=== PATIENT | female | born 1940 | race African-American/Black ===

== ENCOUNTER 2023-06-07 13:43 | Emergency (ER) | payer MEDICARE, OTHER, SELFPAY ==
[2023-06-07] VITALS (7 sets, daily range): BP systolic 136–174; BP diastolic 69–111
[2023-06-07 14:10] LABS: Glucose - Point of Care 109 mg/dl (70-99)
[2023-06-07 14:14] LABS: % Basophils 0.4 % (0-2); % Eosinophils 1.2 % (0-6); % Immature Granulocytes 0.4 % (0-0.5); % Lymphocytes 25.6 % (20.5-51.1); % Monocytes 6.3 % (1.7-9.3); % Neutrophils 66.1 % (42.2-75.2); Absolute Eosinophils 0.1 10^3/uL (0-0.7); Absolute Monocytes 0.5 10^3/uL (0.1-0.6); Absolute Neutrophils 5.2 10^3/uL (1.4-6.5); Hematocrit 45.2 % (37.0-47.0); Hemoglobin 13.9 g/dL (12.0-16.0); Mean Corp Hgb Conc. 30.8 g/dL (33.0-37.0); Mean Corpuscular Hgb 26.3 pg (27.0-31.0); Mean Corpuscular Volume 85.4 fL (81.0-99.0); Mean Platelet Volume 9.7 fL (7.4-10.4); Nucleated Red Blood Cells % 0 %; Platelet Count 192 10^3/uL (130-400); Red Blood Cell Count 5.29 10^6/uL (4.20-5.40); Red Cell Dist. Width 14.3 % (11.5-14.5); White Blood Cell Count 7.8 10^3/uL (4.8-10.8)
[2023-06-07 14:29] LABS: ALT (SGPT) 15 U/L (0-35); AST (SGOT) 25 U/L (14-36); Albumin 4.2 g/dl (3.5-5.0); Alkaline Phosphatase 81 U/L (38-126); Blood Urea Nitrogen 41 mg/dl (7-17); Calcium 9.8 mg/dl (8.4-10.2); Carbon Dioxide 33 mmol/L (22-30); Chloride 106 mmol/L (98-107); Glucose 121 mg/dl (70-99); Potassium 4.1 mmol/L (3.5-5.1); Sodium 145 mmol/L (135-145); Total Bilirubin 0.7 mg/dl (0.2-1.3); Total Protein 7.5 g/dl (6.3-8.2); eGFR 45.48
--- NOTE | 2023-06-07 16:05 | ED.GENMED ---
Addendum entered and electronically signed by Kushal Perdue PA-C 06/10/23 07:16:
Urine culture results were faxed to [facility] where patient is a long-term resident in her senior care facility. She was treated with 1 dose of Monuril here in the ER.
Original Note:
History of Present Illness
General
Chief Complaint: Failure to Thrive
Source: patient, skilled nursing and skilled nursing records
Exam Limitations: dementia
Time Seen by Provider: 06/07/23 15:13
Nursing documentation reviewed up to this point in time: agreed with
Travel History
Have you had any contact with someone who has COVID-19?: No
Do you have any symptoms of coronavirus? Fever > 100 degrees, chills, cough, shortness of breath, sore throat, loss of taste or smell, muscle aches, or headache?: No
History of Present Illness
History of Present Illness:
82-year-old female from [facility] here for reportedly losing 12 pounds in 4 days and eating very little. She has a history of dementia with behavioral disturbance, as her baseline, HTN, depressive disorder, dysphagia, type 2 diabetes,
caloric malnutrition, GERD, HLD, anxiety, bipolar, CKD, she is unable to provide a history, she does not know where she is. She denies pain specifically abdominal pain or chest pain.
I spoke with Nupur ZURITA, states she started not eating as much as usual over the past month. She could not be convinced to eat anymore or she would scratch and bite, is becoming more cantankerous, no complaint of pain, she states patient was on
hospice at 1 point but her son took her off.
Past History
Past History
ED Past Medical History: GERD, HTN, Hypercholesterolemia, NIDDM, Psychiatric (Hallucination, dementia with behavioral disturbance) and Other (Cerebral aneurysm, Dementia, generalized muscle weakness/impaired mobility, malnutrition)
ED Past Surgical History: None
Social History
Tobacco: Non-smoker
Alcohol: None
Drug: None
Personal: Single
Living: skilled nursing ([place])
Employment: Not employed
Family History
Family History: Unable to obtain
Review of Systems
Review of Systems
Allergies reviewed?: Yes
Unable to obtain full review of systems at this time due to: dementia
Other source history: skilled nursing
All Other Systems: ROS reviewed and negative except as documented in HPI and ROS
Constitutional: Denies fever
Respiratory: Denies trouble breathing
ABD/GI: Reports anorexia; Denies vomiting, diarrhea, bloody stools or black stools
Musculoskeletal: Denies edema
Phy Exam
Physical Exam
Physical Exam:
GENERAL: Cachectic, no acute distress. Alert, demented, cannot say where she is.
CONSTITUTIONAL: Afebrile.
EYES: PERRL, conjunctivae normal
ENMT: moist mucus membranes, Pharynx nl
RESPIRATORY: Regular respirations, nonlabored, lungs clear.
CARDIOVASCULAR: Regular rate and rhythm, no murmurs, no rubs.
GI: Soft, nontender, normal BS
Rectal: No stool in rectal vault
MUSCULOSKELETAL: Knees contracted flexed 60 degrees, well perfused. No edema
SKIN: Warm, dry, normal
PSYCH: Calm demented
NEUROLOGIC: Awake, alert. No focal neurological deficits
Course
Orders/Labs/Results
Orders:
Orders
06/07/23 14:01
Electrocardiogram (*1) Urgent
Reason for Study: Abdominal Pain
EKG- Treatment ONCE
06/07/23 14:02
Complete Blood Count/With Diff Urgent
Comprehensive Metabolic Panel Urgent
06/07/23 15:27
Straight cath- Treatment ONCE
06/07/23 15:28
0.9% Sodium Chloride 500 ml [Nss] 500 ml IV BOLUS
06/07/23 16:24
Urinalysis Reflex To Culture Urgent
Date Specimen was Collected: 03/04/24
Time Specimen was Collected: 16:23
Urine Microscopic Reflex Cult Urgent
Urine Culture Urgent
FIDELINA Source: U
Specimen Description:
Date Specimen was Collected: 06/07/23
Time Specimen was Collected: 16:23
06/07/23 17:46
Fosfomycin [Monurol] 3 gm PO ONCE ONE
Abnormal Lab Results
06/07/23 06/07/23 06/07/23
14:02 14:08 16:24
MCH 26.3 L pg
(27.0-31.0)
MCHC 30.8 L g/dL
(33.0-37.0)
Carbon Dioxide 33 H mmol/L
(22-30)
BUN 41 H mg/dl
(7-17)
Creatinine 1.2 H mg/dL
(0.6-1.0)
Glucose 121 H mg/dl
(70-99)
Urine Ketones 1+ A
(Negative)
Ur Occult Blood Reflex 2+ A
(Negative)
Urine Nitrite (Reflex) Positive A
(Negative)
Urine Bilirubin 1+ A
(Negative)
Leukocyte Esterase Rfl 1+ A
(Negative)
Urine RBC 3-6 A /HPF
(0-2)
Urine WBC (Reflex) 11-15 A /HPF
(0-5)
Urine Bacteria (Reflex) Moderate A
(Negative)
POC Glucose 109 H mg/dl
(70-99)
06/07/23 14:02
06/07/23 14:02
Vital Signs
Initial and Last Documented VS:
Initial Vital Signs
Pulse Resp BP Pulse Ox
62 20 136/69 97
06/07/23 13:49 06/07/23 13:49 06/07/23 13:49 06/07/23 13:49
Last Documented Vital Signs
Temp Pulse Resp BP Pulse Ox
98.2 F 70 20 147/111 100
06/07/23 13:59 06/07/23 18:00 06/07/23 13:49 06/07/23 18:00 06/07/23 16:00
MDM/Problems Addressed
Differential Diagnosis Includes:
UTI, dehydration, failure to thrive.
MDM/Problems Addressed:
Nupur ZURITA, states she started not eating as much as usual over the past month. She could not be convinced to eat anymore or she would scratch and bite, is becoming more cantankerous, no complaint of pain, she states patient was on hospice at 1 point
but her son took her off.
Patient is no distress, she is demented, she follows commands, she answer some questions seemingly appropriately
She is cachectic
EKG: Normal sinus rhythm
06/07/2023 1703 PM
CBC normal
CMP, BUN/creat 41/1.2 patient's baseline creatinine. IV fluids ordered for dehydration
06/07/2023 1750 PM
UA: +1 ketones, 2+ occult blood positive nitrites, positive leukocytes, WBC 50 11-15, culture pending. I will treat patient with 1 dose of Monurol pending urine cultures
Patient given IV fluids, treated for early UTI
I spoke with son Brett and explained that she is dehydrated and may have an early urinary tract infection, both of which were treated in the ER here. That there is no medical reason to admit her to the hospital, it is reported that she is not
eating and she cannot be forced to eat. He states he will discuss with her doctor the possibility of a feeding tube as she has had this in the past.
Patient is stable for discharge back to skilled nursing, she is alert and singing.
Chronic conditions affecting care: Psychiatric illness (dementia) and Other (malnutrition)
*Critical Care Note
Total Time (30-74mins, 75-104mins- exclusive of procedures): Not Applicable
ED Attending Note
-
Portions of this chart may have been created with voice recognition software.� Occasional wrong word or��sound alike� substitutions may have occurred due to the inherent limitations of voice recognition software.
Discharge Plan
Departure
Patient Disposition: Alf/SNF
Date of Disposition: 06/07/23
Time of Disposition: 17:52
Condition: Fair
Discharge Problem:
Adult failure to thrive, Acute UTI, Acute dehydration
Instructions: Urinary Tract Infection, Adult (DC), Failure to Thrive, Adult (DC), Dehydration, Adult ED
Prescriptions:
No Action
losartan 50 MG tablet
50 mg PO DAILY
famotidine 20 MG tablet
20 mg PO DAILY
trazodone 100 MG tablet
100 mg PO HS
acetaminophen 325 MG tablet
650 mg PO Q6H PRN (Reason: mild pain, temp>101)
amlodipine 5 MG tablet
5 mg PO DAILY
aspirin 81 MG tablet,delayed release (DR/EC)
81 mg PO DAILY
bisacodyl [OneLAX Bisacodyl] 10 MG suppository
[address] DAILY PRN (Reason: if mom ineffective)
simvastatin 20 MG tablet
20 mg PO HS
sorbitol 30 ML solution
30 ml PO DAILY PRN (Reason: if no bm x 3 days)
lamotrigine 100 MG tablet
100 mg PO BID
hyoscyamine sulfate 0.125 mg Tablet, Sublingual
0.125 mg SUBLINGUAL Q4H PRN (Reason: excess secretions)
Lorazepam Gel 1mg/Ml
0.5 mg topical Q4H PRN (Reason: anxiety)
magnesium oxide [MagOx] 400 MG tablet
400 mg PO BID
haloperidol 2 mg Tablet
2 mg PO BID Qty: 10 0RF
metoprolol succinate 100 mg Tablet Extended Release 24 Hr
50 mg PO BID
Fleet Enema 19-7 gram/118 mL Enema
[address] DAILY PRN (Reason: if suppository is ineffective)
sorbitol 70 % Solution
30 ml PO DAILY
Referrals:
James Mathews, [Family Provider] -
Activity Restrictions/Additional Instructions:
Ms. Roach was dehydrated and she received 500 mL of IV fluids. Her urine shows possibly an early urine infection, her culture is pending. We treated her for a UTI with 1 dose of Monurol
I spoke with her son Brett and updated him on her diagnosis and care here and informed him she would be coming back to the skilled nursing.
Interventions
Interventions:
*Risk Screen - Suicide Last Done: 06/07/23 13:49
*General Assessment Last Done: 06/07/23 13:49
*Neglect/Abuse Screening Last Done: 06/07/23 13:49
*Nursing Disposition Last Done: 06/07/23 19:05
Discharge Date and Time
Discharge Date/Time: 06/07/23 19:06
[2023-06-07] MEDS: NSS 500 IV (16:12)
[2023-06-07 16:52] LABS: Urine Albumin Trace (Neg - Trace); Urine Bilirubin 1+ (Negative); Urine Character Slightly Cloudy (Clear); Urine Color Yellow; Urine Glucose Negative (Negative); Urine Ketone 1+ (Negative); Urine Leukocyte 1+ (Negative); Urine Nitrite Positive (Negative); Urine Occult Blood 2+ (Negative); Urine Specific Gravity 1.025 (<1.030); Urine Urobilinogen Negative (Neg - 1+)
[2023-06-07 17:08] LABS: Urine Bacteria Moderate (Negative); Urine Squamous Cell >30 /LPF (Few)
[2023-06-07] MEDS: MONUROL 3 GM PO (18:03)
== END 2023-06-07 19:06 ==
LOC: EMR 13:43
PROVIDERS: Registered Nurse; EMERGENCY PHYSICIAN Emergency Medicine; FAMILY PHYSICIAN Internal Medicine
DX: R62.7 Adult failure to thrive (principal); E86.0 Dehydration; N39.0 Urinary tract infection, site not specified; F03.918 Unspecified dementia, unspecified severity, with other behavioral disturbance; E46 Unspecified protein-calorie malnutrition
CPT/HCPCS: 99284; 96360; 51701; 80053; 81003; 81015; 82962; 85025; 87077; 87086; 87186; 93005

== ENCOUNTER 2023-07-03 12:33 | Inpatient (IN) | payer MEDICARE, OTHER, SELFPAY ==
[2023-07-03] VITALS (9 sets, daily range): BP systolic 90–141; BP diastolic 50–74
[2023-07-03] MEDS: NSS 1000 IV ×2 (09:14→11:29)
--- NOTE | 2023-07-03 10:16 | ED.GENMED ---
History of Present Illness
General
Chief Complaint: Blood Pressure Problem
Source: records, long term and long term records
Exam Limitations: clinical condition
Time Seen by Provider: 07/03/23 08:41
Nursing documentation reviewed up to this point in time: agreed with
Travel History
Have you had any contact with someone who has COVID-19?: Unable to Answer
Do you have any symptoms of coronavirus? Fever > 100 degrees, chills, cough, shortness of breath, sore throat, loss of taste or smell, muscle aches, or headache?: Unable to Answer
History of Present Illness
History of Present Illness:
Patient is an 82-year-old female from a local long term for decreased mentation and hypotension. Patient has a history of similar episodes that seem to be related to dehydration and urinary tract infections. Patient's normally demented and
cachectic. Over the past few days the patient was noted to be not eating very much. Patient had clysis done in she still seemed to have decreased responsiveness. Patient is normally verbal. Patient's blood pressure was noted to be in the 60s
systolic today. Patient did not have a fever. Patient has not been coughing.
Past History
Past History
ED Past Medical History: GERD, HTN, Hypercholesterolemia, NIDDM, Psychiatric (Hallucination, dementia with behavioral disturbance) and Other (Cerebral aneurysm, Dementia, generalized muscle weakness/impaired mobility, malnutrition)
ED Past Surgical History: None
Social History
Tobacco: Non-smoker
Alcohol: None
Drug: None
Personal: Single
Living: long term ([place])
Employment: Not employed
Family History
Family History: Unable to obtain
Review of Systems
Review of Systems
All Other Systems: Not applicable
Phy Exam
Physical Exam
Physical Exam:
Physical Exam
General: No apparent distress, alert to noxious stimuli, cachectic, dry mucous membranes
HENT: Normocephalic, supple with no lymphadenopathy, no thyromegaly
Eyes: Clear sclera, conjuctiva without injection
Heart: Regular rhythm and rate. No S3, S4. No murmur. No NVD.
Lungs: No respiratory distress, no stridor, lung sounds clear and equal bilaterally
Abdomen: Soft, questionable right-sided tenderness without guarding or rebound, no organomegaly, BS good
Neuro: Alert minimally to noxious stimuli
Skin: no rash
Psychiatric: well kept
Extremities: No edema, cyanosis, tenderness. Contracted
Course
Orders/Labs/Results
Orders:
Orders
07/03/23 08:34
Electrocardiogram (*1) Urgent
Reason for Study: Fatigue / Weakness
EKG- Treatment ONCE
07/03/23 08:45
Felipe Placement- Treatment ONCE
Reason for insertion: Urology Determination
0.9% Sodium Chloride 1000 ml [Nss] 1,000 ml IV BOLUS
Pulse Ox/cont/shift [RESP] Urgent
Quantity: 1
07/03/23 09:28
Urinalysis Reflex To Culture Urgent
Date Specimen was Collected: 07/03/23
Time Specimen was Collected: 09:01
Urine Microscopic Reflex Cult Urgent
Urine Culture Urgent
FIDELINA Source: U
Specimen Description:
Date Specimen was Collected: 07/03/23
Time Specimen was Collected: 09:01
07/03/23 10:16
Complete Blood Count/With Diff Urgent
Comprehensive Metabolic Panel Urgent
Lactic Acid Q4H
Comment: CANCEL 2nd LACTIC ACID IF 1st LACTIC ACID IS LESS THAN 2
Blood Culture Q30M
FIDELINA Source: Blood/Venous
Specimen Description:
Blood Culture Q30M
FIDELINA Source: Blood/Venous
Specimen Description:
07/03/23 10:35
Cefepime HCl [Maxipime] 2,000 mg IV NOW STA
Abnormal Lab Results
07/03/23 07/03/23
09:28 10:16
MCH 26.6 L pg
(27.0-31.0)
MCHC 31.6 L g/dL
(33.0-37.0)
RDW 16.5 H %
(11.5-14.5)
MPV 11.9 H fL
(7.4-10.4)
BUN 165 H* mg/dl
(7-17)
Creatinine 7.2 H* mg/dL
(0.6-1.0)
Glucose 268 H mg/dl
(70-99)
AST 44 H U/L
(14-36)
Total Protein 5.9 L g/dl
(6.3-8.2)
Albumin 3.2 L g/dl
(3.5-5.0)
Urine Ketones 1+ A
(Negative)
Ur Occult Blood Reflex 4+ A
(Negative)
Urine Nitrite (Reflex) Positive A
(Negative)
Urine Bilirubin 2+ A
(Negative)
Leukocyte Esterase Rfl 2+ A
(Negative)
Urine Albumin (Reflex) 2+ A
(Neg - Trace)
07/03/23 10:16
07/03/23 10:16
Vital Signs
Initial and Last Documented VS:
Initial Vital Signs
Temp Pulse Resp BP
99.4 F 107 18 98/74
07/03/23 08:26 07/03/23 08:26 07/03/23 08:26 07/03/23 08:26
Last Documented Vital Signs
Temp Pulse Resp BP Pulse Ox
99.4 F 92 22 104/63 96
07/03/23 08:26 07/03/23 11:00 07/03/23 11:00 07/03/23 11:00 07/03/23 09:27
Procedures
Central Line
Right Femoral:
Indication for procedure:: Lack of access
Procedure completed by: germán
Consent form signed: No
Anesthesia: 1% Lidocaine
Central line lumen: triple
Number of attempts: 1
Central line complications: none
Sterile dressing applied?: Yes
*EKG
Interpreted by ED Provider?: Yes
EKG Intrepretation Date: 07/03/23
EKG Intrepretation Time: 11:28
Interpretation: abnormal
Comparison EKG: changes noted
Heart Rate: 103
Rate: tachycardiac
Rhythm: sinus
[place]: normal axis
Interval: normal interval
QRS Pattern: normal QRS
Ischemia: non-specific ST changes
*[place] Interpretation
Rate: tachycardiac
Interpretation: abnormal
Heart Rate: 106
Rhythm: sinus
*Critical Care Note
Total Time (30-74mins, 75-104mins- exclusive of procedures): 45 minutes
Update Note
Update Note:
Patient with acute renal failure probably secondary to dehydration. Patient also has a UTI. Patient will be admitted.
ED Attending Note
-
Portions of this chart may have been created with voice recognition software.� Occasional wrong word or��sound alike� substitutions may have occurred due to the inherent limitations of voice recognition software.
Discharge Plan
Departure
Patient Disposition: Admit
Date of Disposition: 07/03/23
Time of Disposition: 11:29
Admit to: Telemetry
Admit to doctor: Hospitalist
Presentation/result/management discussed w/ accepting MD/DO: Hospitalist
Patient with high blood pressure during this ER visit?: No
Condition: Serious
Covid-19: Not Applicable
Discharge Problem:
Acute renal failure, Dehydration, Acute UTI
Prescriptions:
No Action
losartan 50 MG tablet
50 mg PO DAILY
famotidine 20 MG tablet
20 mg PO DAILY
trazodone 100 MG tablet
100 mg PO HS
acetaminophen 325 MG tablet
650 mg PO Q6H PRN (Reason: mild pain, temp>101)
amlodipine 5 MG tablet
5 mg PO DAILY
aspirin 81 MG tablet,delayed release (DR/EC)
81 mg PO DAILY
bisacodyl [OneLAX Bisacodyl] 10 MG suppository
10 mg CA DAILY PRN (Reason: if mom ineffective)
simvastatin 20 MG tablet
20 mg PO HS
sorbitol 30 ML solution
30 ml PO DAILY PRN (Reason: if no bm x 3 days)
lamotrigine 100 MG tablet
100 mg PO BID
hyoscyamine sulfate 0.125 mg Tablet, Sublingual
0.125 mg SUBLINGUAL Q4H PRN (Reason: excess secretions)
Lorazepam Gel 1mg/Ml
0.5 mg topical Q4H PRN (Reason: anxiety)
magnesium oxide [MagOx] 400 MG tablet
400 mg PO BID
haloperidol 2 mg Tablet
2 mg PO BID Qty: 10 0RF
metoprolol succinate 100 mg Tablet Extended Release 24 Hr
50 mg PO BID
Fleet Enema 19-7 gram/118 mL Enema
118 ml CA DAILY PRN (Reason: if suppository is ineffective)
sorbitol 70 % Solution
30 ml PO DAILY
Referrals:
James Mathews, DO [Family Provider] -
Interventions
Interventions:
*Risk Screen - Suicide Last Done: 07/03/23 08:26
*General Assessment Last Done: 07/03/23 08:26
*Neglect/Abuse Screening Last Done: 07/03/23 08:26
*ED COVID-19 Vaccine History Last Done: 07/03/23 08:26
ED- Cardiac Assessment Last Done: 07/03/23 08:26
ED- Neurological Assessment Last Done: 07/03/23 08:26
ED- Pulmonary Assessment Last Done: 07/03/23 08:26
Discharge Date and Time
Print Language: LAO
[2023-07-03 10:31] LABS: Urine Albumin 2+ (Neg - Trace); Urine Bilirubin 2+ (Negative); Urine Character Very Cloudy (Clear); Urine Color Amber; Urine Glucose Negative (Negative); Urine Ketone 1+ (Negative); Urine Leukocyte 2+ (Negative); Urine Nitrite Positive (Negative); Urine Occult Blood 4+ (Negative); Urine Specific Gravity 1.015 (<1.030); Urine Urobilinogen 1+ (Neg - 1+)
[2023-07-03 10:36] LABS: % Basophils 0.6 % (0-2); % Immature Granulocytes 0.7 % (0-0.5); % Lymphocytes 7.5 % (20.5-51.1); % Monocytes 8.3 % (1.7-9.3); % Neutrophils 82.9 % (42.2-75.2); Absolute Basophils 0.1 10^3/uL (0-0.2); Absolute Immature Granulocytes 0.1 10^3/uL (0-0.05); Absolute Lymphocytes 0.7 10^3/uL (1.2-3.4); Absolute Monocytes 0.8 10^3/uL (0.1-0.6); Absolute Neutrophils 8.1 10^3/uL (1.4-6.5); Hematocrit 41.8 % (37.0-47.0); Hemoglobin 13.2 g/dL (12.0-16.0); Mean Corp Hgb Conc. 31.6 g/dL (33.0-37.0); Mean Corpuscular Hgb 26.6 pg (27.0-31.0); Mean Corpuscular Volume 84.3 fL (81.0-99.0); Mean Platelet Volume 11.9 fL (7.4-10.4); Nucleated Red Blood Cells % 0 %; Platelet Count 194 10^3/uL (130-400); Red Blood Cell Count 4.96 10^6/uL (4.20-5.40); Red Cell Dist. Width 16.5 % (11.5-14.5); White Blood Cell Count 9.8 10^3/uL (4.8-10.8)
[2023-07-03] MEDS: MAXIPIME 2000 MG IV (10:41)
[2023-07-03 10:48] LABS: Lactic Acid 1.8 mmol/L (0.7-2.0)
[2023-07-03 10:56] LABS: ALT (SGPT) 25 U/L (0-35); AST (SGOT) 44 U/L (14-36); Albumin 3.2 g/dl (3.5-5.0); Alkaline Phosphatase 91 U/L (38-126); Calcium 8.9 mg/dl (8.4-10.2); Carbon Dioxide 27 mmol/L (22-30); Chloride 106 mmol/L (98-107); Glucose 268 mg/dl (70-99); Potassium 5.1 mmol/L (3.5-5.1); Sodium 142 mmol/L (135-145); Total Bilirubin 0.7 mg/dl (0.2-1.3); Total Protein 5.9 g/dl (6.3-8.2)
[2023-07-03 11:00] LABS: Blood Urea Nitrogen 165 mg/dl (7-17)
[2023-07-03 11:32] LABS: Urine Bacteria Many (Negative); Urine Red Blood Cell 16-20 /HPF (0-2); Urine Triple Phosphate Crystal Present; Urine White Cell >100 /HPF (0-5)
--- NOTE | 2023-07-03 11:41 | HPS.HSE ---
Family Physician
-
Family Physician: James Mathews, DO
Chief Complaint
-
change in MS
History of Present Illness
82-year-old with past medical history for hypertension, depression, dysphagia, type 2 diabetes, malnutrition, GERD, hyperlipidemia anxiety bipolar, CKD presented to us with change in mental status. Patient is poor historian, not verbal. Unable to
provide any history. History obtained from son. Patient has not been feeling well for past few weeks. Patient not eating and drinking, patient lost more than 15 pounds in last few weeks. Patient received fluids at the care home. Today at
care home she was hypotensive and nonverbal.
Upon arrival patient was noted to be in ITZ. Hypotensive. Positive UA. Patient received a dose of cefepime in ER. Admitting for further management
Medical History
Past Medical History
Past Medical History: Reports Other
Additional Past Medical History:
Hypertension
Major depressive disorder
Alzheimer's
Left hip osteoarthritis
Hyperlipidemia
Type 2 diabetes
Bipolar
GERD
Chronic kidney disease
Past Surgical History: Reports Other
Additional Past Surgical History:
Surgery for brain aneurysm
Social History
Tobacco: Non-smoker
Alcohol: None
Drug: None
Personal: Single
Living: Long-Term
Family History
Family History: Not pertinent
Allergies / Home Medications
Allergies reflects when Allergies were last updated in [employer].
Home Medications with original date entered in [employer]
Allergy/Medication List:
Allergies
Allergy/AdvReac Type Severity Reaction Status Date / Time
No Known Allergies Allergy Verified 06/07/23 13:58
Home Medications
famotidine 20 mg tablet 20 mg PO DAILY Gastrointestinal issue 08/10/19
losartan 50 mg tablet 50 mg PO DAILY Blood pressure 08/10/19
trazodone 100 mg tablet 100 mg PO HS Depression 08/10/19
acetaminophen 325 mg tablet 650 mg PO Q6H PRN mild pain, temp>101 12/24/20
amlodipine 5 mg tablet 5 mg PO DAILY Blood pressure 12/24/20
aspirin 81 mg tablet,delayed release 81 mg PO DAILY Stroke 12/24/20
bisacodyl 10 mg rectal suppository (OneLAX Bisacodyl) 10 mg LA DAILY PRN if mom ineffective 12/24/20
lamotrigine 100 mg tablet 100 mg PO BID Mental Health/Anxiety 12/24/20
simvastatin 20 mg tablet 20 mg PO HS High cholesterol 12/24/20
sorbitol 70 % solution 30 ml PO DAILY PRN if no bm x 3 days 12/24/20
Lorazepam Gel 1mg/Ml 0.5 mg topical Q4H PRN anxiety 08/26/22
hyoscyamine sulfate 0.125 mg sublingual tablet 0.125 mg sublingual Q4H PRN excess secretions 08/26/22
magnesium oxide 400 mg (241.3 mg magnesium) tablet (MagOx) 400 mg PO BID Supplement 08/26/22
haloperidol 2 mg tablet 2 mg PO BID Mental Health/Anxiety #10 tabs 08/29/22
metoprolol succinate 100 mg tablet,extended release 24 hr 50 mg PO BID 06/07/23
sodium phosphates 19 gram-7 gram/118 mL enema (Fleet Enema) 118 ml LA DAILY PRN if suppository is ineffective 06/07/23
sorbitol 70 % solution 30 ml PO DAILY 06/07/23
Review of Systems
-
Unable to obtain full review of systems at this time due to: Acuity
Physical Exam
Vital Signs
Vital Signs
Temp Pulse Resp BP Pulse Ox
99.4 F 92 22 104/63 96
07/03/23 08:26 07/03/23 11:00 07/03/23 11:00 07/03/23 11:00 07/03/23 09:27
Physical Exam
General: Well Developed, Well Nourished and No Apparent Distress
HEENT: NormoCephalic, Moist mucous membranes and Atraumatic
Respiratory: Clear
Cardiac: S1/S2 and Regular Rhythm; No Murmur or Rub
GI: Soft, Non Tender, Non Distended and Normal Bowel Sounds; No Organomegaly
Rectal: Deferred by Provider
Musculoskeletal: No Clubbing, No Cyanosis and No Edema
Skin: No Rash
Laboratory Results
-
07/03/23 10:16
07/03/23 10:16
Laboratory Results
Lactic Acid 1.8 mmol/L (0.7-2.0) 07/03/23 10:16
Total Bilirubin 0.7 mg/dl (0.2-1.3) 07/03/23 10:16
AST 44 U/L (14-36) H 07/03/23 10:16
ALT 25 U/L (0-35) 07/03/23 10:16
Alkaline Phosphatase 91 U/L (38-126) 07/03/23 10:16
Data Reviewed
-
Lab Data: Labs Reviewed by me
Impression/Plan
-
# severe sepsis/Metabolic encephalopathy likely from urinary tract infection
-hxt of E coli UTI
-iv Zosyn
-culture sent from ER
-Tylenol as needed for fever
# Failure to thrive/history of dysphagia
-Speech consulted
# Hypotension likely from dehydration
# History of hypertension
-Lactated Ringer's 75cc/hr continued
-Continue to monitor vital signs
-Hold antihypertensive
# Acute kidney injury likely from dehydration
-Creatinine 7.2, BUN 165
-Fluids continued
-Monitor BMP
#Advanced dementia with behavioral disturbance
-Hold oral medications until evaluated by speech
#Type 2 diabetes--Insulin sliding scale
#History of CVA- hold all meds until evaluated by speech
#Cerebral aneurysm
#Hyperlipidemia
Full code
DVT prophylaxis�heparin
--- NOTE | 2023-07-03 12:49 | CM ---
CM following re: discharge planning.
Reviewed pt's chart, met with pt.
Pt is an 82 year old female, admitted with primary dx of severe sepsis/Metabolic encephalopathy likely from urinary tract infection.
Pt is not a great historian. CM left a message to pt's son Brett at [phone]. Per chart review, pt is a nursing home care resident at [facility], requires total care.
PCP: James Simms
Pharmacy: [facility]
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
CM will follow with discharge plan updates as hospitalization progresses
[2023-07-03] MEDS: LR 1000 IV (14:30)
[2023-07-03] MEDS: ZOFRAN 4 MG IV (14:30)
--- NOTE | 2023-07-03 14:47 | W.PN.UPDATE ---
Update Note
Progress Note Update
This note serves as an addendum to the H&P by Iman Torres on 07/02
82-year-old with past medical history for hypertension, depression, dysphagia, type 2 diabetes, malnutrition, GERD, hyperlipidemia anxiety bipolar, CKD presented to us with change in mental status. Was recently seen in the hospital for weight loss,
possible mental status changes and given fosfomycin and discharged. Patient's mental status became worse, not eating, drinking. Patient is poor historian therefore collateral is from the son. Patient has lost 15 pounds in the last few weeks.
Patient was brought into the hospital for hypotension, was given IV fluids in the detention. Also to be nonverbal which is new. Vitals with evidence of initial hypotension improved with fluids. Respiratory rate of 28 max, pulse of 103,
afebrile. Patient nonverbal. Labs remarkable for significant ITZ (7.2-1.23 weeks ago), UA positive. CT head negative for acute changes. Was started on antibiotics and given 2.5 L in the ED. Patient has history of E. coli, Klebsiella pneumoniae
UTI in the past. Plan�continue Zosyn, follow-up cultures. Speech eval, n.p.o. until speech evaluation. Continue LR at 75 cc/h, monitor for fluid overload. Hold antihypertensives. Monitor BMP with fluid resuscitation. Haldol as needed for acute
agitation is holding behavioral disturbance medications. Sliding scale for insulin/diabetes.
[2023-07-03] MEDS: ZOSYN 50 IV ×2 (15:10→22:00)
--- NOTE | 2023-07-03 15:53 | PTOTSP ---
SPEECH THERAPY SWALLOW EVALUATION:
Patient exhibits clinical signs of oropharyngeal dysphagia, likely chronic related to dementia and history of dysphagia, and acutely exacerbated by altered mental status and lethargy. Patient is at high risk for aspiration and related complications
given confusion and lethargy. Patient is clearly unsafe for oral diet at this time. Recommend strict NPO; Consider short-term alternate means for nutrition/medication/hydration. Speech therapy to follow, re-assess patient in 24 hours, assess
readiness for additional p.o. trials/textures, and provide continued diagnostic swallow therapy as appropriate.
RECOMMEND:
1) Strict NPO; Consider short-term alternate means for nutrition/medication/hydration
2) Speech therapy to follow, re-assess patient in 24 hours, assess readiness for additional p.o. trials/textures, and provide continued diagnostic swallow therapy as appropriate
[2023-07-03 17:12] LABS: Glucose - Point of Care 182 mg/dl (70-99)
--- NOTE | 2023-07-03 17:42 | PTCARENOTE ---
Rec'd pt from ED, pt non-verbal, unable to answer questions. Fluid initiated, call khan placed within reach, does not ring juan., bed alarm placed under patient, rounding in place, will cont to monitor.
[2023-07-03] MEDS: NOVOLOG FLEXPEN-LOW RESISTANCE 1 UNITS SC (17:57)
[2023-07-03] MEDS: HEPARIN 5000 UNITS SC (20:35)
[2023-07-03 23:46] LABS: Glucose - Point of Care 52 mg/dl (70-99)
[2023-07-03] MEDS: DEXTROSE 50% SYRINGE 12.5 GRAMS IV (23:51)
[2023-07-04] MEDS: NOVOLOG FLEXPEN-LOW RESISTANCE SC ×3 (00:01→18:09)
[2023-07-04 00:31] LABS: Glucose - Point of Care 46 mg/dl (70-99)
[2023-07-04 00:35] LABS: Glucose - Point of Care 183 mg/dl (70-99)
[2023-07-04 03:21] LABS: Glucose - Point of Care 215 mg/dl (70-99)
[2023-07-04 04:12] VITALS: BP 112/95
[2023-07-04] MEDS: LR 1000 IV ×2 (04:59→18:21)
[2023-07-04] MEDS: ZOSYN 50 IV ×3 (05:00→21:49)
[2023-07-04 05:49] LABS: Glucose - Point of Care 167 mg/dl (70-99)
[2023-07-04] MEDS: NOVOLOG FLEXPEN-LOW RESISTANCE 1 UNITS SC (05:50)
[2023-07-04 07:13] LABS: Hemoglobin 11.3 g/dL (12.0-16.0); Mean Corp Hgb Conc. 31.4 g/dL (33.0-37.0); Mean Corpuscular Hgb 26.3 pg (27.0-31.0); Mean Corpuscular Volume 83.9 fL (81.0-99.0); Mean Platelet Volume 11.4 fL (7.4-10.4); Platelet Count 152 10^3/uL (130-400); Red Blood Cell Count 4.29 10^6/uL (4.20-5.40); Red Cell Dist. Width 16.3 % (11.5-14.5); White Blood Cell Count 8.5 10^3/uL (4.8-10.8)
[2023-07-04 07:45] VITALS: BP 118/56
[2023-07-04 07:52] LABS: Calcium 8.3 mg/dl (8.4-10.2); Carbon Dioxide 27 mmol/L (22-30); Chloride 115 mmol/L (98-107); Estimated Creatinine Clearance 6 ml/min; Glucose 173 mg/dl (70-99); Potassium 4.1 mmol/L (3.5-5.1); Sodium 146 mmol/L (135-145); eGFR 9.83
[2023-07-04 07:59] LABS: Blood Urea Nitrogen 132 mg/dl (7-17)
--- NOTE | 2023-07-04 11:08 | PTOTSP ---
Chart reviewed, spoke with RN who reports patient is non-verbal and not following any commands. Entered room, patient in left sidelying with neck positioned in full flexion. Attempted to have patient open eyes and squeeze hand but did not respond to
verbal or tactile cues. Attempted PROM of right UE and right LE but patient with increased tone and difficulty extension elbow and knee. Skilled PT not warranted at this time, please reconsult if status improves.
[2023-07-04] MEDS: HEPARIN 5000 UNITS SC ×2 (11:09→20:00)
[2023-07-04 11:36] VITALS: BP 111/54
[2023-07-04 11:40] LABS: Glycohemoglobin (HgbA1c) 6.9 % (4.0-5.6)
[2023-07-04 11:57] LABS: Glucose - Point of Care 109 mg/dl (70-99)
--- NOTE | 2023-07-04 14:21 | W.PN.HOSP.TC ---
Today's Communication/Plan
-
abx
f/u cultures
fluids
monitor bmp
f/u mrsa swab
Assessment / Plan
Assessment / Plan
Physical Exam
General: Well Developed, Well Nourished and No Apparent Distress
HEENT: NormoCephalic, Moist mucous membranes and Atraumatic
Respiratory: Clear
Cardiac: S1/S2 and Regular Rhythm; No Murmur or Rub
GI: Soft, Non Tender, Non Distended and Normal Bowel Sounds; No Organomegaly
Rectal: Deferred by Provider
Musculoskeletal: No Clubbing, No Cyanosis and No Edema
Skin: No Rash
# severe sepsis
#Bacteremia
--f/u cultures
-Repeat blood cultures
-ECHO
-Zosyn
-Tylenol as needed for fever
# ITZ
-2/2 to pre-renal etiology v septic atn
-Creatinine 7.2, BUN 165
-Fluids continued
-Monitor BMP
-improving
#Acute on chronic metabolic encephalopathy
#Advanced dementia with behavioral disturbance
-Worsened with severe sepsis
-Continue moderate resuscitation
-Speech eval, will anticipate NG tube placement and feedings if no improvement in mental status
-holding oral meds due to mental status
#Hypernatremia
-monitor with resuscitation
# Failure to thrive/history of dysphagia
-Speech consulted
# Hypotension likely from dehydration
# History of hypertension
-Lactated Ringer's 75cc/hr continued
-Continue to monitor vital signs
-Hold antihypertensives
#Type 2 diabetes--Insulin sliding scale
#History of CVA- hold all meds until evaluated by speech
#Cerebral aneurysm
#Hyperlipidemia
Full code
DVT prophylaxis�heparin
Total time spent on today's encounter was 50 minutes which included time spent in counseling the patient/family regarding diagnosis and treatment plan as listed above, goals of care, and symptom management. Case was discussed with nursing staff,
specialists, and care coordinators/case management. All labs and imaging personally reviewed by me. Remainder the time spent in detailed review of previous records, lab data, imaging, and other medical provider documentation.
Anticipated Discharge: > 48 hours
Subjective/Interval History
-
Date of Service: July 04, 2023
still not speaking although protecting airway
Objective Data
-
Labs:
Laboratory Results
07/04/23
06:51
WBC 8.5
Hgb 11.3 L
Hct 36.0 L
Plt Count 152 D
Sodium 146 H
Potassium 4.1
Chloride 115 H
Carbon Dioxide 27
BUN 132 H*
Creatinine 4.3 H*
Glucose 173 H
Calcium 8.3 L
Vital Signs:
Vital Signs
Temp Pulse Resp BP Pulse Ox
97.9 F 86 18 111/54 97
07/04/23 11:36 07/04/23 11:36 07/04/23 11:36 07/04/23 11:36 07/04/23 11:36
I&O
07/03/23 07/04/23 07/05/23
06:59 06:59 06:59
Intake Total 925 / 925
Output Total 850 / 850
Balance 75 / 75
Review of Systems
-
Unable to obtain full review of systems at this time due to: Dementia
Physical Exam
-
General: Appears Chronically Ill and Cachectic
HEENT: Normocephalic and Atraumatic
Respiratory: Clear to Auscultation; Negative Wheezes or Rhonchi
Cardiac: Regular Rhythm and S1/S2; Negative Murmur
GI: Soft, Nontender, Nondistended and Normal Bowel Sounds
Musculoskeletal: No Clubbing, No Cyanosis, No Edema and Other (contracted)
Skin: Warm
Neuro: Other (non verbal)
Psych: Apparent Dementia
Data Reviewed
-
CT Scan: Image personally visualized and interpreted and Report Reviewed by me
Labs: Labs Reviewed by me
[2023-07-04 15:35] VITALS: BP 118/57
[2023-07-04 17:40] LABS: Glucose - Point of Care 88 mg/dl (70-99)
[2023-07-04 19:35] VITALS: BP 119/62
[2023-07-04 23:17] VITALS: BP 93/60
[2023-07-05 00:21] LABS: Glucose - Point of Care 77 mg/dl (70-99)
[2023-07-05 00:27] VITALS: BP 107/71
[2023-07-05] MEDS: NOVOLOG FLEXPEN-LOW RESISTANCE SC ×4 (00:28→17:53)
[2023-07-05 02:55] LABS: Glucose - Point of Care 80 mg/dl (70-99)
[2023-07-05 03:05] VITALS: BP 121/76
[2023-07-05] MEDS: ZOSYN 50 IV ×2 (05:08→14:12)
[2023-07-05 06:07] LABS: Glucose - Point of Care 80 mg/dl (70-99)
[2023-07-05] MEDS: LR 1000 IV (06:27)
[2023-07-05 06:51] LABS: Hemoglobin 9.8 g/dL (12.0-16.0); Mean Corp Hgb Conc. 30.6 g/dL (33.0-37.0); Mean Corpuscular Hgb 26.8 pg (27.0-31.0); Mean Corpuscular Volume 87.7 fL (81.0-99.0); Mean Platelet Volume 11.5 fL (7.4-10.4); Platelet Count 127 10^3/uL (130-400); Red Blood Cell Count 3.65 10^6/uL (4.20-5.40); Red Cell Dist. Width 16.4 % (11.5-14.5)
[2023-07-05 07:42] LABS: Blood Urea Nitrogen 97 mg/dl (7-17); Calcium 8.6 mg/dl (8.4-10.2); Carbon Dioxide 26 mmol/L (22-30); Chloride 119 mmol/L (98-107); Estimated Creatinine Clearance 11 ml/min; Glucose 78 mg/dl (70-99); Potassium 4.2 mmol/L (3.5-5.1); Sodium 148 mmol/L (135-145); eGFR 19.79
[2023-07-05 07:45] VITALS: BP 123/57
[2023-07-05] MEDS: D5/0.45%NACL 1000 IV (09:15)
[2023-07-05] MEDS: HEPARIN 5000 UNITS SC ×2 (09:16→20:32)
--- NOTE | 2023-07-05 12:09 | CM ---
operations section manager reviewed patient's chart and reached out to patient's son, Brett who mentioned that he would like to look at alternative nursing facilities for his mother, patient has been at [facility] for several years, and possible was a level 2 at
[facility], showcase maker will need to reach out to [facility] to initiate alternative skilled placement for patient.
Plan; Patient's son is looking for alternative skilled options for patient, showcase maker explained to patient's son Brett that this process is difficult as not only has patient been at [facility] for several years but patient also is a level 2
and level 2 paperwork will need to be located, patient may have to return to [facility], son is aware.
[2023-07-05 12:40] LABS: Glucose - Point of Care 70 mg/dl (70-99)
[2023-07-05 12:43] VITALS: BP 142/74
--- NOTE | 2023-07-05 14:16 | W.PN.HOSP.TC ---
Today's Communication/Plan
-
f/u cultures
cont abx
echo
switch to d51/2NS
Assessment / Plan
Assessment / Plan
Physical Exam
General: Well Developed, Well Nourished and No Apparent Distress
HEENT: NormoCephalic, Moist mucous membranes and Atraumatic
Respiratory: Clear
Cardiac: S1/S2 and Regular Rhythm; No Murmur or Rub
GI: Soft, Non Tender, Non Distended and Normal Bowel Sounds; No Organomegaly
Rectal: Deferred by Provider
Musculoskeletal: No Clubbing, No Cyanosis and No Edema
Skin: No Rash
# severe sepsis
#Bacteremia
--f/u cultures
-Repeat blood cultures
-ECHO
-Zosyn
-Tylenol as needed for fever
-ID consult
# ITZ
-2/2 to pre-renal etiology v septic atn
-Creatinine 7.2, BUN 165 upon admission
-Fluids continued
-Monitor BMP
-improving
#Acute on chronic metabolic encephalopathy
#Advanced dementia with behavioral disturbance
-Worsened with severe sepsis
-Continue moderate resuscitation
-Speech eval, will anticipate NG tube placement and feedings if no improvement in mental status
-holding oral meds due to mental status
#Anemia
-most likely dilution v sepsis
-monitor for bleeding, no evidence thus far
-ctm
#Hypernatremia
-monitor with resuscitation
-start d51/2 NS
# Failure to thrive/history of dysphagia
-Speech consulted
# Hypotension likely from dehydration
# History of hypertension
-stop lr, switch to d51/2NS
-Continue to monitor vital signs
-Hold antihypertensives
#Type 2 diabetes--Insulin sliding scale
#History of CVA- hold all meds until evaluated by speech
#Cerebral aneurysm
#Hyperlipidemia
Full code
DVT prophylaxis�heparin
Total time spent on today's encounter was 51 minutes which included time spent in counseling the patient/family regarding diagnosis and treatment plan as listed above, goals of care, and symptom management. Case was discussed with nursing staff,
specialists, and care coordinators/case management. All labs and imaging personally reviewed by me. Remainder the time spent in detailed review of previous records, lab data, imaging, and other medical provider documentation.
Anticipated Discharge: > 48 hours
Subjective/Interval History
-
Date of Service: July 05, 2023
a bit more verbal today although nonsensical
Objective Data
-
Labs:
Laboratory Results
07/05/23
06:36
WBC 8.0
Hgb 9.8 L
Hct 32.0 L
Plt Count 127 L
Sodium 148 H
Potassium 4.2
Chloride 119 H
Carbon Dioxide 26
BUN 97 H
Creatinine 2.4 H
Glucose 78
Calcium 8.6
Vital Signs:
Vital Signs
Temp Pulse Resp BP Pulse Ox
98.0 F 85 18 142/74 97
07/05/23 12:43 07/05/23 12:43 07/05/23 12:43 07/05/23 12:43 07/05/23 12:43
I&O
07/04/23 07/05/23 07/06/23
06:59 06:59 06:59
Intake Total 925 / 925 1775 / 1775
Output Total 850 / 850 1125 / 1125
Balance 75 / 75 650 / 650
Review of Systems
-
History Source: Patient
All other systems: Not reviewed unless documented
Physical Exam
-
General: Appears Chronically Ill and Cachectic
HEENT: Normocephalic and Atraumatic
Respiratory: Clear to Auscultation; Negative Wheezes or Rhonchi
Cardiac: Regular Rhythm and S1/S2; Negative Murmur
GI: Soft, Nontender, Nondistended and Normal Bowel Sounds
Musculoskeletal: No Clubbing, No Cyanosis, No Edema and Other (contracted)
Skin: Warm
Neuro: Other (non verbal)
Psych: Apparent Dementia
Data Reviewed
-
CT Scan: Image personally visualized and interpreted and Report Reviewed by me
Labs: Labs Reviewed by me
--- NOTE | 2023-07-05 15:20 | CON.ID ---
Consultation
-
Date/Time Consultation Requested: July 05, 2023 1439
Date/Time Consultation Performed: July 05, 2023 1520
Requesting Provider: Dr. Den Ocampo
Performing Provider: Dr. Roxanna Simeon
Reason for Consultation: bacteremia
Chief Complaint / Past History
Chief Complaint
Failure to thrive
History of Present Illness
History obtained from review of medical records since patient has advanced dementia and unable to provide any history. She is a 82-year-old female with diabetes mellitus, CVA, bedbound, severe protein calorie malnutrition, chronic iglesias who came
from [facility] on July 02 due to poor oral intake, 15 pound weight loss, decreased mental status and low blood pressure. Patient was found to be in acute kidney failure due to dehydration. She was also started on Zosyn for
presumed UTI. Of note she was in the ED on June and received a dose of fosfomycin for ESBL E. coli in the urine. On July 02 her urinalysis positive nitrite 2+ leukocyte esterase more than 100 white blood cells and urine culture more than
100,000 colonies forming units of diphtheroids. Blood cultures x 2 on admission are positive.
Past History
Additional Past Medical History:
Advanced dementia with behavioral disturbance
HTN
DM2
HLD
CVA
protein-calorie malnutrition
depression/anxiety
bipolar
CKD
osteoarthritis
hx cerebral aneurysm clipping, intracranial shunt
Allergy History:
No Known Allergies Allergy (Verified 06/07/23 13:58)
Medications Reviewed: Yes
Current Antibiotics:
zosyn d3
Social History
Tobacco: Non-Smoker
Alcohol: None
Drug: None
Living: Prison
Family History
Family History: Not Pertinent
Review of Systems
Review of Systems
Unable to obtain due to dementia.
Vital Signs
Temp Pulse Resp BP Pulse Ox
98.0 F 85 18 142/74 97
07/05/23 12:43 07/05/23 12:43 07/05/23 12:43 07/05/23 12:43 07/05/23 12:43
Physical Exam
Physical Exam
Constitutional: Chronically Ill and Cachetic (severe)
Eyes: No Conjunctival Hemorrhage and Sclera Anicteric
Oral: Other (saliva drooling from mouth)
Cardiovascular: Regular Rate and S1/S2
Pulmonary: Other (poor respiratory effort, othewise clear)
Gastrointestinal: Soft, Non Tender, Non Distended and Normal Bowel Sounds
Genito-Urinary: Iglesias and Clear Urine; Negative CVA Tenderness
Extremities: Negative Edema
Musculoskeletal: Other (UE, LE contractures)
Neurological: Awake
Psychological: Other (Dementia)
Lab / Diagnostic Study Results
07/05/23 06:36
07/05/23 06:36
Abs Immat Gran (auto) 0.1 10^3/uL (0-0.05) H 07/03/23 10:16
Absolute Neuts (auto) 8.1 10^3/uL (1.4-6.5) H 07/03/23 10:16
Absolute Lymphs (auto) 0.7 10^3/uL (1.2-3.4) L 07/03/23 10:16
Absolute Monos (auto) 0.8 10^3/uL (0.1-0.6) H 07/03/23 10:16
Absolute Basos (auto) 0.1 10^3/uL (0-0.2) 07/03/23 10:16
Immature Gran % 0.7 % (0-0.5) H 07/03/23 10:16
Neutrophils % 82.9 % (42.2-75.2) H 07/03/23 10:16
Lymphocytes % 7.5 % (20.5-51.1) L 07/03/23 10:16
Monocytes % 8.3 % (1.7-9.3) 07/03/23 10:16
Eosinophils % 0.0 % (0-6) 07/03/23 10:16
Basophils % 0.6 % (0-2) 07/03/23 10:16
Lactic Acid 1.8 mmol/L (0.7-2.0) 07/03/23 10:16
Ur Squamous Epith Cells 3-5 /LPF (Few) 07/03/23 09:28
Microbiology Results
Micro:
07/03/23 09:28 Urine Culture - Final
Urine Diptheroids
07/05/23 10:08 Blood Culture - Pending
Blood/Venous
07/04/23 10:38 Blood Culture - Preliminary
Blood/Venous No Growth in 24 hours- Final report to follow
07/03/23 10:16 Blood Culture - Preliminary
Blood/Venous Positive culture in progress
Gram Stain - Final
07/03/23 10:16 Blood Culture - Preliminary
Blood/Venous Positive culture in progress
Gram Stain - Final
07/03/23 20:08 MRSA Screen - Final
Nose No Methicillin Resistant Staphylococcus aureus isolated.
Assessment / Plan
# Diphtheroid bacteruria from iglesias catheter
# Bacteremia
1 set of bcx GPC cluster, not Staph species/Enterococcus/Strep
2nd set of blood cx gram positive bacilli
Possible contaminant
?diphtheroid from urine (usually considered contaminant)
Repeat blood cx's neg to date.
-DC Zosyn
- Start empiric IV Vancomycin pending identification of organism
# ITZ on CKD improving
Adjust abx dosing as needed
# Severe cachexia/protein-calorie malnutrition
# Dysphagia
[2023-07-05 15:55] VITALS: BP 149/61
--- NOTE | 2023-07-05 16:14 | PHA.VAN.IN ---
Assessment
- Assessment
Renal Function: Appears elevated from baseline (08/28/22 BASELINE SCR: 1.0)
Concomitant Antimicrobials: NONE
- Previous Dosing Experience
Previous Regimen: 750MG IV Q24H
Date of Regimen: 10/03/19
Provided Trough of: UNKNOWN
Provided AUC of: 494 PREDICTED
Patient's SCR is: Elevated compared to previous dosing experience (10/03/19 SCR = 0.8)
Patient's weight is: Decreased compared to previous dosing experience (10/03/19 WT = 51 KG)
Plan
- Plan
Initial / Loading Dose: 1GM
Maintenance Regimen: DOSING BY RANDOM LEVELS
Monitoring: RANDOM VANCOMYCIN LEVEL 07/06/23
Pharmacokinetics Vancomycin I
- -
Patient Age: 82
Patient Sex: Female
Vancomycin Day #: 1
Indication: Bacteremia
Requesting Provider: EL
Height / Weight:
Height 5 ft 6 in
Actual Weight 38.9 kg
Pertinent Past Medical History: PRIOR TX FOR UTI [06/26]
- Vital Signs / Lab Results
Temp Pulse Resp BP Pulse Ox
98.0 F 85 18 142/74 97
07/05/23 12:43 07/05/23 12:43 07/05/23 12:43 07/05/23 12:43 07/05/23 12:43
Lab Results - Hematology
07/03/23 07/04/23 07/05/23
10:16 06:51 06:36
WBC 9.8 8.5 8.0
Lab Results - Chemistry
07/03/23 07/04/23 07/05/23
10:16 06:51 06:36
BUN 165 H* 132 H* 97 H
Creatinine 7.2 H* 4.3 H* 2.4 H
Estimated Creat Clear 6 11
Albumin 3.2 L
07/03/23 07/03/23
09:00 10:16
Lactic Acid Cancelled 1.8
Lab Results - Urine
07/03/23
09:28
Urine Nitrite (Reflex) Positive A
Leukocyte Esterase Rfl 2+ A
Urine WBC (Reflex) >100 A
Ur Squamous Epith Cells 3-5
Urine Bacteria (Reflex) Many A
Microbiology Results
07/03/23 10:16 Blood Culture - Preliminary
Blood/Venous Positive culture in progress
Gram Stain - Final
07/03/23 09:28 Urine Culture - Final
Urine Diptheroids
07/04/23 10:38 Blood Culture - Preliminary
Blood/Venous No Growth in 24 hours- Final report to follow
07/03/23 10:16 Blood Culture - Preliminary
Blood/Venous Positive culture in progress
Gram Stain - Final
07/03/23 20:08 MRSA Screen - Final
Nose No Methicillin Resistant Staphylococcus aureus isolated.
[2023-07-05 16:53] LABS: Glucose - Point of Care 131 mg/dl (70-99)
[2023-07-05] MEDS: VANCOCIN 200 IV (16:54)
[2023-07-05 17:06] VITALS: BMI 13.8
[2023-07-05 22:45] VITALS: BP 146/76
[2023-07-05 23:56] LABS: Glucose - Point of Care 137 mg/dl (70-99)
[2023-07-06] MEDS: NOVOLOG FLEXPEN-LOW RESISTANCE SC ×3 (00:03→11:50)
[2023-07-06 05:27] LABS: Hemoglobin 10.1 g/dL (12.0-16.0); Mean Corp Hgb Conc. 30.6 g/dL (33.0-37.0); Mean Corpuscular Hgb 26.4 pg (27.0-31.0); Mean Corpuscular Volume 86.4 fL (81.0-99.0); Mean Platelet Volume 11.2 fL (7.4-10.4); Platelet Count 135 10^3/uL (130-400); Red Blood Cell Count 3.82 10^6/uL (4.20-5.40); Red Cell Dist. Width 16.2 % (11.5-14.5); White Blood Cell Count 8.3 10^3/uL (4.8-10.8)
[2023-07-06] MEDS: D5/0.45%NACL 1000 IV (05:48)
[2023-07-06 05:51] LABS: Blood Urea Nitrogen 62 mg/dl (7-17); Calcium 8.5 mg/dl (8.4-10.2); Carbon Dioxide 28 mmol/L (22-30); Chloride 116 mmol/L (98-107); Estimated Creatinine Clearance 16 ml/min; Glucose 132 mg/dl (70-99); Potassium 3.6 mmol/L (3.5-5.1); Sodium 148 mmol/L (135-145); eGFR 29.94
[2023-07-06 05:55] LABS: Vancomycin Random 12.5 ug/ml
[2023-07-06 06:04] LABS: Glucose - Point of Care 131 mg/dl (70-99)
[2023-07-06 07:45] VITALS: BP 141/85
[2023-07-06] MEDS: HEPARIN 5000 UNITS SC ×2 (07:51→20:12)
--- NOTE | 2023-07-06 10:33 | PHA.VAN.FU ---
Vancomycin Assessment / Plan
- Assessment
Renal Function: SCR Decreasing
WBC's are: WNL
In the past 24 hrs, patient has been: Afebrile
- Assessment - Therapeutic Drug Monitoring
Random Level: 12.5 - drawn ~12H after initial dose of 1000mg
Specimen was not protected from light and may have had some degradation from true value
- Dosing Plan
Dosing by Level: Re-dose today (Vanc 500mg)
- Monitoring Plan
Random Level: 07/06 0600
- Follow Up
Pharmacy will continue to follow.
Vancomycin Follow UP
- -
Patient Age: 82
Patient Sex: Female
Vancomycin Day #: 2
Indication: Bacteremia
Requesting Provider: Dr. Simeon
Pertinent Antimicrobial Allergies:
NKDA
Height / Weight:
Height 5 ft 6 in
Actual Weight 38.9 kg
IBW in k.3
Pertinent Past Medical History: BMI ~13.8, DM2, CKD
- Vital Signs / Lab Results
Temp Pulse Resp BP Pulse Ox
98.6 F 86 18 146/76 94
07/06/23 07:45 07/06/23 07:45 07/06/23 07:45 07/05/23 22:45 07/06/23 07:45
Lab Results - Hematology
07/03/23 07/04/23 07/05/23
10:16 06:51 06:36
WBC 9.8 8.5 8.0
07/06/23
05:09
WBC 8.3
Lab Results - Chemistry
07/03/23 07/04/23 07/05/23
10:16 06:51 06:36
BUN 165 H* 132 H* 97 H
Creatinine 7.2 H* 4.3 H* 2.4 H
Estimated Creat Clear 6 11
Albumin 3.2 L
07/06/23
05:09
BUN 62 H
Creatinine 1.7 H
Estimated Creat Clear 16
Albumin
07/03/23 07/03/23
09:00 10:16
Lactic Acid Cancelled 1.8
Microbiology Results
07/05/23 10:08 Blood Culture - Preliminary
Blood/Venous No Growth in 24 hours- Final report to follow
07/03/23 10:16 Blood Culture - Preliminary
Blood/Venous Positive culture in progress
Gram Stain - Final
07/03/23 09:28 Urine Culture - Final
Urine Diptheroids
07/04/23 10:38 Blood Culture - Preliminary
Blood/Venous No Growth in 24 hours- Final report to follow
07/03/23 10:16 Blood Culture - Preliminary
Blood/Venous Positive culture in progress
Gram Stain - Final
07/03/23 20:08 MRSA Screen - Final
Nose No Methicillin Resistant Staphylococcus aureus isolated.
Therapeutic Drug Monitoring
Random Vancomycin 12.5 ug/ml 07/06/23 05:09
[2023-07-06] MEDS: VANCOCIN HCL 500 MG 100 IV (11:22)
[2023-07-06 11:49] LABS: Glucose - Point of Care 143 mg/dl (70-99)
--- NOTE | 2023-07-06 12:00 | PTOTSP ---
ST Follow-Up
Pt presents with mild to moderate oral dysphagia 2/2 acute encephalopathy and edentulous oral cavity.
Recommendations:
- Initiate PO diet of pureed solids, thin liquids, meds crushed in puree.
- COMMERCIAL SUBCONTRACTOR will continue to follow to assess pt candidacy for diet upgrades and monitor for safe PO intake.
--- NOTE | 2023-07-06 13:01 | W.PN.HOSP.TC ---
Addendum entered and electronically signed by Madelyn Zuñiga MD 07/06/23 16:02:
# Severe protein calorie malnutrition
# stage 2 left ischium pressure injury, POA
Original Note:
Today's Communication/Plan
-
see A/P
Assessment / Plan
Assessment / Plan
A/P:
# severe sepsis POA with Bacteremia
# Diphtheroid UTI
remove Felipe for TOV
f/u blood cultures
Repeat blood cultures so far negative
ECHO unrevealing: EF 55-60%. No obvious vegetation noted, however, the study is technically very difficult.
Off Zosyn, cont Vanc
ID on board
# ITZ, 2/2 to pre-renal etiology vs septic ATN, improving
SCr was at 7.4 on admission, today at 1.7
remove Felipe for TOV
Check Kidney US
Cont IVF (D5W)
Monitor BMP
# Acute on chronic metabolic encephalopathy from sepsis
# Advanced dementia with behavioral disturbance
MS worsened with severe sepsis, now awake and appear to be at/near baseline
Pt is non-verbal at baseline
Pueed diet per SPL eval
# Anemia, most likely dilution vs sepsis
monitor for bleeding, no evidence thus far
Monitor Hgb
# Hypernatremia
Change d5 half NS to D5W alone at 60 cc/hr
# Failure to thrive/history of dysphagia
# Hypotension from dehydration, resolved
# History of hypertension
D5W as above
Hold antihypertensives
# Type 2 diabetes
Insulin sliding scale
# History of CVA
# Cerebral aneurysm
# Hyperlipidemia
Full code
DVT prophylaxis�heparin SQ
DW RN
Anticipated Discharge: 24 - 48 hours
Subjective/Interval History
-
Date of Service: July 06, 2023
Objective Data
-
Labs:
Laboratory Results
07/06/23
05:09
WBC 8.3
Hgb 10.1 L
Hct 33.0 L
Plt Count 135
Sodium 148 H
Potassium 3.6
Chloride 116 H
Carbon Dioxide 28
BUN 62 H
Creatinine 1.7 H
Glucose 132 H
Calcium 8.5
Vital Signs:
Vital Signs
Temp Pulse Resp BP Pulse Ox
37.0 C 86 18 141/85 94
07/06/23 07:45 07/06/23 07:45 07/06/23 07:45 07/06/23 07:45 07/06/23 07:45
I&O
07/05/23 07/06/23 07/07/23
06:59 06:59 06:59
Intake Total 1775 / 1775 600 / 600
Output Total 1125 / 1125 1250 / 1250
Balance 650 / 650 -650 / -650
Review of Systems
-
Unable to obtain full review of systems at this time due to: Dementia
Physical Exam
-
General: Well Developed, Well Nourished, Comfortable, Appears Chronically Ill and Cachectic
HEENT: Normocephalic and Atraumatic
Respiratory: Clear to Auscultation and Non Labored Respirations; Negative Accessory Resp Muscle Use
Cardiac: Regular Rhythm and S1/S2
GI: Soft, Nontender, Nondistended and Normal Bowel Sounds
Genito-urinary: Felipe
Musculoskeletal: No Clubbing, No Cyanosis, No Edema and Other (contracted)
Skin: Warm
Neuro: Awake and Other (non-verbal)
Psych: Calm and Apparent Dementia
Data Reviewed
-
Labs: Labs Reviewed by me
--- NOTE | 2023-07-06 13:12 | W.PN.ID1 ---
Date of Service
Date of Service: July 06, 2023
Today's Communication
Continue Vancomycin for now.
Assessment / Plan
# Diphtheroid bacteruria from iglesias catheter
# Bacteremia - suspect contaminants
1 set of bcx GPC cluster, not Staph species/Enterococcus/Strep
2nd set of blood cx gram positive bacilli
?diphtheroid from urine (usually considered contaminant)
Repeat blood cx's neg to date (on Zosyn, before Vanco.)
Continue empiric IV Vancomycin pending identification of organism
# ITZ on CKD improving
Adjust abx dosing as needed
# Severe cachexia/protein-calorie malnutrition
# Dysphagia
#Additional Past Medical History:
Advanced dementia with behavioral disturbance
HTN
DM2
HLD
CVA
protein-calorie malnutrition
depression/anxiety
bipolar
CKD
osteoarthritis
hx cerebral aneurysm clipping, intracranial shunt
Chief Complaint
-: Bacteremia
Vital Signs / Physical Exam
Vital Signs
Vital Signs
Temp Pulse Resp BP Pulse Ox
98.6 F 86 18 141/85 94
07/06/23 07:45 07/06/23 07:45 07/06/23 07:45 07/06/23 07:45 07/06/23 07:45
Physical Exam
Constitutional: Chronically Ill and Cachetic
Pulmonary: Other (poor respiratory effort)
Gastrointestinal: Soft, Non Tender and Non Distended
Objective Data
Lab Data
Lab Results
07/06/23 05:09
07/06/23 05:09
Estimated Creat Clear 16 ml/min 07/06/23 05:09
Lactic Acid 1.8 mmol/L (0.7-2.0) 07/03/23 10:16
Total Bilirubin 0.7 mg/dl (0.2-1.3) 07/03/23 10:16
AST 44 U/L (14-36) H 07/03/23 10:16
ALT 25 U/L (0-35) 07/03/23 10:16
Alkaline Phosphatase 91 U/L (38-126) 07/03/23 10:16
Most recent labs reviewed.
Micro Results:
07/04/23 10:38 Blood Culture - Preliminary
Blood/Venous No Growth in 48 hours- Final report to follow
07/05/23 10:08 Blood Culture - Preliminary
Blood/Venous No Growth in 24 hours- Final report to follow
07/03/23 10:16 Blood Culture - Preliminary
Blood/Venous Positive culture in progress
Gram Stain - Final
07/03/23 09:28 Urine Culture - Final
Urine Diptheroids
07/03/23 10:16 Blood Culture - Preliminary
Blood/Venous Positive culture in progress
Gram Stain - Final
07/03/23 20:08 MRSA Screen - Final
Nose No Methicillin Resistant Staphylococcus aureus isolated.
[2023-07-06] MEDS: D5W 1000 IV (13:20)
--- NOTE | 2023-07-06 14:04 | PN.CDI ---
CDI
- -
CDI:
Physician Documentation Request
Admit Date: 07/03/23 12:33
Dear Doctor Yogesh,
Please review the following and provide your response in the progress notes.
Clinical Indicators:
- 4/2 PN 'Failure to thrive/history of dysphagia'
- 4/ Fire Safety Director note indicates severe protein calorie malnutrition
- Loss of fat over rib cage
- Loss of muscle over temporal, clavicle, quads, calf
- Less than or equal to 75% estimated energy intake for greater than or equal to 1 month
Based on the information above and ASPEN criterial, which of the following most accurately represents the patient's nutritional status?
Severe protein calorie malnutrition
Other
[place] Criteria ([facility] Hospitalist 2017)
2 or more criteria must be present for either
non severe or severe malnutrition
Note that the criteria differs related to the
presence of an acute or chronic illness
Acute Illness Chronic Illness
Energy Intake Non Severe: <75% for >7 days Non Severe: <75% for >1 month
Severe: <50% for >5 days Severe: <75% for >1 month
Weight Loss Non Severe: 1-2% over 1 week Non Severe: 5% over 1 month
5% over 1 month 7.5% over 3 months
7.5% over 3 months 10% over 6 months
1 year N/A 20% over 1 year
Severe: >2% over 1 week Severe: >5% over 1 month
>5% over 1 month >7.5% over 3 months
>7.5% over 3 months >10% over 6 months
1 year N/A >20% over 1 year
Body Fat Non Severe: Mild Decrease Non Severe: Mild Loss
Severe: Moderate Decrease Severe: Severe Loss
Muscle Mass Non Severe: Mild Decrease Non Severe: Mild Loss
Severe: Moderate Decrease Severe: Severe Loss
Fluid Accumulation Non Severe: Mild Accumulation Non Severe: Mild Accumulation
Severe: Moderate to severe Severe: Moderate to severe
accumulation accumulation
Reduced Water Safety Instructor Strength Non Severe: N/A Non Severe: N/A
Severe: Measurably reduced Severe: Measurably reduced
Additional criteria that can be used to Determine if Mild or Moderate Malnutrition ([employer]ck Manual 2018)
Mild Moderate Severe
Albumin gm/dl <3.0 gm/dl <2.5 gm/dl <2.0 gm/dl
Pre Albumin mg/dl <15 gm/dl <10 mg/dl <5.0 mg/dl
BMI <18.5 <17 <16
Use of terms such as suspected, likely, concern for, or probable (associated with a specific diagnosis that is being evaluated, monitored, or treated as if it exists) are acceptable and can be coded in the inpatient setting, when documented at the
time of discharge.
Thank you,
Berenice Gatica RN
CDI Specialist
Please use your independent medical judgment in providing your response.
--- NOTE | 2023-07-06 14:10 | PN.CDI ---
CDI
- -
CDI:
Physician Documentation Request
Admit Date: 07/03/23 12:33
Dear Doctor Yogesh,
Please review the following and provide your response in the progress notes.
Clinical Indicators:
- 07/02 RN skin assessment indicates stage 2 left ischium pressure injury, POA
Physician documentation of the type and location of wounds is required for compliant documentation. Based on the above clinical findings and your assessment, please provide the following in your progress note:
1. Location of the ulcer/wound, including laterality.
2. Type (etiology) of ulcer/wound:
- Diabetic ulcer
- Arterial (ischemic) ulcer
- Traumatic wound
- Venous stasis ulcer
- Pressure (decubitus) ulcer
- Non-healing surgical wound
- Other
- Unable to determine
3. For a non-pressure ulcer, please indicate the depth/severity:
- Limited to the breakdown of skin
- With fat layer exposed
- With necrosis of muscle
- With necrosis of bone
- Other
- Unable to determine
4. If a pressure ulcer, please also include the stage* of the ulcer:
- Stage 1 - Skin intact, non-blanchable redness
- Stage 2 - Partial thickness loss of dermis, includes intact or open blister
- Stage 3 - Full thickness tissue not including bone, tendon or muscle
- Stage 4 - Full thickness tissue loss, including exposed bone, tendon or muscle
- Unstageable - Full thickness loss in which the base of the ulcer is covered by slough (yellow, quiros, inman, green or brown) and/or eschar (quiros, brown or black) in the wound bed.
- Unable to determine
Use of terms such as suspected, likely, concern for, or probable (associated with a specific diagnosis that is being evaluated, monitored, or treated as if it exists) are acceptable and can be coded in the inpatient setting, when documented at the
time of discharge.
Thank you,
Berenice Gatica RN
CDI Specialist
Please use your independent medical judgment in providing your response.
*Source: National Pressure Ulcer Advisory Panel (NPUAP)
[2023-07-06 15:43] VITALS: BP 110/66
[2023-07-06 17:05] LABS: Glucose - Point of Care 152 mg/dl (70-99)
[2023-07-06] MEDS: NOVOLOG FLEXPEN-LOW RESISTANCE 1 UNITS SC (17:18)
[2023-07-06 21:26] LABS: Glucose - Point of Care 86 mg/dl (70-99)
[2023-07-06 23:09] VITALS: BP 138/57
[2023-07-07] MEDS: NOVOLOG FLEXPEN-LOW RESISTANCE SC (00:04)
--- NOTE | 2023-07-07 01:57 | PTCARENOTE ---
Patient DTV at 2330; no urinary incontinence observed from patient at this time. Pt. bladder scanned for 59 mls of urine. VSS. Pt. resting comfortably. Will continue to monitor.
[2023-07-07 04:37] LABS: Hemoglobin 9.9 g/dL (12.0-16.0); Mean Corp Hgb Conc. 30.9 g/dL (33.0-37.0); Mean Corpuscular Hgb 26.5 pg (27.0-31.0); Mean Corpuscular Volume 85.8 fL (81.0-99.0); Mean Platelet Volume 10.6 fL (7.4-10.4); Platelet Count 120 10^3/uL (130-400); Red Blood Cell Count 3.73 10^6/uL (4.20-5.40); Red Cell Dist. Width 15.7 % (11.5-14.5); White Blood Cell Count 7.9 10^3/uL (4.8-10.8)
[2023-07-07 05:21] LABS: Vancomycin Random 12.7 ug/ml
[2023-07-07 05:31] LABS: Blood Urea Nitrogen 40 mg/dl (7-17); Calcium 8.6 mg/dl (8.4-10.2); Carbon Dioxide 29 mmol/L (22-30); Chloride 110 mmol/L (98-107); Estimated Creatinine Clearance 23 ml/min; Glucose 101 mg/dl (70-99); Potassium 3.4 mmol/L (3.5-5.1); Sodium 144 mmol/L (135-145); eGFR 45.48
[2023-07-07] MEDS: D5W 1000 IV (05:43)
--- NOTE | 2023-07-07 07:48 | PN.CDI ---
CDI
- -
CDI:
Physician Documentation Request
Admit Date: 07/03/23 12:33
Dear Doctor Yogesh,
Please review the following and provide your response in the progress notes.
Clinical Indicators:
Documentation in the record on 07/05 Progress note includes the diagnosis of severe sepsis.
- Progress notes 'severe sepsis POA with Bacteremia...Diphtheroid UTI'
- On 07/02 admission: HR 90-100's - WBC, Temp, RR within normal limits
- Lactic acid level 1.8
- IVF given
- IV abx Cefepime, Vancomycin, Zosyn given
Please clarify based on the above information and the recognized standard SIRS criteria, if sepsis is still an accurate diagnosis, and reflective of the patient�s condition, to ensure quality of the medical record.
Sepsis is/was POA and is a clinical diagnosis based on (please include this additional support in the medical record)
After careful study sepsis has been ruled out
Other
Recognized standard criteria for this condition and other associated definitions:
�Bacteremia
-Abnormal laboratory test does not indicate a clinically ill patient
�Sepsis
-Systemic manifestations of infection, with 2 or more SIRS criteria which include:
-Fever > 100.4��F or hypothermia < 96.8��F
-Leukocytosis WBC > 12,000 or leukopenia, WBC < 4,000, or > 10% bands
-Tachycardia- > 90 beats/minute
-Tachypnea- RR > 20 breaths/minute or PaCO2 < 32mmHg
Source: Merck Manual 2013
-Documentation should include the known or suspected organism, and the underlying infection, such as UTI or pneumonia
�Severe Sepsis
-Sepsis with associated acute organ dysfunction, such as renal or respiratory failure
-Documentation should indicate the association between the sepsis and the organ dysfunction
�Septic Shock
-Severe sepsis with associated with circulatory failure, evidenced by hypotension and hypoperfusion
Use of terms such as suspected, likely, concern for, or probable (associated with a specific diagnosis that is being evaluated, monitored, or treated as if it exists) are acceptable and can be coded in the inpatient setting, when documented at the
time of discharge.
Thank you,
Berenice Gatica RN
CDI Specialist
Please use your independent medical judgment in providing your response.
--- NOTE | 2023-07-07 08:00 | PN.CDI ---
CDI
- -
CDI:
Physician Documentation Request
Admit Date: 07/03/23 12:33
Dear Doctor Yogesh,
Please review the following and provide your response in the progress notes.
Clinical Indicators:
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
- 'IV access is increasingly difficult due to upper ext contractures'
-Patient requiring complete care for all hygiene, feeding, activities
- BMI 13.8
Please provide further specificity as noted below:
Functional Quadriplegia (complete immobility due to severe physical disability or frailty)
Contractures only
Other
Use of terms such as suspected, likely, concern for, or probable (associated with a specific diagnosis that is being evaluated, monitored, or treated as if it exists) are acceptable and can be coded in the inpatient setting, when documented at the
time of discharge.
Thank you,
Berenice Gatica RN
CDI Specialist
Please use your independent medical judgment in providing your response.
--- NOTE | 2023-07-07 08:23 | PHA.VAN.FU ---
Vancomycin Assessment / Plan
- Assessment
Renal Function: SCR Decreasing
WBC's are: WNL
In the past 24 hrs, patient has been: Afebrile
- Assessment - Therapeutic Drug Monitoring
Random Level: 12.7 - drawn ~17H after previous dose of 500mg
- Dosing Plan
Dosing by Level: Re-dose today (Vanc 750mg)
- Monitoring Plan
Random Level: 07/07 06
- Follow Up
Pharmacy will continue to follow.
Vancomycin Follow UP
- -
Patient Age: 82
Patient Sex: Female
Vancomycin Day #: 3
Indication: Bacteremia
Requesting Provider: Dr. Simeon
Pertinent Antimicrobial Allergies:
NKDA
Height / Weight:
Height 5 ft 6 in
Actual Weight 38.9 kg
IBW in k.3
Pertinent Past Medical History: BMI ~13.8, DM2, CKD
- Vital Signs / Lab Results
Temp Pulse Resp BP Pulse Ox
98.6 F 101 16 138/57 94
07/06/23 23:09 07/06/23 23:09 07/06/23 23:09 07/06/23 23:09 07/06/23 23:09
Lab Results - Hematology
07/04/23 07/05/23 07/06/23
06:51 06:36 05:09
WBC 8.5 8.0 8.3
07/07/23
04:32
WBC 7.9
Lab Results - Chemistry
07/05/23 07/06/23 07/07/23
06:36 05:09 04:32
BUN 97 H 62 H 40 H
Creatinine 2.4 H 1.7 H 1.2 H
Estimated Creat Clear 11 16 23
Microbiology Results
07/03/23 10:16 Blood Culture - Preliminary
Blood/Venous Positive culture in progress
Gram Stain - Final
07/03/23 10:16 Blood Culture - Preliminary
Blood/Venous Positive culture in progress
Gram Stain - Final
07/04/23 10:38 Blood Culture - Preliminary
Blood/Venous No Growth in 48 hours- Final report to follow
07/05/23 10:08 Blood Culture - Preliminary
Blood/Venous No Growth in 24 hours- Final report to follow
07/03/23 09:28 Urine Culture - Final
Urine Diptheroids
07/03/23 20:08 MRSA Screen - Final
Nose No Methicillin Resistant Staphylococcus aureus isolated.
Therapeutic Drug Monitoring
Random Vancomycin 12.7 ug/ml 07/07/23 04:32
[2023-07-07 08:30] VITALS: BP 129/78
[2023-07-07 09:16] LABS: Glucose - Point of Care 122 mg/dl (70-99)
[2023-07-07] MEDS: HEPARIN 5000 UNITS SC (09:16)
--- NOTE | 2023-07-07 10:11 | CM ---
people manager reviewed patient's chart and spoke with patient's son Brett, patient's son is requesting that case loader operator look into alternative options for skilled placement, case loader operator explained that this maybe difficult as patient would need a
level 2 if not completed in the past (case loader operator will need to locate old level 2 form). people manager would need to locate paperwork, patient does not have skilled needs. people manager reviewed with Agatha, Director at [facility]. Message left for
patient's son, Brett.
Plan; Patient to return to [facility] in [place].
[2023-07-07 11:29] LABS: Glucose - Point of Care 120 mg/dl (70-99)
[2023-07-07] MEDS: VANCOCIN 150 IV (11:32)
--- NOTE | 2023-07-07 13:09 | W.PN.HOSP.TC ---
Today's Communication/Plan
-
see A/P
Assessment / Plan
Assessment / Plan
A/P:
# severe sepsis POA with Aerococcus Bacteremia
# Diphtheroid UTI
removed Iglesias for TOV, pt is incontinent, no need to cont iglesias
repeat blood cultures are negative
ECHO unrevealing: EF 55-60%. No obvious vegetation noted, however, the study is technically very difficult.
Off Zosyn, cont Vanc
ID on board
# ITZ, 2/2 to pre-renal etiology vs septic ATN, improving
SCr was at 7.4 on admission, today at 1.2
remove Iglesias for TOV
Kidney US Limited visualization of the left kidney. No evidence for pelvicalyceal dilation bilaterally.
Observe off IVF
Monitor BMP
# Acute on chronic metabolic encephalopathy from sepsis
# Advanced dementia with behavioral disturbance
MS worsened with severe sepsis, now awake and appear to be at/near baseline
Pt is non-verbal at baseline
Pueed diet per SPL eval
# Anemia, most likely dilution vs sepsis
monitor for bleeding, no evidence thus far
Monitor Hgb
# Hypernatremia, resolved following D5W
observe off IVF
# Failure to thrive/history of dysphagia
# Hypotension from dehydration, resolved
# History of hypertension
Hold antihypertensives
# Type 2 diabetes
Insulin sliding scale
# History of CVA
# Cerebral aneurysm
# Hyperlipidemia
# hypokalemia
replete
Full code
DVT prophylaxis�heparin SQ
DW RN
DW CM
Anticipated Discharge: Within 24 hours
Subjective/Interval History
-
Date of Service: July 07, 2023
Objective Data
-
Labs:
Laboratory Results
07/07/23
04:32
WBC 7.9
Hgb 9.9 L
Hct 32.0 L
Plt Count 120 L
Sodium 144
Potassium 3.4 L
Chloride 110 H
Carbon Dioxide 29
BUN 40 H
Creatinine 1.2 H
Glucose 101 H
Calcium 8.6
Vital Signs:
Vital Signs
Temp Pulse Resp BP Pulse Ox
36.9 C 80 16 129/78 97
07/07/23 08:30 07/07/23 08:30 07/07/23 08:30 07/07/23 08:30 07/07/23 08:30
I&O
07/06/23 07/07/23 07/08/23
06:59 06:59 06:59
Intake Total 600 / 600 720 / 720
Output Total 1250 / 1250
Balance -650 / -650 720 / 720
Review of Systems
-
Unable to obtain full review of systems at this time due to: Dementia and Patient Non-verbal
Physical Exam
-
General: Well Developed, Comfortable, Appears Chronically Ill and Cachectic
HEENT: Normocephalic and Atraumatic
Respiratory: Clear to Auscultation and Non Labored Respirations; Negative Accessory Resp Muscle Use
Cardiac: Regular Rhythm and S1/S2
GI: Soft, Nontender, Nondistended and Normal Bowel Sounds
Musculoskeletal: No Clubbing, No Cyanosis, No Edema and Other (contracted)
Skin: Warm
Neuro: Awake and Other (non-verbal)
Psych: Calm and Apparent Dementia
Data Reviewed
-
Labs: Labs Reviewed by me
[2023-07-07] MEDS: KCL 270 MEQ IV (13:32)
--- NOTE | 2023-07-07 15:01 | W.PN.ID1 ---
Date of Service
Date of Service: July 07, 2023
Today's Communication
Blood cx's were contaminants.
DC Vancomycin and observe.
ID will sign off. Call prn.
Assessment / Plan
# Bacteremia - contaminants
1 set of bcx Aerococcus urinae
2nd set of blood cx gram positive bacilli, unable to identify
Repeat blood cx's neg to date (on Zosyn, before Vanco.)
DC Vancomycin.
# Diphtheroid bacteruria from iglesias catheter
Contaminant
# ITZ on CKD resolving
# Severe cachexia/protein-calorie malnutrition
# Dysphagia
ID signing off.
#Additional Past Medical History:
Advanced dementia with behavioral disturbance
HTN
DM2
HLD
CVA
protein-calorie malnutrition
depression/anxiety
bipolar
CKD
osteoarthritis
hx cerebral aneurysm clipping, intracranial shunt
Chief Complaint
-: Bacteremia
Vital Signs / Physical Exam
Vital Signs
Vital Signs
Temp Pulse Resp BP Pulse Ox
98.4 F 80 16 129/78 97
07/07/23 08:30 07/07/23 08:30 07/07/23 08:30 07/07/23 08:30 07/07/23 08:30
Physical Exam
Constitutional: Chronically Ill and Cachetic
Cardiovascular: Regular Rate and S1/S2
Gastrointestinal: Soft, Non Tender and Non Distended
Genito-Urinary: Negative CVA Tenderness
Objective Data
Lab Data
Lab Results
07/07/23 04:32
07/07/23 04:32
Estimated Creat Clear 23 ml/min 07/07/23 04:32
Lactic Acid 1.8 mmol/L (0.7-2.0) 07/03/23 10:16
Total Bilirubin 0.7 mg/dl (0.2-1.3) 07/03/23 10:16
AST 44 U/L (14-36) H 07/03/23 10:16
ALT 25 U/L (0-35) 07/03/23 10:16
Alkaline Phosphatase 91 U/L (38-126) 07/03/23 10:16
Most recent labs reviewed.
Micro Results:
07/04/23 10:38 Blood Culture - Preliminary
Blood/Venous No Growth in 72 hours- Final report to follow
07/05/23 10:08 Blood Culture - Preliminary
Blood/Venous No Growth in 48 hours- Final report to follow
07/03/23 10:16 Blood Culture - Final
Blood/Venous Aerococcus Urinae
Gram Stain - Final
07/03/23 10:16 Blood Culture - Final
Blood/Venous Gram Stain - Final
07/03/23 09:28 Urine Culture - Final
Urine Diptheroids
07/03/23 20:08 MRSA Screen - Final
Nose No Methicillin Resistant Staphylococcus aureus isolated.
[2023-07-07 15:32] VITALS: BP 156/77
[2023-07-07 16:38] LABS: Glucose - Point of Care 99 mg/dl (70-99)
[2023-07-07] MEDS: HEPARIN SC (20:31)
[2023-07-07 23:13] LABS: Glucose - Point of Care 112 mg/dl (70-99)
[2023-07-07 23:56] VITALS: BP 123/66
[2023-07-08 00:02] VITALS: BP 120/86
--- NOTE | 2023-07-08 05:29 | VATNOTE ---
PT REFUSED TO ALLOW ME TO DRAW ORDERED AM LABS VIA HER PICC. PT SCREAMING AND PHYSICALLY PUSHING ME AWAY. UNABLE TO EXPLAIN TO PT OR REDIRECT PT TOWARD MORE COOPERATIVE BEHAVIOR. PCN AWARE.
--- NOTE | 2023-07-08 07:05 | PTCARENOTE ---
Pt combative with care. Refused Heparin injection and 0600 blood work. Initially refused vital signs and AccuCheck, but reconsidered after many explanations of the benefits. Description of Pt's temperament passed off in report -- will continue to
monitor.
[2023-07-08 07:30] VITALS: BP 131/85
[2023-07-08] MEDS: HEPARIN 5000 UNITS SC (07:48)
[2023-07-08 08:51] LABS: Glucose - Point of Care 84 mg/dl (70-99)
--- NOTE | 2023-07-08 09:16 | PTOTSP ---
ST Follow-Up
Pt presents with moderate oral dysphagia and slight pharyngeal dysphagia 2/2 edentulous oral cavity and acute but resolving encephalopathy.
Recommendations:
- Upgrade diet to MINCED AND MOIST solids with regular thin liquids; meds in puree.
- Continue general aspiration precautions.
- PRODUCT ENGINEER to continue to follow.
[2023-07-08 11:02] LABS: Hematocrit 33.2 % (37.0-47.0); Hemoglobin 10.3 g/dL (12.0-16.0); Mean Corpuscular Hgb 26.1 pg (27.0-31.0); Mean Corpuscular Volume 84.3 fL (81.0-99.0); Mean Platelet Volume 10.4 fL (7.4-10.4); Platelet Count 142 10^3/uL (130-400); Red Blood Cell Count 3.94 10^6/uL (4.20-5.40); Red Cell Dist. Width 15.5 % (11.5-14.5); White Blood Cell Count 8.5 10^3/uL (4.8-10.8)
[2023-07-08 11:58] LABS: Blood Urea Nitrogen 20 mg/dl (7-17); Calcium 8.5 mg/dl (8.4-10.2); Carbon Dioxide 29 mmol/L (22-30); Chloride 107 mmol/L (98-107); Estimated Creatinine Clearance 27 ml/min; Glucose 105 mg/dl (70-99); Magnesium 1.4 mg/dl (1.6-2.3); Potassium 3.6 mmol/L (3.5-5.1); Sodium 140 mmol/L (135-145)
[2023-07-08 12:06] LABS: Glucose - Point of Care 100 mg/dl (70-99)
--- NOTE | 2023-07-08 12:35 | W.PN.HOSP.TC ---
Addendum entered and electronically signed by Madelyn Zuñiga MD 07/08/23 16:22:
# Sepsis was ruled out.
# Functional Quadriplegia
Addendum entered and electronically signed by Madelyn Zuñiga MD 07/08/23 16:19:
total DC time 35 min
Original Note:
Today's Communication/Plan
-
see A/P
Assessment / Plan
Assessment / Plan
A/P:
# Aerococcus Bacteremia, felt to be contaminant per ID
# Diphtheroid bacteruria from iglesias catheter, also felt to be contaminant
Iglesias removed, pt is incontinent, no need to cont iglesias
repeat blood cultures are negative
ECHO unrevealing: EF 55-60%. No obvious vegetation noted, however, the study is technically very difficult.
Was on Zosyn- now off, then on Vanc and now off too
ID signed off
# ITZ, 2/2 to pre-renal etiology vs septic ATN, resolved
SCr was at 7.4 on admission, today at 1.0
removed Iglesias for TOV
Kidney US Limited visualization of the left kidney. No evidence for pelvicalyceal dilation bilaterally.
Off IVF
Monitor BMP
# Hypokalemia and hypomagnesemia
replete lytes IV
# Acute on chronic metabolic encephalopathy from sepsis
# Advanced dementia with behavioral disturbance
MS worsened with severe sepsis, now awake and appear to be at/near baseline
Pt is non-verbal at baseline
Diet has been advanced to mince/moist per SPL, cont going forward
# Anemia, most likely dilutional
monitor for bleeding, no evidence thus far
Monitor Hgb
# Hypernatremia, resolved following D5W
observe off IVF
# Failure to thrive/history of dysphagia
# Hypotension from dehydration, resolved
# History of hypertension
Hold antihypertensives
# Type 2 diabetes
Insulin sliding scale
# History of CVA
# Cerebral aneurysm
# Hyperlipidemia
# hypokalemia
replete
Full code
DVT prophylaxis�heparin SQ
DW RN
Called son several times, the number does not work.
left voicemail to Silvia
Anticipated Discharge: Today
Subjective/Interval History
-
Date of Service: July 08, 2023
Objective Data
-
Labs:
Laboratory Results
07/08/23
10:49
WBC 8.5
Hgb 10.3 L
Hct 33.2 L
Plt Count 142
Sodium 140
Potassium 3.6
Chloride 107
Carbon Dioxide 29
BUN 20 H
Creatinine 1.0
Glucose 105 H
Calcium 8.5
Vital Signs:
Vital Signs
Temp Pulse Resp BP Pulse Ox
36.6 C 100 20 131/85 99
07/08/23 07:30 07/08/23 07:30 07/08/23 07:30 07/08/23 07:30 07/08/23 07:30
I&O
07/07/23 07/08/23 07/09/23
06:59 06:59 06:59
Intake Total 720 / 720 1180 / 1180
Balance 720 / 720 1180 / 1180
Review of Systems
-
Unable to obtain full review of systems at this time due to: Dementia and Patient Non-verbal
Physical Exam
-
General: Well Developed, Comfortable, Appears Chronically Ill and Cachectic
HEENT: Normocephalic and Atraumatic
Respiratory: Clear to Auscultation and Non Labored Respirations; Negative Accessory Resp Muscle Use
Cardiac: Regular Rhythm and S1/S2
GI: Soft, Nontender, Nondistended and Normal Bowel Sounds
Musculoskeletal: No Clubbing, No Cyanosis, No Edema and Other (contracted)
Skin: Warm
Neuro: Awake and Other (non-verbal)
Psych: Calm and Apparent Dementia
Data Reviewed
-
Labs: Labs Reviewed by me
[2023-07-08] MEDS: KCL 270 MEQ IV (14:02)
[2023-07-08] MEDS: MAGNESIUM SULFATE 50 IV (14:02)
--- NOTE | 2023-07-08 14:44 | CM ---
deputy program manager reviewed patient's chart and per admissions at [facility] patient owes $21,000 to [facility] for care and they will not consider any other options in their facility or sister facilities until bill has been paid, patient to return to
[facility] in [place], son Brett made aware.
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
[facility]
Report [phone]
--- NOTE | 2023-07-08 15:50 | W.DCSUMMARY ---
Discharge Summary
Discharge Data
Date of Admission: 07/03/23
Date of Discharge: 07/08/23
-
Pending Results: No
Hospital Course
Principal Diagnosis:
Change in mental status/increased confusion likely due to dehydration
Aerococcus Bacteremia, felt to be contaminant
Diphtheroid bacteruria from iglesias catheter (removed), also felt to be contaminant
Acute kidney injury due to dehydration, resolved
Hypernatremia due to dehydration, resolved following D5W
Hypotension from dehydration, resolved
Anemia, most likely dilutional from IV fluid
Hypokalemia and hypomagnesemia
Chronic Diagnoses:�
Failure to thrive/history of dysphagia
History of hypertension, discontinued all antihypertensives this admission
Type 2 diabetes
History of stroke with advanced dementia with behavioral disturbance
Cerebral aneurysm
Hyperlipidemia
Nonverbal and bedbound at baseline
Consultations:�
Infectious disease
Procedures:�
None
Clinical course:�
This is an 82-year-old female, with medical problems as stated above, of note she is nonverbal and bedbound state at baseline, who was brought in from the care home due to increased confusion.
Problem 1:
Change in mental status/increased confusion due to severe dehydration.
This was associated with severe ITZ and hypernatremia.
She received IV fluid to treat her dehydration.
Her acute kidney injury resolved (serum creatinine down trended from 7.4 on admission to 1.0).
A Iglesias catheter was placed on admission which was subsequently removed. She is incontinent, and this does not warrant Iglesias catheter placement.
Her kidney ultrasound although limited did not show any evidence of pelvicalyceal dilation bilaterally.
She was also noted to have hypokalemia and hypomagnesemia, and electrolytes were repleted IV while she was in the hospital.
She can continue with mince/moist diet and thin liquid per speech evaluation.
Problem 2:
Aerococcus bacteremia, felt to be contaminant per ID.
Diphtheroid bacteruria from iglesias catheter, also felt to be contaminant per ID.
Her repeat blood cultures were negative.
Her echo was unrevealing: EF 55-60%. No obvious vegetation noted, however, the study is technically very difficult.
She was treated with Zosyn and then Vancomycin. Antibiotic was then discontinued per ID.
As for the rest of her medical problems, they were stable during her hospital stay.
Discharge Plan
-
Patient Disposition: Skilled Nursing/SNF
Discharge Diagnosis/Procedures: Aerococcus Bacteremia (felt to be contaminant) and Diphtheroid bacteruria from iglesias catheter (also felt to be contaminant); resolved acute kidney injury likely from dehydration
Condition: Fair
Diet: Other diet
Additional Diets: mince and moist diet, will need supervised feeding for all meals
Driving Restrictions: No driving
Blood Work: BMP and Mag levels, results to PCP
Activity Restrictions/Additional Instructions:
Your blood pressure has been stable without any medications
Referrals:
James Mathews, DO [Family Provider] - in less than 1 week
Additional Discharge Medication Instructions: stop all blood pressure medications (Norvasc, HCTZ, lisinopril, losartan, Toprol).
You mood has been stable, discontinue mirtazapine.
Also stop trazodone.
Prescriptions:
Continued
famotidine 20 MG tablet
20 mg PO DAILY
acetaminophen 325 MG tablet
650 mg PO Q6HPRN PRN (Reason: mild pain, temp>101)
aspirin 81 MG tablet,delayed release (DR/EC)
81 mg PO DAILY
bisacodyl [OneLAX Bisacodyl] 10 MG suppository
10 mg TN DAILY PRN (Reason: if mom ineffective)
simvastatin 20 MG tablet
20 mg PO HS
sorbitol 30 ML solution
30 ml PO [id number] PRN (Reason: if no bm x 3 days)
lamotrigine 100 MG tablet
100 mg PO BID
Lorazepam Gel 1mg/Ml
0.5 mg topical Q4HPRN PRN (Reason: anxiety)
magnesium oxide [MagOx] 400 MG tablet
400 mg PO BID
haloperidol 2 mg Tablet
2 mg PO BID Qty: 10 0RF
Fleet Enema 19-7 gram/118 mL Enema
118 ml TN DAILY PRN (Reason: if suppository is ineffective)
Discontinued
losartan 50 MG tablet
50 mg PO DAILY
trazodone 100 MG tablet
100 mg PO HS
amlodipine 5 MG tablet
5 mg PO DAILY
hyoscyamine sulfate 0.125 mg Tablet, Sublingual
0.125 mg SUBLINGUAL Q4H PRN (Reason: excess secretions)
metoprolol succinate 100 mg Tablet Extended Release 24 Hr
50 mg PO BID
sorbitol 70 % Solution
30 ml PO DAILY
lisinopril 5 mg Tablet
5 mg PO DAILY
hydrochlorothiazide 25 mg Tablet
25 mg PO DAILY
mirtazapine 15 mg Tablet
15 mg PO HS
Discharge Orders:
Discharge Patient (As Directed); Ordered 07/08/23
Ordered By: Madelyn Zuñiga
Discharge Date and Time
Print Language: HEBREW
[2023-07-08 16:22] VITALS: BP 130/75
[2023-07-08 16:49] LABS: Glucose - Point of Care 141 mg/dl (70-99)
[2023-07-08 19:20] VITALS: BP 154/78
== END 2023-07-08 20:25 | DRG 682 ==
LOC: 4 WEST ACU 12:33
PROVIDERS: Registered Nurse; ADMITTING PHYSICIAN Internal Medicine; ATTENDING PHYSICIAN Internal Medicine; CONSULT PHYSICIAN Internal Medicine Infectious Disease; EMERGENCY PHYSICIAN Emergency Medicine; FAMILY PHYSICIAN Internal Medicine
DX: N17.9 Acute kidney failure, unspecified (principal); E43 Unspecified severe protein-calorie malnutrition; G93.41 Metabolic encephalopathy; R53.2 Functional quadriplegia; N39.0 Urinary tract infection, site not specified; F02.818 Dementia in other diseases classified elsewhere, unspecified severity, with other behavioral disturbance; F02.84 Dementia in other diseases classified elsewhere, unspecified severity, with anxiety; F02.83 Dementia in other diseases classified elsewhere, unspecified severity, with mood disturbance; F02.82 Dementia in other diseases classified elsewhere, unspecified severity, with psychotic disturbance; E87.0 Hyperosmolality and hypernatremia; R64 Cachexia; Z68.1 Body mass index [BMI] 19.9 or less, adult; R62.7 Adult failure to thrive; R13.10 Dysphagia, unspecified; E86.0 Dehydration; I95.9 Hypotension, unspecified; N18.9 Chronic kidney disease, unspecified; E11.22 Type 2 diabetes mellitus with diabetic chronic kidney disease; I67.1 Cerebral aneurysm, nonruptured; D64.9 Anemia, unspecified; E78.00 Pure hypercholesterolemia, unspecified; E87.6 Hypokalemia; E83.42 Hypomagnesemia; I12.9 Hypertensive chronic kidney disease with stage 1 through stage 4 chronic kidney disease, or unspecified chronic kidney disease; Z74.01 Bed confinement status; L89.322 Pressure ulcer of left buttock, stage 2
CPT/HCPCS: 36556; 51701; 51702; 76775; 80048; 80053; 80202; 81003; 81015; 82962; 83036; 83605; 83735; 85025; 85027; 87040; 87070; 87086; 87149; 87205; 92526; 92610; 93005; 93306; 96361; 96374; 99291

== ENCOUNTER 2023-08-03 08:30 | Inpatient (IN) | payer MEDICARE, OTHER, SELFPAY ==
[2023-07-31] VITALS (7 sets, daily range): BP systolic 105–152; BP diastolic 61–88; BMI 14.3; BMI 13.3
[2023-07-31 17:47] LABS: Glucose - Point of Care 63 mg/dl (70-99)
--- NOTE | 2023-07-31 18:15 | EDRN ---
the pts capillary blood glucose - 63. ER Dr Valdez was notified of above. this INFORMATICS SPECIALIST was given a verbal order to administered 12.5gm Dextrose IVP NOW for low blood glucose. see EMAR
[2023-07-31] MEDS: DEXTROSE 50% SYRINGE 12.5 GRAMS IV (18:16)
[2023-07-31 18:19] LABS: % Basophils 0.6 % (0-2); % Eosinophils 1.5 % (0-6); % Immature Granulocytes 0.3 % (0-0.5); % Lymphocytes 19.4 % (20.5-51.1); % Monocytes 7.7 % (1.7-9.3); % Neutrophils 70.5 % (42.2-75.2); Absolute Basophils 0.1 10^3/uL (0-0.2); Absolute Eosinophils 0.1 10^3/uL (0-0.7); Absolute Lymphocytes 1.5 10^3/uL (1.2-3.4); Absolute Monocytes 0.6 10^3/uL (0.1-0.6); Absolute Neutrophils 5.6 10^3/uL (1.4-6.5); Hematocrit 35.5 % (37.0-47.0); Hemoglobin 11.4 g/dL (12.0-16.0); Mean Corp Hgb Conc. 32.1 g/dL (33.0-37.0); Mean Corpuscular Volume 84.1 fL (81.0-99.0); Mean Platelet Volume 9.6 fL (7.4-10.4); Nucleated Red Blood Cells % 0 %; Platelet Count 323 10^3/uL (130-400); Red Blood Cell Count 4.22 10^6/uL (4.20-5.40); Red Cell Dist. Width 15.1 % (11.5-14.5); White Blood Cell Count 7.9 10^3/uL (4.8-10.8)
[2023-07-31 18:41] LABS: ALT (SGPT) < 10 U/L (0-35); AST (SGOT) 21 U/L (14-36); Albumin 3.2 g/dl (3.5-5.0); Alkaline Phosphatase 78 U/L (38-126); Blood Urea Nitrogen 24 mg/dl (7-17); Calcium 9.8 mg/dl (8.4-10.2); Carbon Dioxide 27 mmol/L (22-30); Chloride 92 mmol/L (98-107); Estimated Creatinine Clearance 33 ml/min; Glucose 64 mg/dl (70-99); Potassium 3.9 mmol/L (3.5-5.1); Sodium 131 mmol/L (135-145); Total Bilirubin 1.3 mg/dl (0.2-1.3); Total Protein 6.5 g/dl (6.3-8.2); eGFR > 60.00
[2023-07-31 19:09] LABS: Glucose - Point of Care 130 mg/dl (70-99)
--- NOTE | 2023-07-31 20:18 | ED.GENMED ---
History of Present Illness
General
Chief Complaint: Weakness
Time Seen by Provider: 07/31/23 18:18
Travel History
Have you had any contact with someone who has COVID-19?: Unable to Answer
Do you have any symptoms of coronavirus? Fever > 100 degrees, chills, cough, shortness of breath, sore throat, loss of taste or smell, muscle aches, or headache?: Unable to Answer
History of Present Illness
History of Present Illness:
82-year-old female with past medical history of dementia, hypertension, hyperlipidemia, GERD, chronic dysphagia, diabetes who presents to the emergency department from [facility] for evaluation of failure to thrive. Patient is not able
to provide any meaningful history due to her dementia. Discussed directly with care home staff for collateral history�patient apparently has had chronic issues with poor p.o. intake over the past few weeks she has stopped eating and drinking
almost entirely�initially they were able to get her to drink Ensure shakes but recently she has not even been taking these by mouth. As a result they have been giving her IV fluids�initially last week was on D5 half-normal saline this was stopped
due to low sodium and she was transition to D5 W infusion to help provide hydration and glucose. Son had expressed interest in PEG tube and apparently patient has evaluation with gastroenterology scheduled for August. [facility] sent her in because
they are having difficulty with IV access to even provide fluids given her poor hydration status and she is having worsening cachexia and essentially zero p.o. intake, not taking her medications.
Past History
Past History
ED Past Medical History: GERD, HTN, Hypercholesterolemia, NIDDM, Psychiatric (Hallucination, dementia with behavioral disturbance) and Other (Cerebral aneurysm, Dementia, generalized muscle weakness/impaired mobility, malnutrition)
ED Past Surgical History: None
Social History
Tobacco: Non-smoker
Alcohol: None
Drug: None
Personal: Single
Living: care home ([place])
Employment: Not employed
Family History
Family History: Unable to obtain
Review of Systems
Review of Systems
Unable to obtain full review of systems at this time due to: dementia
Other source history: care home
All Other Systems: Not applicable
Phy Exam
Physical Exam
Physical Exam:
General: Laying in bed awake but minimally verbal; she appears chronically ill and quite cachectic
Head: Normocephalic, atraumatic
Eyes: Conjunctiva normal
Throat: Airway intact, dry mucous membranes
Neck: Trachea midline
Lungs: Clear to auscultation bilaterally, no wheezing, rales, rhonchi
Heart: Regular rate and rhythm, no murmurs, gallops, or rubs
Abd: Soft, non distended
Neuro: Contracted and minimally verbal, not consistently following commands�apparently this is her recent baseline
Skin: Patient has shallow-based pressure sore right heel with no signs of acute infection
Extremities: Contracted; distal extremities are warm and well-perfused
Scores
Heart Failure Risk
Heart Failure Risk Score: Not Applicable
Heart Score for Chest Pain Patients
STEMI patient?: Not applicable
Withdrawal Assessment of Alcohol
Withdrawal Assessment Completed?: Not applicable
Course
Orders/Labs/Results
Orders:
Orders
07/31/23 18:06
CMP [Comprehensive Metabolic Panel] Urgent
Complete Blood Count/With Diff Urgent
07/31/23 18:13
Dextrose 50%-Water [Dextrose 50% Syringe] 25 grams .ROUTE .[facility]
07/31/23 18:15
Dextrose 50%-Water [Dextrose 50% Syringe] 12.5 grams IV NOW STA
07/31/23 18:20
CT Head W/o Iv Contrast Urgent
Comment:
Reason For Exam: change in mentation
Urinalysis Reflex To Culture Urgent
CR Chest Portable - 1 View Urgent
Comment:
Reason For Exam: confusion
Reason Study Needs to be Portable: Unable to Transport
07/31/23 20:14
Magnesium Urgent
Phos [Phosphorus] Urgent
Abnormal Lab Results
07/31/23 07/31/23 07/31/23
17:41 18:06 19:07
Hgb 11.4 L g/dL
(12.0-16.0)
Hct 35.5 L %
(37.0-47.0)
MCHC 32.1 L g/dL
(33.0-37.0)
RDW 15.1 H %
(11.5-14.5)
Lymphocytes % 19.4 L %
(20.5-51.1)
Sodium 131 L mmol/L
(135-145)
Chloride 92 L mmol/L
(98-107)
BUN 24 H mg/dl
(7-17)
Glucose 64 L mg/dl
(70-99)
Albumin 3.2 L g/dl
(3.5-5.0)
POC Glucose 63 L mg/dl 130 H mg/dl
(70-99) (70-99)
07/31/23 18:06
07/31/23 18:06
Vital Signs
Initial and Last Documented VS:
Initial Vital Signs
Pulse Resp BP Pulse Ox
93 18 136/70 97
07/31/23 17:48 07/31/23 17:48 07/31/23 17:48 07/31/23 17:48
Last Documented Vital Signs
Temp Pulse Resp BP Pulse Ox
37.2 C 92 17 137/73 100
07/31/23 17:56 07/31/23 18:42 07/31/23 18:42 07/31/23 18:42 07/31/23 18:42
MDM/Problems Addressed
Differential Diagnosis Includes:
Progression of dementia, infection, nutritional deficiency/electrolyte drink
MDM/Problems Addressed:
82-year-old female presents with failure to thrive, worsening p.o. intake as described above. Vital signs are normal here. Exam as above. Her Accu-Chek was significant for hypoglycemia on arrival at 63. We placed an IV gave her one half amp of
D50. This sounds like an unfortunate progression of patient's chronic dementia with very poor p.o. intake and malnutrition. Son is apparently interested in proceeding with discussion about possible PEG placement. Will plan to send basic labs,
send basic infectious workup. Check CT head. Will provide infusion of dextrose containing fluids. Reassess after the above.
Labs reviewed: CBC and CMP essentially unremarkable. Her CT head is negative. Infectious workup thus far negative. Will plan to admit for continued IV hydration and GI consultation with consideration for feeding tube. Discussed with hospitalist
for admission.
Chronic conditions affecting care:
Dementia
*Radiology
Radiology exam reviewed: radiology read reviewed
*Pulse Oximetry
Patient hypoxic: no
*Critical Care Note
Total Time (30-74mins, 75-104mins- exclusive of procedures): Not Applicable
Data Reviewed
Review of Other/Old Records Reveals: Labs, Records and Discharge Summary
Source: records and care home
Patient Management
Discussion with other providers: Hospitalist (Discussed with hospitalist)
Escalation/DeEscalation of care consider admission/obs:
Admission indicated
ED Attending Note
-
Portions of this chart may have been created with voice recognition software.� Occasional wrong word or��sound alike� substitutions may have occurred due to the inherent limitations of voice recognition software.
Discharge Plan
Departure
Patient Disposition: Admit
Date of Disposition: 07/31/23
Time of Disposition: 20:28
Admit to doctor: Gilberto
Presentation/result/management discussed w/ accepting MD/DO: Hospitalist
Discharge Problem:
Adult failure to thrive, Severe protein-calorie malnutrition
Prescriptions:
No Action
famotidine 20 MG tablet
20 mg PO DAILY
acetaminophen 325 MG tablet
650 mg PO Q6HPRN PRN (Reason: mild pain, temp>101)
aspirin 81 MG tablet,delayed release (DR/EC)
81 mg PO DAILY
bisacodyl [OneLAX Bisacodyl] 10 MG suppository
10 mg NV DAILY PRN (Reason: if mom ineffective)
simvastatin 20 MG tablet
20 mg PO HS
sorbitol 30 ML solution
30 ml PO [id number] PRN (Reason: if no bm x 3 days)
lamotrigine 100 MG tablet
100 mg PO BID
Lorazepam Gel 1mg/Ml
0.5 mg topical Q4HPRN PRN (Reason: anxiety)
magnesium oxide [MagOx] 400 MG tablet
400 mg PO BID
haloperidol 2 mg Tablet
2 mg PO BID Qty: 10 0RF
Fleet Enema 19-7 gram/118 mL Enema
118 ml NV DAILY PRN (Reason: if suppository is ineffective)
Referrals:
James Mathews, DO [Family Provider] -
Interventions
Interventions:
*Risk Screen - Suicide Last Done: 07/31/23 18:11
*General Assessment Last Done: 07/31/23 18:11
*Neglect/Abuse Screening Last Done: 07/31/23 18:11
ED- Cardiac Assessment Last Done: 07/31/23 18:00
ED- Neurological Assessment Last Done: 07/31/23 18:00
ED- Pulmonary Assessment Last Done: 07/31/23 18:00
Discharge Date and Time
Print Language: SERBIAN
--- NOTE | 2023-07-31 20:56 | EDRN ---
Right Heal
Right heal
[2023-07-31 21:06] LABS: Magnesium 1.7 mg/dl (1.6-2.3); Phosphorus 3.9 mg/dl (2.5-4.5)
--- NOTE | 2023-07-31 21:10 | HPS.HSE ---
Family Physician
-
Family Physician: James Mathews, DO
Chief Complaint
-
not taking orals/dehydration
History of Present Illness
The patient is an 82 year old woman with PMH significant for dementia, hypertension, hyperlipidemia, GERD, chronic dysphagia, diabetes who presents to the ED from [facility] as she is not taking orals and they cannot obtain IV access for IVF at
OR. She has chronic poor oral intake and FTT, with decreased/poor oral intake for the past several weeks and has mostly stopped eating and drinking. Son had planned for PEG tube placement with GI in August per notes.
No other known positive ROS, patient unable to answer questions. Unable to reach son at this time from the ED.
Medical History
Past Medical History
Past Medical History: Reports Other
Additional Past Medical History:
Hypertension
Major depressive disorder
Alzheimer's
Left hip osteoarthritis
Hyperlipidemia
Type 2 diabetes
Bipolar
GERD
Chronic kidney disease
Past Surgical History: Reports Other
Additional Past Surgical History:
Surgery for brain aneurysm
Social History
Tobacco: Non-smoker
Alcohol: None
Drug: None
Personal: Single
Living: Retirement
Family History
Family History: Not pertinent
Allergies / Home Medications
Allergies reflects when Allergies were last updated in [employer].
Home Medications with original date entered in [employer]
Allergy/Medication List:
Allergies
Allergy/AdvReac Type Severity Reaction Status Date / Time
ADULT DIAPER Allergy Unknown Uncoded 07/31/23 17:47
Home Medications
famotidine 20 mg tablet 20 mg PO DAILY Gastrointestinal issue 08/10/19
acetaminophen 325 mg tablet 650 mg PO Q6HPRN PRN mild pain, temp>101 12/24/20
aspirin 81 mg tablet,delayed release 81 mg PO DAILY Stroke 12/24/20
bisacodyl 10 mg rectal suppository (OneLAX Bisacodyl) 10 mg MI DAILY PRN if mom ineffective 12/24/20
lamotrigine 100 mg tablet 100 mg PO BID Mental Health/Anxiety 12/24/20
simvastatin 20 mg tablet 20 mg PO HS High cholesterol 12/24/20
sorbitol 70 % solution 30 ml PO [id number] PRN if no bm x 3 days 12/24/20
Lorazepam Gel 1mg/Ml 0.5 mg topical Q4HPRN PRN anxiety 08/26/22
magnesium oxide 400 mg (241.3 mg magnesium) tablet (MagOx) 400 mg PO BID Supplement 08/26/22
haloperidol 2 mg tablet 2 mg PO BID Mental Health/Anxiety #10 tabs 08/29/22
sodium phosphates 19 gram-7 gram/118 mL enema (Fleet Enema) 118 ml MI DAILY PRN if suppository is ineffective 06/07/23
clonidine HCl 0.1 mg tablet 0.1 mg PO PRN PRN BP >160 07/31/23
dextrose 40 % oral gel (Glucose Gel) 15 g PO Q15M PRN glucose <60 07/31/23
dextrose 5 % in water (D5W) 480 ml IV .EVERYSHIFT 07/31/23
glucagon HCl 1 mg solution for injection (Glucagon (HCl) Emergency Kit) 1 mg SC Q20M PRN if blood sugar <60 07/31/23
mirtazapine 7.5 mg tablet 7.5 mg PO HS 07/31/23
Review of Systems
-
Unable to obtain full review of systems at this time due to: Dementia
Physical Exam
Vital Signs
Vital Signs
Temp Pulse Resp BP Pulse Ox
99.0 F 101 19 105/80 98
07/31/23 17:56 07/31/23 20:45 07/31/23 20:45 07/31/23 20:00 07/31/23 19:30
Physical Exam
General: Cachectic
HEENT: Other (dry mucous membranes)
Respiratory: Clear
Cardiac: S1/S2 and Regular Rhythm
GI: Soft, Non Tender, Non Distended and Normal Bowel Sounds
Musculoskeletal: No Clubbing, No Cyanosis, No Edema and Other (contracted extremities)
Skin: Warm and Dry
Neuro: Awake and Nonfocal/grossly intact
Psych: Calm
Laboratory Results
-
07/31/23 18:06
07/31/23 18:06
Laboratory Results
Total Bilirubin 1.3 mg/dl (0.2-1.3) 07/31/23 18:06
AST 21 U/L (14-36) 07/31/23 18:06
ALT < 10 U/L (0-35) 07/31/23 18:06
Alkaline Phosphatase 78 U/L (38-126) 07/31/23 18:06
Impression/Plan
-
IMPRESSION:
#Patient is not taking orals at OR
#Volume depletion, dehydration
#Failure to thrive/history of dysphagia
#History of hypertension, discontinued all antihypertensives prior admission
#Type 2 diabetes
#History of stroke with advanced dementia with behavioral disturbance
#Cerebral aneurysm
#Hyperlipidemia
#Nonverbal and bedbound at baseline
PLAN:
Admit for IV hydration
Unable to reach patient's son from ED
Discuss with GI re: possible PEG tube placement depending on discussion and wishes of the patient's son / power of trademark attorney versus hospice care, to discuss in am
DVT proph- PCDs
Full Code
--- NOTE | 2023-07-31 21:50 | EDRN ---
Checked patients brief, it is dry, pillow placed under patients left side to position her onto her right side, warm blanket applied, call khan in reach.
--- NOTE | 2023-07-31 22:30 | PTCARENOTE ---
Received Patient from ED. Patient not oriented, FTT, dehydrated. Patient was transferred directly to the bed from the stretcher. Patient non-verbal, withdrawn, lungs decreased, heart rate regular, no edema, positive pulses. Admitted with healed
wounds on sacrum and left hip. Preventative silicone boarder foams placed. Open wound on right heel redressed. VSS. Bed alarm placed for patient safety.
[2023-07-31] MEDS: D5/0.9% SODIUM CHLORIDE 1000 IV (22:54)
[2023-07-31] MEDS: REMERON 7.5 MG PO (22:55)
[2023-08-01 07:40] VITALS: BP 187/108
[2023-08-01 09:13] VITALS: BP 177/72
[2023-08-01 09:53] LABS: Blood Urea Nitrogen 18 mg/dl (7-17); Carbon Dioxide 33 mmol/L (22-30); Chloride 100 mmol/L (98-107); Estimated Creatinine Clearance 41 ml/min; Glucose 143 mg/dl (70-99); Magnesium 1.5 mg/dl (1.6-2.3); Potassium 3.2 mmol/L (3.5-5.1); Sodium 134 mmol/L (135-145); eGFR > 60.00
--- NOTE | 2023-08-01 11:12 | W.PN.HOSP.TC ---
Addendum entered and electronically signed by Mor Herzog MD 08/01/23 14:13:
Spoke with daughter in law. Told them that patient is currently unable to swallow on her own. Per daughter patient used to have a feeding tube which was taken out since she started eating about a year or 2 ago. Family is coming later to the
hospital and would like to speak with gastroenterology. If there is no plans for further feeding tube then hospice might be appropriate. I did discuss this with patient's [id number] who was understanding and will speak to patient's son.
Addendum entered and electronically signed by Mor Herzog MD 08/01/23 13:47:
Tried contacting family, left voicemail
Addendum entered and electronically signed by Mor Herzog MD 08/01/23 13:32:
check UA; pending. straight cath if needed
Original Note:
Today's Communication/Plan
-
Monitor vital signs see plan
GI to evaluate
Continue with fluids
Speech evaluation
Replete electrolytes, IVF
Assessment / Plan
Assessment / Plan
General: Cachectic
HEENT: Other (dry mucous membranes)
Respiratory: Clear
Cardiac: S1/S2 and Regular Rhythm
GI: Soft, Non Tender, Non Distended and Normal Bowel Sounds
Musculoskeletal: No Clubbing, No Cyanosis, No Edema and Other (contracted extremities)
Skin: Warm and Dry
Neuro: Awake and Nonfocal/grossly intact
Psych: Calm
Failure to thrive
Currently n.p.o. other than meds
Speech evaluation
History of dysphagia
GI consulted, evaluation for PEG
cw IVF currently
Hypomagnesemia
Repleted
Hypokalemia
Replete
History of hypertension
Hydralazine as needed
Type 2 diabetes mellitus
History of stroke with advanced dementia with behavioral disturbances
Cerebral aneurysm exam
Hyperlipidemia
Functional quadriplegia
DVTppx
lovenox
Full code
Anticipated Discharge: 24 - 48 hours
Subjective/Interval History
-
Date of Service: August 01, 2023
opens her eyes at times
Objective Data
-
Labs:
Laboratory Results
08/01/23
09:31
Sodium 134 L
Potassium 3.2 L
Chloride 100
Carbon Dioxide 33 H
BUN 18 H
Creatinine 0.6
Glucose 143 H
Calcium 9.0
Vital Signs:
Vital Signs
Temp Pulse Resp BP Pulse Ox
98.3 F 82 14 177/72 100
08/01/23 07:40 08/01/23 09:13 08/01/23 07:40 08/01/23 09:13 08/01/23 07:40
I&O
07/31/23 08/01/23 08/02/23
06:59 06:59 06:59
Intake Total 600 / 600
Balance 600 / 600
[2023-08-01] MEDS: KCL 1022 GRAMS IV (12:10)
[2023-08-01] MEDS: KCL 1022 MEQ IV (12:10)
--- NOTE | 2023-08-01 13:58 | CM ---
Message left for son. Awaiting return call. Patient is LTC resident at [facility]. She requires total care. Has recently not been eating or drinking and SNF was unable to gain IV access. Records report that son made arrangements for Peg placement
in August. History of bipolar disorder. Discharge Plan of Care: Return to [facility]. OBS status needs to be explained to son when returns call.
--- NOTE | 2023-08-01 15:25 | CON.GI ---
Consultation
-
Date/Time Consultation Requested: 07/31/2023
Date/Time Consultation Performed: 08/01/2023
Requesting Provider: Dr. Herzog
Performing Provider: Dr. Gardner
Reason for Consultation: PEG tube placement
Medical History
Chief Complaint / HPI
Chief Complaint: Failure to thrive
History of Present Illness:
82-year-old female with past medical history of dementia, hypertension, hyperlipidemia, GERD, chronic dysphagia, diabetes who presents to the emergency department from [facility] for evaluation of failure to thrive. Patient is not able
to provide any meaningful history due to her dementia. As per son, poor oral intake in the last 1 month with significant weight loss. Cannot quantify. As per history�patient apparently has had chronic issues with poor p.o. intake over the past
few weeks she has stopped eating and drinking almost entirely�initially they were able to get her to drink Ensure shakes but recently she has not even been taking these by mouth.
Abdominal pain, nausea, vomiting, regurgitation. Son noted overnight if she had any constipation, diarrhea or bleeding.
In the ER, mild hyponatremia noted.
She was admitted to the hospital in 2019 for failure to thrive, weakness and decreased appetite, at that time she had sepsis requiring pressors, she did have eventual PEG tube placement in 2019 which as per son was removed after a couple of months
and she started eating regular diet but since her dentures with taken off for unclear reason, she has been on softer food
Past Medical History
Past Medical History: HTN, NIDDM and Other (History of dementia, cerebral aneurysm)
Social History
Tobacco: Non-Smoker
Alcohol: None
Family History
Family History: Unable to Obtain
Allergies / Home Medications
Allergy/AdvReac Type Severity Reaction Status Date / Time
ADULT DIAPER Allergy Unknown Uncoded 07/31/23 17:47
�Medication �Instructions �Recorded
famotidine 20 mg tablet 20 mg PO DAILY Gastrointestinal 08/10/19
issue
acetaminophen 325 mg tablet 650 mg PO Q6HPRN PRN mild pain, 12/24/20
temp>101
aspirin 81 mg tablet,delayed 81 mg PO DAILY Stroke 12/24/20
release
bisacodyl 10 mg rectal suppository 10 mg OK DAILY PRN if mom 12/24/20
(OneLAX Bisacodyl) ineffective
lamotrigine 100 mg tablet 100 mg PO BID Mental Health/Anxiety 12/24/20
simvastatin 20 mg tablet 20 mg PO HS High cholesterol 12/24/20
sorbitol 70 % solution 30 ml PO [id number] PRN if no bm x 3 12/24/20
days
Lorazepam Gel 1mg/Ml 0.5 mg topical Q4HPRN PRN anxiety 08/26/22
magnesium oxide 400 mg (241.3 mg 400 mg PO BID Supplement 08/26/22
magnesium) tablet (MagOx)
haloperidol 2 mg tablet 2 mg PO BID Mental Health/Anxiety 08/29/22
#10 tabs
sodium phosphates 19 gram-7 118 ml OK DAILY PRN if suppository 06/07/23
gram/118 mL enema (Fleet Enema) is ineffective
clonidine HCl 0.1 mg tablet 0.1 mg PO PRN PRN BP >160 07/31/23
dextrose 40 % oral gel (Glucose 15 g PO Q15M PRN glucose <60 07/31/23
Gel)
dextrose 5 % in water (D5W) 480 ml IV .EVERYSHIFT 07/31/23
glucagon HCl 1 mg solution for 1 mg SC Q20M PRN if blood sugar <60 07/31/23
injection (Glucagon (HCl)
Emergency Kit)
mirtazapine 7.5 mg tablet 7.5 mg PO HS Depression 07/31/23
Review of Systems
-
All other systems: Unreviewed
Vital Signs
Temp Pulse Resp BP Pulse Ox
98.3 F 82 14 177/72 100
08/01/23 07:40 08/01/23 09:13 04/28/24 07:40 08/01/23 09:13 08/01/23 08:00
Physical Exam
Exam
GI: Soft, Non Tender, Non Distended, Normal Bowel Sounds and Other (Scar in the left upper quadrant from previous PEG- clean)
Results
WBC 7.9 10^3/uL (4.8-10.8) 07/31/23 18:06
Hgb 11.4 g/dL (12.0-16.0) L 07/31/23 18:06
Hct 35.5 % (37.0-47.0) L 07/31/23 18:06
MCV 84.1 fL (81.0-99.0) 07/31/23 18:06
Plt Count 323 10^3/uL (130-400) 07/31/23 18:06
Absolute Neuts (auto) 5.6 10^3/uL (1.4-6.5) 07/31/23 18:06
Sodium 134 mmol/L (135-145) L 08/01/23 09:31
Potassium 3.2 mmol/L (3.5-5.1) L 08/01/23 09:31
Chloride 100 mmol/L (98-107) 08/01/23 09:31
Carbon Dioxide 33 mmol/L (22-30) H 08/01/23 09:31
BUN 18 mg/dl (7-17) H 08/01/23 09:31
Creatinine 0.6 mg/dL (0.6-1.0) 08/01/23 09:31
Calcium 9.0 mg/dl (8.4-10.2) 08/01/23 09:31
Total Bilirubin 1.3 mg/dl (0.2-1.3) 07/31/23 18:06
AST 21 U/L (14-36) 07/31/23 18:06
ALT < 10 U/L (0-35) 07/31/23 18:06
Alkaline Phosphatase 78 U/L (38-126) 07/31/23 18:06
Diagnostic Image Results:
Prior GI Procedures:
EGD:
Colonoscopy:
Assessment / Plan
-
Pt is a 82yo with dementia, hypertension, hyperlipidemia, GERD, chronic dysphagia, diabetes who presents to the emergency department from [facility] for evaluation of failure to thrive.
-PEG tube placement in 2019 status post removal subsequently
-failure to thrive with decrease PO intakes
-dementia
-hyponatremia
-anemia
-h/o covid infection 2019
other
-NIDDM
-HTN
PLAN:
Pt with poor oral intake
Reviewed with patient's son who is the power of defense attorney, he is agreeable for PEG tube placement and consent obtained.
Will monitor electrolytes and replete as per hospitalist team.
Plan for PEG tube either tomorrow or Wednesday. Will need dietary for TF recommendations after peg placement
will follow
-
-
-
Thank you for consultation and allowing me to participate in the patient's care. Please call the electronics detail draftsperson GI physician during the after hours with any questions or concerns.
[2023-08-01 16:20] VITALS: BP 165/89
[2023-08-01] MEDS: LOVENOX 40 MG SC (17:46)
[2023-08-01 19:55] VITALS: BP 143/78
[2023-08-01] MEDS: REMERON PO (20:03)
[2023-08-01 23:33] VITALS: BP 152/74
[2023-08-02 00:40] LABS: Urine Albumin Negative (Neg - Trace); Urine Bilirubin Negative (Negative); Urine Character Clear (Clear); Urine Color Yellow; Urine Glucose Negative (Negative); Urine Ketone Negative (Negative); Urine Leukocyte 1+ (Negative); Urine Nitrite Negative (Negative); Urine Occult Blood Negative (Negative); Urine Specific Gravity 1.015 (<1.030); Urine Urobilinogen 1+ (Neg - 1+)
[2023-08-02 01:02] LABS: Urine Bacteria Many (Negative); Urine Red Blood Cell None Seen /HPF (0-2)
[2023-08-02] MEDS: KCL 1022 GRAMS IV ×2 (01:19→14:07)
[2023-08-02] MEDS: KCL 1022 MEQ IV ×2 (01:19→14:07)
[2023-08-02 06:00] VITALS: BMI 13.4
[2023-08-02 08:11] VITALS: BP 142/82
--- NOTE | 2023-08-02 08:20 | W.PN.GI.CBS2 ---
Today's Communication / Plan
-
PLAN:
Pt with poor oral intake. No change from 07/31
Await labs- Na/Magnesium
Reviewed with patient's son who is the power of assistant attorney general, he is agreeable for PEG tube placement and consent obtained.
Will monitor electrolytes and replete as per hospitalist team.
Plan for PEG tube Wednesday. Will need dietary for TF recommendations after peg placement
will follow
Assessment / Plan
-
Pt is a 82yo with dementia, hypertension, hyperlipidemia, GERD, chronic dysphagia, diabetes who presents to the emergency department from [facility] for evaluation of failure to thrive.
-PEG tube placement in 2019 status post removal subsequently
-failure to thrive with decrease PO intakes
-dementia
-hyponatremia
-anemia
-h/o covid infection 2019
other
-NIDDM
-HTN
PLAN:
Pt with poor oral intake. No change from 07/31
Await labs- Na/Magnesium
Reviewed with patient's son who is the power of assistant attorney general, he is agreeable for PEG tube placement and consent obtained.
Will monitor electrolytes and replete as per hospitalist team.
Plan for PEG tube Wednesday. Will need dietary for TF recommendations after peg placement
will follow
-
Subjective
Subjective
Date of Service: August 02, 2023
No events overnight. No fevers or chills
Objective
Data Reviewed
Laboratory Data:
Laboratory Results
Phosphorus Cancelled 07/31/23 20:14
Magnesium 1.5 mg/dl (1.6-2.3) L 08/01/23 09:31
Total Bilirubin 1.3 mg/dl (0.2-1.3) 07/31/23 18:06
AST 21 U/L (14-36) 07/31/23 18:06
ALT < 10 U/L (0-35) 07/31/23 18:06
Alkaline Phosphatase 78 U/L (38-126) 07/31/23 18:06
Vital Signs and I&O:
Vital Signs
Temp Pulse Resp BP Pulse Ox
97.6 F 88 16 142/82 98
08/02/23 08:11 08/02/23 08:11 08/02/23 08:11 08/02/23 08:11 08/02/23 08:11
I&O
08/01/23 08/02/23 08/03/23
06:59 06:59 06:59
Intake Total 600 / 600
Balance 600 / 600
Physical Exam
Physical Exam
GI: Soft, Non Distended, Non Tender and Normal Bowel Sounds
--- NOTE | 2023-08-02 11:11 | CM ---
Reviewed the chart notes and left voice message for patient's son regarding need to review observational status. CM continues to be available to patient/family and is monitoring medical plan for needs at discharge.
Plan: Discharge back to [facility] where the patient has been a resident since 10/2017. CM continues to be available to patient/family and is monitoring medical plan for needs at discharge.
--- NOTE | 2023-08-02 11:46 | WOUNDNOTE ---
L HIP AND BUTTOCK OVERVIEW
--- NOTE | 2023-08-02 11:46 | WOUNDNOTE ---
R BUTTOCK AND ISCHIUM SCARS
--- NOTE | 2023-08-02 11:47 | WOUNDNOTE ---
R LATERAL HEEL/FOOT
--- NOTE | 2023-08-02 11:48 | WOUNDNOTE ---
JAILYN RN note: Patient admitted with failure to thrive, severe protein-calorie malnutrition.
See H&P for complete history. From [place].
PMH: NIDDM, stroke, cerebral aneurysm, encephalopathy, HTN, bipolar, anxiety and depression, pressure injuries.
Wound Location and type/assessment: Patient known to service, admitted with old healing PI's. With assistance from nurse Macie turned patient onto sides, skin care given for saturated brief with urine. R buttock and Ischium with scars from old
healed PI's. L hip with healing stage 2 PI, small open area drainage scant. Old healed PI on ischium with scarring. R lateral heel with healing PI suspect was a stage 2 vs 3 PI, small drainage. L Heel is dry and scabs on legs.
Appetite: Poor, NPO for peg tube tomorrow reports nurse.
Pressure redistribution devices in place: On [facility] air bed, turned to L semi side lying position, pillow under calves. Called [facility] for Prevalon heel boots, asked nurse to apply when received.
Plan: Silicone foams re applied to R buttock/sacrum and L hip/L ischium. Adhesive foam to L heel. Adaptic and dry dressing applied to R lateral heel. Offloading heel boots to be applied.
Will confirm orders with hospitalist and updated nurse. Updated care plan and will sign off unless needed.
--- NOTE | 2023-08-02 12:15 | CM ---
Addendum entered by Tereza Witt RN 08/02/23 15:11:
CM left voice message on patient's son's phone regarding patient being admitted under observational status. CARLOS letter explained and a copy left with the patient.
Original Note:
Reviewed the chart notes and spoke with admissions liaison Juliana ([phone]) with [facility]. Patient is a snf resident and plan will be to return after peg tub placement which is scheduled for Wednesday. CM continues to be available to
patient/family and is monitoring medical plan for needs at discharge.
Plan: Discharge back to [facility] when medically stable with new peg tube placement.
--- NOTE | 2023-08-02 12:20 | PTOTSP ---
ST Acute Care Evaluation
Pt presents with severe oropharyngeal dysphagia characterized by significantly reduced acceptance of PO intake, reduced oral awareness/manipulation, prolonged posterior transport, delayed swallow initiations, and inconsistent swallow initiations.
Given pt's advanced dementia and inconsistent participation with PO intake, pt is at a HIGH risk for aspiration and subsequent PNA.
Recommendations:
- STRICT NPO; no ARHP given inconsistent swallow initiations with ice chip trials.
- No meds by mouth - IV or consider entec.
- Aspiration precautions: HOB fully upright as often as possible and oral care q2 hours; suction as needed.
- Consider goals of care - PEG tubes are NOT recommended in this population.
- [employer] will continue to follow closely.
[2023-08-02 12:29] LABS: % Basophils 0.8 % (0-2); % Eosinophils 2.5 % (0-6); % Immature Granulocytes 0.5 % (0-0.5); % Lymphocytes 27.3 % (20.5-51.1); % Monocytes 12.1 % (1.7-9.3); % Neutrophils 56.8 % (42.2-75.2); Absolute Basophils 0.1 10^3/uL (0-0.2); Absolute Eosinophils 0.2 10^3/uL (0-0.7); Absolute Lymphocytes 1.6 10^3/uL (1.2-3.4); Absolute Monocytes 0.7 10^3/uL (0.1-0.6); Absolute Neutrophils 3.4 10^3/uL (1.4-6.5); Hematocrit 31.4 % (37.0-47.0); Mean Corp Hgb Conc. 31.8 g/dL (33.0-37.0); Mean Corpuscular Hgb 26.5 pg (27.0-31.0); Mean Corpuscular Volume 83.1 fL (81.0-99.0); Mean Platelet Volume 9.1 fL (7.4-10.4); Nucleated Red Blood Cells % 0 %; Platelet Count 238 10^3/uL (130-400); Red Blood Cell Count 3.78 10^6/uL (4.20-5.40); Red Cell Dist. Width 14.9 % (11.5-14.5); White Blood Cell Count 5.9 10^3/uL (4.8-10.8)
[2023-08-02 12:55] LABS: Blood Urea Nitrogen 8 mg/dl (7-17); Calcium 8.6 mg/dl (8.4-10.2); Carbon Dioxide 24 mmol/L (22-30); Chloride 111 mmol/L (98-107); Estimated Creatinine Clearance 41 ml/min; Glucose 149 mg/dl (70-99); Potassium 4.8 mmol/L (3.5-5.1); Sodium 139 mmol/L (135-145); eGFR > 60.00
--- NOTE | 2023-08-02 13:29 | W.PN.HOSP.TC ---
Today's Communication/Plan
-
Await PEG tube
Assessment / Plan
Assessment / Plan
Gen-awake, alert, nonverbal, NAD
HEENT-NC, AT, anicteric, clear oral mm
Neck-supple
CV-reg, no M, +S1/S2
Lungs-clear B/L
Abd-soft, NT, ND
Ext-no edema
Musculoskeletal-no cyanosis, clubbing
Skin-warm and dry
Failure to thrive -due to advanced dementia, severe dysphagia.
Severe dysphagia -due to advanced dementia. Family has decided on PEG placement, to be done tomorrow as per GI. Otherwise she is appropriate for hospice. High risk for pulling out her feeding tube. High risk for aspiration.
Hyponatremia -resolved.
Hypomagnesemia -recheck levels in the morning.
Hypokalemia -resolved.
Essential hypertension
Hydralazine as needed
DM2 with hypoglycemia -glucose 149 this morning. Not on diabetes medications.
History of stroke with advanced dementia with behavioral disturbances
Cerebral aneurysm
Hyperlipidemia
Functional quadriplegia
DVTppx
lovenox
Full code
[facility]
Had a long discussion with patient's son Brett on the phone regarding risks involved with feeding tube placement including risk of aspiration, risk of her pulling it out, pain associated with it, etc. He still wants to move ahead with feeding tube
placement tomorrow. I also mentioned that she is a good candidate for hospice but currently he does not want to pursue hospice for his mother.
Anticipated Discharge: 24 - 48 hours
Subjective/Interval History
-
Date of Service: August 02, 2023
Patient seen and examined. Nonverbal. Looks comfortable.
Objective Data
-
Labs:
Laboratory Results
08/02/23 08/02/23
12:19 12:22
WBC 5.9
Hgb 10.0 L
Hct 31.4 L
Plt Count 238 D
Sodium 139
Potassium 4.8 D
Chloride 111 H
Carbon Dioxide 24
BUN 8
Creatinine 0.5 L
Glucose 149 H
Calcium 8.6
Vital Signs:
Vital Signs
Temp Pulse Resp BP Pulse Ox
97.6 F 88 16 142/82 98
08/02/23 08:11 08/02/23 08:11 08/02/23 08:11 08/02/23 08:11 08/02/23 08:11
I&O
08/01/23 08/02/23 08/03/23
06:59 06:59 06:59
Intake Total 600 / 600
Balance 600 / 600
Review of Systems
-
Unable to obtain full review of systems at this time due to: Dementia and Patient Non-verbal
[2023-08-02 15:02] VITALS: BMI 13.4
[2023-08-02 16:09] VITALS: BP 136/76
[2023-08-02] MEDS: LOVENOX 40 MG SC (18:30)
[2023-08-02] MEDS: REMERON PO (21:29)
[2023-08-02 23:33] VITALS: BP 156/81
[2023-08-03] VITALS (10 sets, daily range): BP systolic 144–179; BP diastolic 91–108; BMI 13.9
[2023-08-03] MEDS: D5/0.9% SODIUM CHLORIDE 1000 IV ×2 (05:09→10:02)
[2023-08-03 07:01] LABS: Blood Urea Nitrogen 4 mg/dl (7-17); Calcium 8.6 mg/dl (8.4-10.2); Carbon Dioxide 28 mmol/L (22-30); Chloride 108 mmol/L (98-107); Estimated Creatinine Clearance 43 ml/min; Glucose 94 mg/dl (70-99); Magnesium 2.1 mg/dl (1.6-2.3); Phosphorus 2.1 mg/dl (2.5-4.5); Potassium 4.9 mmol/L (3.5-5.1); Sodium 136 mmol/L (135-145); eGFR > 60.00
[2023-08-03] MEDS: ANCEF 10 IV (10:01)
--- NOTE | 2023-08-03 10:06 | CM ---
Reviewed the chart notes. Message left for the patient's son Brett regarding change to inpatient status and IMM. IMM placed on chart, copy left at bedside. CM continues to be available to patient/family and is monitoring medical plan for needs
at discharge.
Plan: Discharge back to [facility] when medically stable. Awaiting Peg tube placement.
--- NOTE | 2023-08-03 12:31 | W.PN.HOSP.TC ---
Today's Communication/Plan
-
Replete phosphate
PEG tube
Assessment / Plan
Assessment / Plan
Gen-awake, alert, nonverbal, NAD
HEENT-NC, AT, anicteric, clear oral mm
Neck-supple
CV-reg, no M, +S1/S2
Lungs-clear B/L
Abd-soft, NT, ND
Ext-no edema
Musculoskeletal-no cyanosis, clubbing
Skin-warm and dry
Failure to thrive -due to advanced dementia, severe dysphagia.
Severe dysphagia -due to advanced dementia. Family has decided on PEG placement, to be done today as per GI. Otherwise she is appropriate for hospice. High risk for pulling out her feeding tube. High risk for aspiration. High risk for refeeding
syndrome.
Hyponatremia -resolved.
Hypomagnesemia -resolved.
Hypokalemia -resolved.
Hypophosphatemia -will replete.
Essential hypertension
Hydralazine as needed
DM2 with hypoglycemia -glucose 94 this morning. Not on diabetes medications.
History of stroke with advanced dementia with behavioral disturbances
Cerebral aneurysm
Hyperlipidemia
Functional quadriplegia
DVTppx
lovenox
Full code
[facility]po -[facility] to [facility] when medically stable.
Had a long discussion with patient's son Brett on the phone regarding risks involved with feeding tube placement including risk of aspiration, risk of her pulling it out, pain associated with it, etc. He still wants to move ahead with feeding tube
placement tomorrow. I also mentioned that she is a good candidate for hospice but currently he does not want to pursue hospice for his mother.
Anticipated Discharge: Within 24 hours
Subjective/Interval History
-
Date of Service: August 03, 2023
Patient seen and examined. Nonverbal. Looks comfortable.
Objective Data
-
Labs:
Laboratory Results
08/03/23
05:48
Sodium 136
Potassium 4.9
Chloride 108 H
Carbon Dioxide 28
BUN 4 L
Creatinine 0.5 L
Glucose 94
Calcium 8.6
Vital Signs:
Vital Signs
Temp Pulse Resp BP Pulse Ox
97.9 F 84 18 179/95 100
08/03/23 08:29 08/03/23 08:29 08/03/23 08:29 08/03/23 08:29 08/03/23 08:29
I&O
08/02/23 08/03/23 08/04/23
06:59 06:59 06:59
Intake Total 1200 / 1200
Balance 1200 / 1200
Review of Systems
-
Unable to obtain full review of systems at this time due to: Dementia and Patient Non-verbal
--- NOTE | 2023-08-03 14:03 | W.IMMPOSTOP ---
Addendum entered and electronically signed by James Chester MD 08/03/23 14:09:
[facility]#[id number]
Original Note:
Surgical Immed Post Op Note
-
Primary Surgeon: Nemo
Assisting Surgeon: Brittany
Pre-op Diagnosis: Dysphagia, malnutrition
Post-op Diagnosis: Dysphagia, malnutrition
Procedure Performed: Percutaneous endoscopic gastrostomy tube (PEG)
Anesthesia Type: MAC local
Specimen / Cultures: None
Estimated Blood Loss: < 1 cc
Complications: None
Operative Findings:
1. EGD notable for small hiatal hernia and scarring from prior PEG tube, no significant gastritis or duodenitis
2. 20 Portuguese PEG tube inserted using standard pull technique, secured at 2.5 cm at the skin
3. Transillumination, one-to-one palpation, positive bubble study
--- NOTE | 2023-08-03 14:31 | PN.CDI ---
CDI
- -
CDI:
Physician Documentation Request
Admit Date: 08/03/23 08:30
Dear Doctor Gonzales,
Clinical Indicators:
Patient admitted with FTT and severe dysphagia; s/p PEG placement 08/02.
BMI 13.9
07/31 PN, 'cachectic'
08/01 note/assessment:'NFPE: moderate fat loss and severe muscle loss.'
'Per ASPEN/AND guidelines, pt meets for severe malnutrition in the context of chronic
illness as evidenced by <50% intake est needs x > 1 month, 8.2% weight loss x 1
month, severe muscle and moderate fat loss.'
Based on the information, which of the following most accurately represents the patient's nutritional status?
Severe Protein Calorie Malnutrition
Cachexia without malnutrition
Other (please specify)
[place] Criteria ([facility] Hospitalist 2017)
2 or more criteria must be present for either
non severe or severe malnutrition
Note that the criteria differs related to the
presence of an acute or chronic illness
Acute Illness Chronic Illness
Energy Intake Non Severe: <75% for >7 days Non Severe: <75% for >1 month
Severe: <50% for >5 days Severe: <75% for >1 month
Weight Loss Non Severe: 1-2% over 1 week Non Severe: 5% over 1 month
5% over 1 month 7.5% over 3 months
7.5% over 3 months 10% over 6 months
1 year N/A 20% over 1 year
Severe: >2% over 1 week Severe: >5% over 1 month
>5% over 1 month >7.5% over 3 months
>7.5% over 3 months >10% over 6 months
1 year N/A >20% over 1 year
Body Fat Non Severe: Mild Decrease Non Severe: Mild Loss
Severe: Moderate Decrease Severe: Severe Loss
Muscle Mass Non Severe: Mild Decrease Non Severe: Mild Loss
Severe: Moderate Decrease Severe: Severe Loss
Fluid Accumulation Non Severe: Mild Accumulation Non Severe: Mild Accumulation
Severe: Moderate to severe Severe: Moderate to severe
accumulation accumulation
Reduced Post Manager Strength Non Severe: N/A Non Severe: N/A
Severe: Measurably reduced Severe: Measurably reduced
Additional criteria that can be used to Determine if Mild or Moderate Malnutrition (Merck Manual 2018)
Mild Moderate Severe
Albumin gm/dl <3.0 gm/dl <2.5 gm/dl <2.0 gm/dl
Pre Albumin mg/dl <15 gm/dl <10 mg/dl <5.0 mg/dl
BMI <18.5 <17 <16
Use of terms such as suspected, likely, concern for, or probable (associated with a specific diagnosis that is being evaluated, monitored, or treated as if it exists) are acceptable and can be coded in the inpatient setting, when documented at the
time of discharge.
Thank you,
Samantha Villalobos RN BSN
CDI Specialist
available via tiger text
Please use your independent medical judgment in providing your response.
--- NOTE | 2023-08-03 14:40 | PN.CDI ---
CDI
- -
CDI:
Physician Documentation Request
Admit Date: 08/03/23 08:30
Dear Doctor Gonzales,
Clinical Indicators:
Patient admitted with FTT and severe dysphagia; PMH includes functional quadriplegia.
08/01 [facility] RN skin/wound assessment: Left Hip Stage 2 Pressure Injury, POA
Right Lateral Ankle Stage 2 Pressure Injury, POA
Physician documentation of the type and location of wounds is required for compliant documentation. Based on the above clinical findings and your assessment, please provide the following in your progress note:
1. Location of the ulcer/wound, including laterality.
2. Type (etiology) of ulcer/wound:
- Pressure (decubitus) ulcer
- Other, please specify
3. If a pressure ulcer, please also include the stage* of the ulcer:
- Stage 1 - Skin intact, non-blanchable redness
- Stage 2 - Partial thickness loss of dermis, includes intact or open blister
- Stage 3 - Full thickness tissue not including bone, tendon or muscle
- Stage 4 - Full thickness tissue loss, including exposed bone, tendon or muscle
- Unstageable - Full thickness loss in which the base of the ulcer is covered by slough (yellow, quiros, inman, green or brown) and/or eschar (quiros, brown or black) in the wound bed.
- Unable to determine
Use of terms such as suspected, likely, concern for, or probable (associated with a specific diagnosis that is being evaluated, monitored, or treated as if it exists) are acceptable and can be coded in the inpatient setting, when documented at the
time of discharge.
Thank you,
SUNDEEP Lara RN
CDI Specialist
available via tiger text
Please use your independent medical judgment in providing your response.
*Source: National Pressure Ulcer Advisory Panel (NPUAP)
[2023-08-03] MEDS: SODIUM PHOSPHATE 255 MEQ IV (14:54)
[2023-08-03] MEDS: LOVENOX 40 MG SC (17:39)
[2023-08-03] MEDS: HALDOL 2 MG TUBE (21:43)
[2023-08-03] MEDS: MAGNESIUM OXIDE 500 MG TUBE (21:43)
[2023-08-03] MEDS: REMERON 7.5 MG TUBE (21:43)
[2023-08-03] MEDS: LAMICTAL 100 MG TUBE (21:43)
[2023-08-03] MEDS: LIPITOR 10 MG TUBE (21:43)
[2023-08-03] MEDS: TYLENOL 650 MG TUBE (21:44)
[2023-08-03] MEDS: CATAPRES 0.100000000000000006 MG TUBE (23:22)
[2023-08-04 00:41] VITALS: BP 133/73
[2023-08-04 03:20] VITALS: BP 142/73
[2023-08-04] MEDS: D5/0.9% SODIUM CHLORIDE 1000 IV (05:36)
[2023-08-04 06:00] VITALS: BMI 13.6
--- NOTE | 2023-08-04 06:02 | W.PN.GI.CBS2 ---
Today's Communication / Plan
-
See assessment plan for details.
Assessment / Plan
-
1. Dysphagia: With failure to thrive, status post PEG tube without incident, PEG site appropriate this morning, bumper slightly loosened to 3 cm. Is okay to start tube feedings per nutrition recommendations. Continue local care as ordered. We
will sign off for now, please go back with any further questions.
Subjective
Subjective
Date of Service: August 04, 2023
No events overnight, afebrile.
Objective
Data Reviewed
Laboratory Data:
Laboratory Results
08/02/23 12:22
Laboratory Results
Phosphorus 2.1 mg/dl (2.5-4.5) L 08/03/23 05:48
Magnesium 2.1 mg/dl (1.6-2.3) 08/03/23 05:48
Total Bilirubin 1.3 mg/dl (0.2-1.3) 07/31/23 18:06
AST 21 U/L (14-36) 07/31/23 18:06
ALT < 10 U/L (0-35) 07/31/23 18:06
Alkaline Phosphatase 78 U/L (38-126) 07/31/23 18:06
Vital Signs and I&O:
Vital Signs
Temp Pulse Resp BP Pulse Ox
97.5 F 78 20 142/73 100
08/04/23 03:20 08/04/23 03:20 08/04/23 03:20 08/04/23 03:20 08/04/23 03:20
I&O
08/02/23 08/03/23 08/04/23
06:59 06:59 06:59
Intake Total 1200 / 1200 460 / 460
Balance 1200 / 1200 460 / 460
Physical Exam
Physical Exam
General: NAD
Abdomen: normal bowel sounds, soft, no tenderness, no masses or bruits, no ascites, binder in place, PEG site clean dry and intact, bumper slightly loosened to 3 cm.
[2023-08-04 07:35] VITALS: BP 153/74
[2023-08-04] MEDS: LOW STRENGTH ASPIRIN 81 MG TUBE (08:38)
[2023-08-04] MEDS: LAMICTAL 100 MG TUBE ×2 (08:38→21:51)
[2023-08-04] MEDS: MAGNESIUM OXIDE 500 MG TUBE ×2 (08:38→21:50)
[2023-08-04] MEDS: PEPCID 20 MG TUBE (08:38)
[2023-08-04] MEDS: POLYSPORIN/DOUBLE ANTIBIOTIC 1 APPLIC TOPICAL (08:39)
[2023-08-04] MEDS: HALDOL 2 MG TUBE ×2 (08:39→21:52)
--- NOTE | 2023-08-04 11:05 | W.PN.HOSP.TC ---
Addendum entered and electronically signed by Derek Rolon DO 08/04/23 11:18:
Left Hip Stage 2 Pressure Injury, POA
Right Lateral Ankle Stage 2 Pressure Injury, POA
Severe protein/calorie malnutrition of chronic illness
Original Note:
Today's Communication/Plan
-
Start tube feeds
Clonidine
Assessment / Plan
Assessment / Plan
Gen-awake, alert, nonverbal, NAD
HEENT-NC, AT, anicteric, clear oral mm
Neck-supple
CV-reg, no M, +S1/S2
Lungs-clear B/L
Abd-soft, NT, ND
Ext-no edema
Musculoskeletal-no cyanosis, clubbing
Skin-warm and dry
Failure to thrive -due to advanced dementia, severe dysphagia.
Severe dysphagia -due to advanced dementia. PEG tube placed on August 02. Start tube feeds today per nutrition recommendations. Watch for refeeding syndrome. Abdominal binder in place to prevent her from pulling the tube out.
Hyponatremia -resolved.
Hypomagnesemia -resolved.
Hypokalemia -resolved.
Hypophosphatemia -will replete.
Essential hypertension -appears patient was on as needed clonidine prior to admission. Labile blood pressures noted. Will change clonidine to standing doses.
DM2 with hypoglycemia - Not on diabetes medications.
History of stroke with advanced dementia with behavioral disturbances
Cerebral aneurysm
Hyperlipidemia
Functional quadriplegia
DVTppx
lovenox
Full code
Dispo -back to snf when medically stable, likely tomorrow. Left voicemail for patient's son Brett to call me back with any questions.
Case management updated about discharge plans.
Anticipated Discharge: Within 24 hours
Subjective/Interval History
-
Date of Service: August 04, 2023
Patient seen and examined. Looks comfortable, nonverbal.
Objective Data
-
Labs:
Laboratory Results
08/04/23
06:00
Sodium Pending
Potassium Pending
Chloride Pending
Carbon Dioxide Pending
BUN Pending
Creatinine Pending
Glucose Pending
Calcium Pending
Vital Signs:
Vital Signs
Temp Pulse Resp BP Pulse Ox
96.6 F L 68 14 153/74 100
08/04/23 07:35 08/04/23 07:35 08/04/23 07:35 08/04/23 07:35 08/04/23 03:20
I&O
08/03/23 08/04/23 08/05/23
06:59 06:59 06:59
Intake Total 1200 / 1200 960 / 960
Balance 1200 / 1200 960 / 960
Review of Systems
-
Unable to obtain full review of systems at this time due to: Dementia and Patient Non-verbal
[2023-08-04 12:40] VITALS: BP 102/44
--- NOTE | 2023-08-04 12:45 | PTCARENOTE ---
Patient started on tube feed at 11am today (10ml/hr).
[2023-08-04 13:33] LABS: Blood Urea Nitrogen 8 mg/dl (7-17); Calcium 8.8 mg/dl (8.4-10.2); Carbon Dioxide 26 mmol/L (22-30); Chloride 104 mmol/L (98-107); Estimated Creatinine Clearance 42 ml/min; Glucose 82 mg/dl (70-99); Phosphorus 3.3 mg/dl (2.5-4.5); Potassium 4.2 mmol/L (3.5-5.1); Sodium 136 mmol/L (135-145); eGFR > 60.00
[2023-08-04 15:20] VITALS: BP 115/91
--- NOTE | 2023-08-04 15:46 | CM ---
Reviewed the chart notes. Peg tube in place, tube feeding initiated. CM spoke with the patient's son Brett via telephone. Informed of IMM. Copy left at bedside. CM continues to be available to patient/family and is monitoring medical plan for
needs at discharge.
Plan: Discharge back to [facility] once medically stable.
Call report to: [phone] - [phone]
Fax report to: [phone]
[2023-08-04] MEDS: LOVENOX 40 MG SC (17:25)
[2023-08-04] MEDS: CATAPRES 0.100000000000000006 MG PO (21:50)
[2023-08-04] MEDS: REMERON 7.5 MG TUBE (21:50)
[2023-08-04] MEDS: LIPITOR 10 MG TUBE (21:51)
[2023-08-04 23:30] VITALS: BP 143/64
[2023-08-05 05:43] VITALS: BMI 13.6
[2023-08-05 07:30] VITALS: BP 146/70
[2023-08-05 08:56] LABS: Blood Urea Nitrogen 12 mg/dl (7-17); Calcium 8.3 mg/dl (8.4-10.2); Carbon Dioxide 30 mmol/L (22-30); Chloride 103 mmol/L (98-107); Estimated Creatinine Clearance 31 ml/min; Glucose 134 mg/dl (70-99); Magnesium 2.3 mg/dl (1.6-2.3); Phosphorus 2.6 mg/dl (2.5-4.5); Potassium 4.3 mmol/L (3.5-5.1); Sodium 135 mmol/L (135-145); eGFR > 60.00
[2023-08-05] MEDS: LAMICTAL 100 MG TUBE (10:41)
[2023-08-05] MEDS: MAGNESIUM OXIDE 500 MG TUBE (10:41)
[2023-08-05] MEDS: POLYSPORIN/DOUBLE ANTIBIOTIC 1 APPLIC TOPICAL (10:41)
[2023-08-05] MEDS: HALDOL 2 MG TUBE (10:41)
[2023-08-05] MEDS: LOW STRENGTH ASPIRIN 81 MG TUBE (10:42)
[2023-08-05] MEDS: CATAPRES 0.100000000000000006 MG PO (10:42)
[2023-08-05] MEDS: PEPCID 20 MG TUBE (10:42)
--- NOTE | 2023-08-05 10:59 | CM ---
Reviewed the chart notes. Patient ready for d/c today.
Plan: Discharge back to [facility] once medically stable.
Call report to: [phone] - [phone]
Fax report to: [phone]
Medical necessity and transport forms on chart.
--- NOTE | 2023-08-05 10:59 | W.PN.HOSP.TC ---
Today's Communication/Plan
-
Discharge
Assessment / Plan
Assessment / Plan
Gen-awake, alert, nonverbal, NAD
HEENT-NC, AT, anicteric, clear oral mm
Neck-supple
CV-reg, no M, +S1/S2
Lungs-clear B/L
Abd-soft, NT, ND
Ext-no edema
Musculoskeletal-no cyanosis, clubbing
Skin-warm and dry
Failure to thrive -due to advanced dementia, severe dysphagia.
Severe dysphagia -due to advanced dementia. PEG tube placed on August 02. Abdominal binder in place to prevent her from pulling the tube out. Tube feeding started and nursing to increase to goal rate today. Tolerating without significant
residuals. Electrolytes today are normal.
Hyponatremia -resolved.
Hypomagnesemia -resolved.
Hypokalemia -resolved.
Hypophosphatemia -improved.
Essential hypertension -appears patient was on as needed clonidine prior to admission. Clonidine changed to standing doses of 0.1 mg twice daily, will continue on discharge.
DM2 with hypoglycemia - Not on diabetes medications.
History of stroke with advanced dementia with behavioral disturbances
Cerebral aneurysm
Hyperlipidemia
Functional quadriplegia
DVTppx
lovenox
Full code
Dispo -back to senior care today. Medically stable. Discussed with nursing and case management. Reported that family is aware.
32-minute spent in discharge process.
Anticipated Discharge: Today
Subjective/Interval History
-
Date of Service: August 05, 2023
Seen and examined. Looks comfortable. Nonverbal.
Objective Data
-
Labs:
Laboratory Results
08/05/23 08/05/23
05:58 07:52
Sodium Cancelled 135
Potassium Cancelled 4.3
Chloride Cancelled 103
Carbon Dioxide Cancelled 30
BUN Cancelled 12
Creatinine Cancelled 0.8
Glucose Cancelled 134 H
Calcium Cancelled 8.3 L
Vital Signs:
Vital Signs
Temp Pulse Resp BP Pulse Ox
97 F 85 18 146/70 95
08/05/23 07:30 08/05/23 07:30 08/05/23 07:30 08/05/23 07:30 08/05/23 07:30
I&O
08/04/23 08/05/23 08/06/23
06:59 06:59 06:59
Intake Total 960 / 960 790 / 790
Balance 960 / 960 790 / 790
Review of Systems
-
Unable to obtain full review of systems at this time due to: Dementia and Patient Non-verbal
--- NOTE | 2023-08-05 11:06 | W.DS.TRANS ---
DC Summary - [employer] Lead [employer]
-
Discharge Instructions:
Discharge Diagnosis/Procedures Severe malnutrition, severe dysphagia, advanced
dementia
Diet Tube feeding
Activity As tolerated
Driving Restrictions No driving
Bathing Restrictions None
Blood Work CMP, magnesium, phosphate on Saturday 08/05
Instructions:
Stand-Alone Forms:
Changes to Home Medications: No
Discharge Medications:
DC Medications w/original date entered in [facility]
acetaminophen 325 mg tablet 650 mg (2 x 325 mg) feeding tube Q6HPRN PRN mild pain, temp>101 #0 tabs 08/05/23
aspirin 81 mg chewable tablet (Children's Aspirin) 81 mg feeding tube DAILY #0 tabs 08/05/23
atorvastatin 10 mg tablet 10 mg feeding tube HS #0 tabs 08/05/23
bacitracin zinc 500 unit-polymyxin B 10,000 unit/gram topical ointment (Double Antibiotic (bacitrcn zn)) 1 applic topical DAILY #14.2 grams 08/05/23
bisacodyl 10 mg rectal suppository 10 mg LA DAILY PRN if mom ineffective #0 ea 08/05/23
clonidine HCl 0.1 mg tablet 0.1 mg feeding tube BID #0 tabs 08/05/23
famotidine 20 mg tablet 20 mg feeding tube DAILY #0 tabs 08/05/23
haloperidol 2 mg tablet 2 mg feeding tube BID #0 tabs 08/05/23
lamotrigine 100 mg tablet 100 mg feeding tube BID #60 tabs 08/05/23
magnesium oxide 500 mg feeding tube BID #0 tabs 08/05/23
mirtazapine 7.5 mg tablet 7.5 mg feeding tube HS #0 tabs 08/05/23
polyethylene glycol 3350 17 gram oral powder packet (HealthyLax) 17 g feeding tube DAILYPRN PRN constipation #0 ea 08/05/23
sennosides 8.6 mg-docusate sodium 50 mg tablet (Stool Softener-Stimulant Laxative) 1 tab feeding tube BIDPRN PRN constipation #0 tabs 08/05/23
sodium phosphates 19 gram-7 gram/118 mL enema (Enema) 135 ml LA DAILY PRN if suppository is ineffective #0 mL 08/05/23
sorbitol 70 % solution 30 ml feeding tube [id number] PRN if no bm x 3 days #0 mL 08/05/23
Home Medication Changes
Pending Results: No
--- NOTE | 2023-08-05 11:22 | PTCARENOTE ---
Assumed care at 0700. per CPOT, patient exhibits acceptable level of pain. 35ml TF residual noted. Dr. Gonzales amezcuaed increasing TF rate to 45ml/hr (goal rate). Repositioned for comfort.
[2023-08-05 13:56] VITALS: BP 103/49
== END 2023-08-05 15:05 | DRG 884 ==
LOC: 2 NORTH 08:30
PROVIDERS: Internal Medicine; Internal Medicine Gastroenterology; Surgery; ADMITTING PHYSICIAN Internal Medicine; ATTENDING PHYSICIAN Hospitalist; CONSULT PHYSICIAN Internal Medicine Gastroenterology; EMERGENCY PHYSICIAN Emergency Medicine; FAMILY PHYSICIAN Internal Medicine
PROC: 0DJ08ZZ Inspection of Upper Intestinal Tract, Via Natural or Artificial Opening Endoscopic (ICD-10-PCS; 2023-08-03)
PROC: 0DH63UZ Insertion of Feeding Device into Stomach, Percutaneous Approach (ICD-10-PCS; 2023-08-03)
DX: F03.90 Unspecified dementia, unspecified severity, without behavioral disturbance, psychotic disturbance, mood disturbance, and anxiety (principal); E43 Unspecified severe protein-calorie malnutrition; R53.2 Functional quadriplegia; E87.1 Hypo-osmolality and hyponatremia; Z68.1 Body mass index [BMI] 19.9 or less, adult; L89.222 Pressure ulcer of left hip, stage 2; R62.7 Adult failure to thrive; Z79.82 Long term (current) use of aspirin; R13.10 Dysphagia, unspecified; K44.9 Diaphragmatic hernia without obstruction or gangrene; K31.89 Other diseases of stomach and duodenum; E83.42 Hypomagnesemia; E87.6 Hypokalemia; E11.22 Type 2 diabetes mellitus with diabetic chronic kidney disease; N18.9 Chronic kidney disease, unspecified; E78.00 Pure hypercholesterolemia, unspecified; E11.649 Type 2 diabetes mellitus with hypoglycemia without coma; E83.39 Other disorders of phosphorus metabolism; L89.522 Pressure ulcer of left ankle, stage 2
CPT/HCPCS: 70450; 71045; 80048; 80053; 81003; 81015; 82962; 83735; 84100; 85025; 87070; 87077; 87086; 87186; 92526; 92610; 93971; 96374; 99285; 99406

== ENCOUNTER 2023-10-24 12:59 | Emergency (ER) | payer MEDICARE, OTHER, SELFPAY ==
[2023-10-24 13:02] VITALS: BP 136/109; BP 137/84
[2023-10-24 13:05] VITALS: BP 137/84
--- NOTE | 2023-10-24 13:19 | ED.GENMED ---
History of Present Illness
General
Chief Complaint: Catheter/Tube Problem
Source: records and [facility] records
Exam Limitations: dementia
Time Seen by Provider: 10/24/23 13:16
Nursing documentation reviewed up to this point in time: agreed with
History of Present Illness
History of Present Illness:
Patient is an 82-year-old female with PEG tube that was placed in the past couple of months and is now clogged. Patient constantly is singing and is really not responsive to questions
Past History
Past History
ED Past Medical History: GERD, HTN, Hypercholesterolemia, NIDDM, Psychiatric (Hallucination, dementia with behavioral disturbance) and Other (Cerebral aneurysm, Dementia, generalized muscle weakness/impaired mobility, malnutrition)
ED Past Surgical History: None
Social History
Tobacco: Non-smoker
Alcohol: None
Drug: None
Personal: Single
Living: [facility] ([facility])
Employment: Not employed
Family History
Family History: Unable to obtain
Review of Systems
Review of Systems
Unable to obtain full review of systems at this time due to: dementia
All Other Systems: Not applicable
Phy Exam
Physical Exam
Physical Exam:
Physical Exam
General: No apparent distress, alert and reportedly usual mental status, elderly and frail
HENT: Normocephalic, supple
Eyes: Clear sclera, conjuctiva without injection
Heart: Regular rhythm and rate. No S3, S4. No murmur.
Lungs: No respiratory distress, no stridor, lung sounds clear and equal bilaterally
Abdomen: Soft, nontender, PEG tube in the left upper quadrant/midepigastric region BS good
Neuro: Alert without focality
Skin: no rash
Extremities: No edema, cyanosis, tenderness
Scores
Heart Failure Risk
Heart Failure Risk Score: Not Applicable
Heart Score for Chest Pain Patients
STEMI patient?: Not applicable
Withdrawal Assessment of Alcohol
Withdrawal Assessment Completed?: Not applicable
Course
Vital Signs
Initial and Last Documented VS:
Initial Vital Signs
Pulse Resp BP Pulse Ox
99 16 136/109 95
10/24/23 13:02 10/24/23 13:02 10/24/23 13:02 10/24/23 13:02
Last Documented Vital Signs
Temp Pulse Resp BP Pulse Ox
98.2 F 98 16 137/84 95
10/24/23 13:05 10/24/23 13:05 10/24/23 13:05 10/24/23 13:05 10/24/23 13:02
*Critical Care Note
Total Time (30-74mins, 75-104mins- exclusive of procedures): Not Applicable
Update Note
Update Note:
Tube was unclogged with valeria minor. Patient has good flow through tube.
ED Attending Note
-
Portions of this chart may have been created with voice recognition software.� Occasional wrong word or��sound alike� substitutions may have occurred due to the inherent limitations of voice recognition software.
Discharge Plan
Departure
Patient Disposition: Alf/SNF
Date of Disposition: 10/24/23
Time of Disposition: 13:22
Patient with high blood pressure during this ER visit?: No
Condition: Good
Covid-19: Not Applicable
Discharge Problem:
PEG tube malfunction
Instructions: How to Care for Your Gastrostomy Tube
Prescriptions:
No Action
clonidine HCl 0.1 mg Tablet
0.1 mg feeding tube BID Qty: 0 0RF
acetaminophen 325 mg Tablet
650 mg feeding tube Q6HPRN PRN (Reason: mild pain, temp>101) Qty: 0 0RF
famotidine 20 mg Tablet
20 mg feeding tube DAILY Qty: 0 0RF
Enema 19-7 gram/118 mL Enema
135 ml GA DAILY PRN (Reason: if suppository is ineffective) Qty: 0 0RF
magnesium oxide 500 mg magnesium Tablet
500 mg feeding tube BID Qty: 0 0RF
aspirin [Children's Aspirin] 81 mg Tablet,Chewable
81 mg feeding tube DAILY Qty: 0 0RF
haloperidol 2 mg Tablet
2 mg feeding tube BID Qty: 0 0RF
lamotrigine 100 mg Tablet
100 mg feeding tube BID Qty: 60 0RF
polyethylene glycol 3350 [HealthyLax] 17 gram Powder In Packet
17 g feeding tube DAILYPRN PRN (Reason: constipation) Qty: 0 0RF
bisacodyl 10 mg Suppository
10 mg GA DAILY PRN (Reason: if mom ineffective) Qty: 0 0RF
Double Antibiotic (b.tracn Zn) 500-10,000 unit/gram Ointment
1 applic topical DAILY Qty: 14.2 0RF
mirtazapine 7.5 mg Tablet
7.5 mg feeding tube HS Qty: 0 0RF
atorvastatin 10 mg Tablet
10 mg feeding tube HS Qty: 0 0RF
sennosides-docusate sodium [Stool Softener-Stimulant Laxat] 8.6-50 mg Tablet
1 tab feeding tube BIDPRN PRN (Reason: constipation) Qty: 0 0RF
sorbitol 70 % Solution
30 ml feeding tube [id number] PRN (Reason: if no bm x 3 days) Qty: 0 0RF
Referrals:
Tate Bai I., DO [Family Provider] -
Activity Restrictions/Additional Instructions:
Continue present medications and therapy
Interventions
Interventions:
*Risk Screen - Suicide Last Done: 10/24/23 13:02
*General Assessment Last Done: 10/24/23 13:02
*Neglect/Abuse Screening Last Done: 10/24/23 13:02
Discharge Date and Time
Print Language: UKRAINIAN
== END 2023-10-24 16:26 ==
LOC: EMR 12:59
PROVIDERS: EMERGENCY PHYSICIAN Emergency Medicine; FAMILY PHYSICIAN Internal Medicine
DX: K94.23 Gastrostomy malfunction (principal); F03.918 Unspecified dementia, unspecified severity, with other behavioral disturbance
CPT/HCPCS: 99282

== ENCOUNTER 2024-04-10 22:36 | Emergency (ER) | payer MEDICARE, OTHER, SELFPAY ==
[2024-04-10 22:40] VITALS: BP 135/72
--- NOTE | 2024-04-10 22:52 | ED.GENMED ---
History of Present Illness
General
Chief Complaint: Catheter/Tube Problem
Time Seen by Provider: 04/10/24 22:52
History of Present Illness
History of Present Illness:
TIME OF INITIAL ENCOUNTER: 10:50 PM
HPI: The reason for visit is very unclear upon arrival. We were later able to get a hold of the staff at her facility. We were told that a physician over there was concerned about how much of the tube is 'inside'. There is no report of any
dislodgment out of her stomach but they wanted further evaluation. There were no other specific complaints. They wanted us to verify that the tubes in appropriate position or change the tube.
EXAM:
GENERAL: Appears in no distress
HEENT: Moist oral mucosa
ABDOMEN: Soft and nontender with no peritoneal signs, there is a feeding tube in the left upper quadrant which does appear to be nearly entirely internalized other than the ports
NEUROLOGIC: The patient has evidence of dementia, does not persist with examination, alert
EXTREMITIES: Contractures noted to the extremities
PYSCHIATRIC: Nonverbal
NUMBER AND COMPLEXITY OF PROBLEMS ADDRESSED AT THE ENCOUNTER
� Chronic conditions affecting care: Dementia with behavioral disturbance, high blood pressure, anxiety/depression, bipolar
� Acute Exacerbation and/or Progression of Chronic Illness: This is an acute problem
� Differential Diagnosis includes: Clogged G-tube, G-tube, displaced G-tube
AMOUNT AND/OR COMPLEXITY OF DATA TO BE REVIEWED AND ANALYZED
� I performed an independent evaluation of and my interpretation is:
EKG:
CT:
X-rays: I personally viewed x-rays with contrast of the abdomen that confirms appropriate position of the feeding tube
Laboratory Studies:
Other:
� Review of other/old records: I reviewed records, the patient had a PEG tube placed by Dr. Chester July 2023
� Clinical information was obtained by an independent historian: I spoke to staff at [facility]
� Prescriptions/Medications Considered but not given:
� Further testing considered but not performed:
RISK OF COMPLICATIONS AND/OR MORBIDITY OR MORTALITY OF PATIENT MANAGEMENT
� Social determinants of health affecting care: Resides from [facility]
� Discussion with other providers: Discussed case with Dr. Andrade check in place
� Escalation of care including admission/observation vs risk of discharge considered: The feeding tube is in place. We were able to instill avleria iván and it was flowing freely.
ANY OTHER UPDATES:
Nurse called over to [facility]. We are told that somebody there replaced the tube that was dislodged. She was sent here because they wanted to have a confirmatory study to ensure appropriate tube placement.
1:30 AM: I replaced a new 20 Nauruan feeding tube in 1 attempt without any difficulty that went in very easily.
Past History
Past History
ED Past Medical History: GERD, HTN, Hypercholesterolemia, NIDDM, Psychiatric (Hallucination, dementia with behavioral disturbance) and Other (Cerebral aneurysm, Dementia, generalized muscle weakness/impaired mobility, malnutrition)
ED Past Surgical History: None
Social History
Tobacco: Non-smoker
Alcohol: None
Drug: None
Personal: Single
Living: half-way ([place])
Employment: Not employed
Family History
Family History: Unable to obtain
Phy Exam
Physical Exam
Physical Exam:
See HPI
Course
Orders/Labs/Results
Orders:
Orders
04/11/24 01:09
CR Cont Inj Eval Tube(by Rad) Urgent
Comment:
Reason For Exam: eval tube placement
Vital Signs
Initial and Last Documented VS:
Initial Vital Signs
Temp Pulse Resp BP Pulse Ox
36.9 C 80 18 135/72 97
04/10/24 22:40 04/10/24 22:40 04/10/24 22:40 04/10/24 22:40 04/10/24 22:40
Last Documented Vital Signs
Temp Pulse Resp BP Pulse Ox
36.9 C 73 18 128/63 99
04/10/24 22:40 04/10/24 23:34 04/10/24 22:40 04/10/24 23:34 04/10/24 23:34
Procedures
Other
Indication for procedure:: Possible feeding tube malfunction
Procedure completed by: Mo, Dr. Carbajal
Consent form signed: No
If no, reason: Emergency procedure
Additional Procedure:
Procedure note: I placed a new 20 Nauruan feeding tube in 1 attempt without any difficulty. Gastric contents were noted in the tube immediately after I placed the new tube. I used 20 mL of saline to inflate the 20 mL balloon. I did remove the old
tube in its entirety after deflating mL of fluid from the balloon.
*Critical Care Note
Total Time (30-74mins, 75-104mins- exclusive of procedures): Not Applicable
ED Attending Note
-
Portions of this chart may have been created with voice recognition software.� Occasional wrong word or��sound alike� substitutions may have occurred due to the inherent limitations of voice recognition software.
Discharge Plan
Departure
Patient Disposition: Home (Routine Discharge)
Date of Disposition: 04/11/24
Time of Disposition: 00:12
Patient with high blood pressure during this ER visit?: Yes
Discharge Problem:
Complication of feeding tube
Prescriptions:
No Action
clonidine HCl 0.1 mg Tablet
0.1 mg feeding tube BID Qty: 0 0RF
acetaminophen 325 mg Tablet
650 mg feeding tube Q6HPRN PRN (Reason: mild pain, temp>101) Qty: 0 0RF
famotidine 20 mg Tablet
20 mg feeding tube DAILY Qty: 0 0RF
Enema 19-7 gram/118 mL Enema
135 ml NH DAILY PRN (Reason: if suppository is ineffective) Qty: 0 0RF
magnesium oxide 500 mg magnesium Tablet
500 mg feeding tube BID Qty: 0 0RF
aspirin [Children's Aspirin] 81 mg Tablet,Chewable
81 mg feeding tube DAILY Qty: 0 0RF
haloperidol 2 mg Tablet
2 mg feeding tube BID Qty: 0 0RF
lamotrigine 100 mg Tablet
100 mg feeding tube BID Qty: 60 0RF
polyethylene glycol 3350 [HealthyLax] 17 gram Powder In Packet
17 g feeding tube DAILYPRN PRN (Reason: constipation) Qty: 0 0RF
bisacodyl 10 mg Suppository
10 mg NH DAILY PRN (Reason: if mom ineffective) Qty: 0 0RF
Double Antibiotic (b.tracn Zn) 500-10,000 unit/gram Ointment
1 applic topical DAILY Qty: 14.2 0RF
mirtazapine 7.5 mg Tablet
7.5 mg feeding tube HS Qty: 0 0RF
atorvastatin 10 mg Tablet
10 mg feeding tube HS Qty: 0 0RF
sennosides-docusate sodium [Stool Softener-Stimulant Laxat] 8.6-50 mg Tablet
1 tab feeding tube BIDPRN PRN (Reason: constipation) Qty: 0 0RF
sorbitol 70 % Solution
30 ml feeding tube [id number] PRN (Reason: if no bm x 3 days) Qty: 0 0RF
Referrals:
James Mathews, [Family Provider] -
Activity Restrictions/Additional Instructions:
I placed a new 20 Nauruan feeding tube and instilled 20 mL of saline in the balloon port. She then had a confirmatory study and by x-rays with contrast confirmed that the tube is in appropriate position. Return here if worse or other concerns.
Interventions
Interventions:
*Risk Screen - Suicide Last Done: 04/10/24 22:43
*General Assessment Last Done: 04/10/24 22:43
*Neglect/Abuse Screening Last Done: 04/10/24 22:43
*ED COVID-19 Vaccine History Last Done: 04/10/24 22:43
TT-Emzvcd-Rsfqxqzhsb Assessment Last Done: 04/10/24 22:43
ED-Female Genitourinary Assessment Last Done: 04/10/24 22:44
Discharge Date and Time
Print Language: SAMI
[2024-04-10 23:34] VITALS: BP 128/63
== END 2024-04-11 04:10 | disposition home or self-care (01) ==
LOC: EMR 22:36
PROVIDERS: EMERGENCY PHYSICIAN Emergency Medicine; FAMILY PHYSICIAN Internal Medicine
DX: K94.20 Gastrostomy complication, unspecified (principal); Z46.59 Encounter for fitting and adjustment of other gastrointestinal appliance and device; K21.9 Gastro-esophageal reflux disease without esophagitis; I10 Essential (primary) hypertension; E78.00 Pure hypercholesterolemia, unspecified; E11.9 Type 2 diabetes mellitus without complications; R44.3 Hallucinations, unspecified; F03.918 Unspecified dementia, unspecified severity, with other behavioral disturbance; Z46.82 Encounter for fitting and adjustment of non-vascular catheter
CPT/HCPCS: 99283; 43762; 49465

== ENCOUNTER 2024-07-10 16:00 | Inpatient (IN) | payer MEDICARE, OTHER, SELFPAY ==
[2024-07-10] VITALS (15 sets, daily range): BP systolic 137–183; BP diastolic 77–130; BMI 24.7
[2024-07-10 11:29] LABS: Glucose - Point of Care > 600 mg/dl (70-99)
[2024-07-10 11:53] LABS: % Basophils 0.4 % (0-2); % Eosinophils 0.2 % (0-6); % Immature Granulocytes 0.4 % (0-0.5); % Lymphocytes 19.5 % (20.5-51.1); % Monocytes 4.3 % (1.7-9.3); % Neutrophils 75.2 % (42.2-75.2); Absolute Basophils 0.1 10^3/uL (0-0.2); Absolute Immature Granulocytes 0.1 10^3/uL (0-0.05); Absolute Lymphocytes 3.3 10^3/uL (1.2-3.4); Absolute Monocytes 0.7 10^3/uL (0.1-0.6); Absolute Neutrophils 12.7 10^3/uL (1.4-6.5); Hematocrit 50.7 % (37.0-47.0); Hemoglobin 15.2 g/dL (12.0-16.0); Mean Corpuscular Hgb 26.3 pg (27.0-31.0); Mean Corpuscular Volume 87.7 fL (81.0-99.0); Mean Platelet Volume 11.8 fL (7.4-10.4); Nucleated Red Blood Cells % 0 %; Platelet Count 196 10^3/uL (130-400); Red Blood Cell Count 5.78 10^6/uL (4.20-5.40); Red Cell Dist. Width 15.8 % (11.5-14.5); White Blood Cell Count 16.8 10^3/uL (4.8-10.8)
[2024-07-10 12:07] LABS: ALT (SGPT) 26 U/L (0-35); AST (SGOT) 22 U/L (14-36); Albumin 4.2 g/dl (3.5-5.0); Alkaline Phosphatase 221 U/L (38-126); Blood Urea Nitrogen 57 mg/dl (7-17); Calcium 10.3 mg/dl (8.4-10.2); Carbon Dioxide 29 mmol/L (22-30); Chloride 115 mmol/L (98-107); Estimated Creatinine Clearance 31 ml/min; Potassium 4.7 mmol/L (3.5-5.1); Sodium 161 mmol/L (135-145); Total Bilirubin 0.6 mg/dl (0.2-1.3); Total Protein 8.8 g/dl (6.3-8.2); eGFR 45.19
--- NOTE | 2024-07-10 12:20 | ED.GENMED ---
History of Present Illness
General
Chief Complaint: Blood Sugar Problem
Source: ambulance crew
Time Seen by Provider: 07/10/24 12:09
History of Present Illness
History of Present Illness:
83-year-old female brought to the emergency room for altered mental status. Patient resides at [facility]. She typically is confused but awake and will interact with staff. She does consume some food on her own and typically does
well with breakfast. She gets supplemental nutrition via feeding tube. Today she did not eat anything. Nurse practitioner was doing rounds this morning and found her to be less interactive than normal. At around 1030 her nurse noted she was
really not responsive at all. They found her to be tachycardic and hypertensive when they took her vital signs. Patient does have diabetes but is managed with diet. She does not take any medications or insulin.
Past History
Past History
ED Past Medical History: GERD, HTN, Hypercholesterolemia, NIDDM, Psychiatric (Hallucination, dementia with behavioral disturbance) and Other (Cerebral aneurysm, Dementia, generalized muscle weakness/impaired mobility, malnutrition)
ED Past Surgical History: None
Social History
Tobacco: Non-smoker
Alcohol: None
Drug: None
Personal: Single
Living: [facility] ([facility])
Employment: Not employed
Family History
Family History: Unable to obtain
Phy Exam
Physical Exam
Physical Exam:
General: Essentially nonresponsive. Does moan with some painful stimulus
Vitals: Tachycardic, hypertensive
Head: Atraumatic
Eyes: Pupils equal, EOMI
Throat: Airway intact, no exudates, dry mucosa
Neck: Trachea midline
Lungs: Clear and equal b/l
Heart: Regular rate, no murmurs
Abd: Soft, response with groaning when abdomen is palpated, No pulsatile mass
Rectal:
Neuro: Baseline contractures
Skin: Warm, dry, no rash
Extremities: pulses equal b/l, no edema
Course
Orders/Labs/Results
Orders:
Orders
07/10/24 11:25
EKG [Electrocardiogram (*1)] Urgent
Reason for Study: Shortness of Breath
EKG- Treatment ONCE
07/10/24 11:43
B-Hydroxybutyrate Urgent
Comment: ADD ON
CBC/With Diff [Complete Blood Count/With Diff] Urgent
CMP [Comprehensive Metabolic Panel] Urgent
07/10/24 12:18
Add On- LAB Urgent
Tests Added?: beta-hyroxybuterate
Bedside Glucose- Treatment Q1H
IV Insert/Care/Rem.- Treatment PRN
07/10/24 12:19
Felipe Placement- Treatment ONCE
Reason for insertion: I&O's Critical Care
0.9% Sodium Chloride 1000 ml [Nss] 1,000 ml IV BOLUS
07/10/24 12:25
Venous Blood Gas Urgent
%Oxygen/Room Air: ra
07/10/24 12:28
CT Head W/o Iv Contrast Urgent
Comment:
Reason For Exam: altered mental status
Iohexol [Omnipaque] See Protocol PO NOW STA
07/10/24 12:29
CT Abd/pel (oral only)-DH Only Urgent
Comment:
Reason For Exam: abd pain to palpation
CR Chest Portable - 1 View Urgent
Comment:
Reason For Exam: altered mental status
Reason Study Needs to be Portable: Patient Unstable
07/10/24 12:31
Bedside Glucose- Treatment ONCE
IV Insert/Care/Rem.- Treatment PRN
07/10/24 12:45
Reg Insulin 100 Units/100 ml [Novolin R Insulin Infusion] 100 units in 100 ml IV NOW
07/10/24 13:00
KCl 20 Meq/0.9%Sodchl 1000 ml [NSS with KCL 20 MEQ] 20 meq in 1,000 ml IV 250 mls/hr
07/10/24 13:02
Urinalysis Reflex To Culture Urgent
Date Specimen was Collected: 07/10/24
Time Specimen was Collected: 12:43
Urine Microscopic Reflex Cult Urgent
Urine Culture Urgent
FIDELINA Source: U
Specimen Description:
Date Specimen was Collected: 07/10/24
Time Specimen was Collected: 12:43
07/10/24 13:09
Basic Metabolic Panel Q2H
07/10/24 13:54
HYDROmorphone [Dilaudid] 0.25 mg IV NOW STA
07/10/24 14:33
Basic Metabolic Panel Q2H
07/10/24 15:26
Admit/Transfer Patient As Directed
Co-Sign Provider:
Level of Care: Inpatient admission
Assign to:: Telemetry
Physician / Group: Baldev
Diagnosis: HHNK, hypernatremia
Reason for Telemetry: Arrhythmia
Date to Stop Telemetry: 07/13/24
Time to Stop Telemetry: 11:00
Reason for Hospitalization: HHNK, hypernatremia
Expected length of stay greater than two midnights?: Yes
ELOS- Estimated Length of Stay in days: 3
I certify the patient meets the requirements for IP care: Yes
PRN Pain Medication Management As Directed
May give lesser potent ordered pain med per pt: Yes
preference::
Protocol:: Medication orders for pain may be administered in a
manner that supports deferring to patient preference
when the pt is:
- Requesting an ordered lesser potent pain medication.
Least to most potent pain medications are defined
as: acetaminophen < NSAID < tramadol < opioids
(morphine, oxycodone, hydromorphone).
- Requesting a lesser dose of the same medication IF
ORDERED.
- Requesting a less intrusive route of administration
if both routes are prescribed by the provider (PO <
IV).
07/10/24 15:29
Code Status As Directed
Resuscitation Status: Full Code
07/10/24 16:00
0.45% Sodium Chloride 1000 ml [0.45%NaCl] 1,000 ml IV 125 mls/hr
Insulin Glargine Lantus [Lantus] 8 units Subcutaneous Insulin Syringe [Syringe-Insulin] 0 unit SC DAILY
07/10/24 16:45
Basic Metabolic Panel Q2H
07/13/24 11:00
DC Protocol for Telemetry ONCE
Abnormal Lab Results
07/10/24 07/10/24 07/10/24
11:28 11:43 12:25
WBC 16.8 H 10^3/uL
(4.8-10.8)
RBC 5.78 H 10^6/uL
(4.20-5.40)
Hct 50.7 H %
(37.0-47.0)
MCH 26.3 L pg
(27.0-31.0)
MCHC 30.0 L g/dL
(33.0-37.0)
RDW 15.8 H %
(11.5-14.5)
MPV 11.8 H fL
(7.4-10.4)
Abs Immat Gran (auto) 0.1 H 10^3/uL
(0-0.05)
Absolute Neuts (auto) 12.7 H 10^3/uL
(1.4-6.5)
Absolute Monos (auto) 0.7 H 10^3/uL
(0.1-0.6)
Lymphocytes % 19.5 L %
(20.5-51.1)
VBG pCO2 50 H mmHg
(35-48)
VBG pO2 90 H mmHg
(30-50)
VBG HCO3 32.4 H mmol/L
(22-27)
Sodium 161 H* mmol/L
(135-145)
Potassium
Chloride 115 H mmol/L
(98-107)
BUN 57 H mg/dl
(7-17)
Creatinine 1.2 H mg/dL
(0.6-1.0)
Glucose 772 H* mg/dl
(70-99)
Calcium 10.3 H mg/dl
(8.4-10.2)
Alkaline Phosphatase 221 H U/L
(38-126)
Total Protein 8.8 H g/dl
(6.3-8.2)
Ur Occult Blood Reflex
Urine RBC
Urine Bacteria (Reflex)
Urine Glucose
Urine Albumin (Reflex)
B-Hydroxybutyrate 0.87 H mmol/L
(0.02-0.27)
POC Glucose > 600 H* mg/dl
(70-99)
07/10/24 07/10/24 07/10/24
13:02 13:09 14:33
WBC
RBC
Hct
MCH
MCHC
RDW
MPV
Abs Immat Gran (auto)
Absolute Neuts (auto)
Absolute Monos (auto)
Lymphocytes %
VBG pCO2
VBG pO2
VBG HCO3
Sodium 158 H mmol/L 163 H* mmol/L
(135-145) (135-145)
Potassium 5.2 H mmol/L
(3.5-5.1)
Chloride 120 H mmol/L 122 H mmol/L
(98-107) (98-107)
BUN 58 H mg/dl 50 H mg/dl
(7-17) (7-17)
Creatinine 1.1 H mg/dL
(0.6-1.0)
Glucose 695 H* mg/dl 445 H mg/dl
(70-99) (70-99)
Calcium
Alkaline Phosphatase
Total Protein
Ur Occult Blood Reflex 3+ A
(Negative)
Urine RBC 11-15 A /HPF
(0-2)
Urine Bacteria (Reflex) Moderate A
(Negative)
Urine Glucose 4+ A
(Negative)
Urine Albumin (Reflex) 3+ A
(Neg - Trace)
B-Hydroxybutyrate
POC Glucose
07/10/24
15:15
WBC
RBC
Hct
MCH
MCHC
RDW
MPV
Abs Immat Gran (auto)
Absolute Neuts (auto)
Absolute Monos (auto)
Lymphocytes %
VBG pCO2
VBG pO2
VBG HCO3
Sodium
Potassium
Chloride
BUN
Creatinine
Glucose
Calcium
Alkaline Phosphatase
Total Protein
Ur Occult Blood Reflex
Urine RBC
Urine Bacteria (Reflex)
Urine Glucose
Urine Albumin (Reflex)
B-Hydroxybutyrate
POC Glucose 291 H mg/dl
(70-99)
07/10/24 11:43
Vital Signs
Initial and Last Documented VS:
Initial Vital Signs
BP
169/103
07/10/24 11:24
Last Documented Vital Signs
Temp Pulse Resp BP Pulse Ox
99 F 104 20 154/85 98
07/10/24 11:53 07/10/24 15:00 07/10/24 15:00 07/10/24 14:22 07/10/24 15:00
MDM/Problems Addressed
Differential Diagnosis Includes:
DKA, HHS, renal failure, dehydration, electrolyte disorder
MDM/Problems Addressed:
[facility] from [facility] with decreased level of responsiveness. Accu-Chek noted to be above the instruments range. Clinically the patient appeared dehydrated. IV fluids initiated. Patient noted to be significantly confused and
minimally responsive on physical exam. However she did seem to respond to palpation of the abdomen suggesting she might have abdominal discomfort. Labs show white count of 16.8 chemistry show a very high sodium of 161 METAL FILER elevated glucose at 772.
When you correct the sodium for the elevated glucose her sodium is 172. Her renal function test show significant dehydration. Patient does not have an anion gap on her chemistries. Beta hydroxybutyrate minimally elevated at 0.87. Venous blood
gas shows a normal pH. Overall I do not believe there is evidence to suggest the patient is in DKA but rather has hyperglycemic hyperosmolar state. IV fluids will be continued. IV insulin drip initiated. Portable chest x-ray appears negative for
acute pathology to me though it is difficult to interpret given her body positioning etc. CT abdomen and pelvis is pending. Patient will require hospitalization to release the IMU for insulin drip, careful monitoring. CT head also pending
interpretation.
*Pulse Oximetry
Patient hypoxic: no
*EKG
Interpreted by ED Provider?: Yes
Interpretation: abnormal
Heart Rate: 134
Rate: tachycardiac
Rhythm: sinus tachycardia
[place]: normal axis
Interval: normal interval
QRS Pattern: normal QRS
Ischemia: non-specific ST changes
*Exhibits Manager Interpretation
Rate: tachycardiac
Interpretation: abnormal
Heart Rate: 134
Rhythm: sinus tachycardia
*Critical Care Note
Total Time (30-74mins, 75-104mins- exclusive of procedures): 41 min
comment:
Critical care statement: A total of 41 minutes of critical care time was provided for this patient. This includes management of unstable vital signs, evaluation of the patient at bedside, reviewing the patient's pertinent medical records, discussion
with consultants, review of old EKGs and review of pertinent medical records. This time with separate from time utilized to perform the aforementioned documented procedures
Patient Management
Social determinants of health affecting care: Living situation
ED Attending Note
-
Portions of this chart may have been created with voice recognition software.� Occasional wrong word or��sound alike� substitutions may have occurred due to the inherent limitations of voice recognition software.
Discharge Plan
Departure
Patient Disposition: Admit
Date of Disposition: 07/10/24
Time of Disposition: 15:08
Admit to: IMU
Presentation/result/management discussed w/ accepting MD/DO: Hospitalist
Condition: Serious
Discharge Problem:
Hyperosmolar hyperglycemic state (HHS), Acute renal failure (ARF), Acute hypernatremia
Prescriptions:
No Action
clonidine HCl 0.1 mg Tablet
0.1 mg feeding tube BID Qty: 0 0RF
acetaminophen 325 mg Tablet
650 mg feeding tube Q6HPRN PRN (Reason: mild pain, temp>101) Qty: 0 0RF
famotidine 20 mg Tablet
20 mg feeding tube DAILY Qty: 0 0RF
Enema 19-7 gram/118 mL Enema
135 ml [place] DAILY PRN (Reason: if suppository is ineffective) Qty: 0 0RF
haloperidol 2 mg Tablet
2 mg feeding tube BID Qty: 0 0RF
lamotrigine 100 mg Tablet
100 mg feeding tube BID Qty: 60 0RF
polyethylene glycol 3350 [HealthyLax] 17 gram Powder In Packet
17 g feeding tube DAILYPRN PRN (Reason: constipation) Qty: 0 0RF
mirtazapine 7.5 mg Tablet
7.5 mg feeding tube HS Qty: 0 0RF
sorbitol 70 % Solution
30 ml feeding tube [id number] PRN (Reason: if no bm x 3 days) Qty: 0 0RF
amlodipine [Norvasc] 10 mg Tablet
10 mg PO DAILY
Creon 3,000-9,500- 15,000 unit Capsule,Delayed Release(Dr/Ec)
1 cap PO DAILYPRN PRN (Reason: clogged feeding tube)
magnesium oxide 400 mg magnesium Tablet
400 mg feeding tube BID
bisacodyl 10 mg suppository
10 mg [place] DAILYPRN PRN (Reason: if mom ineffective)
Referrals:
James Mathews, [Family Provider] -
Interventions
Interventions:
*Risk Screen - Suicide Last Done: 07/10/24 11:27
*General Assessment Last Done: 07/10/24 11:27
*Neglect/Abuse Screening Last Done: 07/10/24 11:27
*ED- Fall Risk Assessment Last Done: 07/10/24 11:27
*ED COVID-19 Vaccine History Last Done: 07/10/24 11:27
ED- Neurological Assessment Last Done: 07/10/24 11:48
Discharge Date and Time
Print Language: [place]
[2024-07-10 12:21] LABS: Glucose 772 mg/dl (70-99)
[2024-07-10] MEDS: NSS 1000 IV (12:27)
[2024-07-10 12:40] LABS: Venous Blood Gas B.E. 6.4 mmol/L (-4 to +4); Venous Blood Gas HCO3 32.4 mmol/L (22-27); Venous Blood Gas pCO2 50 mmHg (35-48); Venous Blood Gas pH 7.42 (7.32-7.43); Venous Blood Gas pO2 90 mmHg (30-50)
[2024-07-10] MEDS: OMNIPAQUE 50 ML PO (12:49)
[2024-07-10 13:07] LABS: B-Hydroxybutyrate 0.87 mmol/L (0.02-0.27)
[2024-07-10 13:08] LABS: Urine Albumin 3+ (Neg - Trace); Urine Bilirubin Negative (Negative); Urine Character Clear (Clear); Urine Color Yellow; Urine Glucose 4+ (Negative); Urine Ketone Negative (Negative); Urine Leukocyte Negative (Negative); Urine Nitrite Negative (Negative); Urine Occult Blood 3+ (Negative); Urine Urobilinogen Negative (Neg - 1+)
[2024-07-10] MEDS: NSS with KCL 20 MEQ 1000 IV (13:15)
[2024-07-10] MEDS: NOVOLIN R INSULIN INFUSION 100 IV (13:16)
[2024-07-10 13:19] LABS: Urine Bacteria Moderate (Negative); Urine Squamous Cell 16-20 /LPF (Few)
[2024-07-10 13:38] LABS: Blood Urea Nitrogen 58 mg/dl (7-17); Calcium 9.4 mg/dl (8.4-10.2); Carbon Dioxide 30 mmol/L (22-30); Chloride 120 mmol/L (98-107); Estimated Creatinine Clearance 34 ml/min; Potassium 5.2 mmol/L (3.5-5.1); Sodium 158 mmol/L (135-145); eGFR 50.17
[2024-07-10 13:49] LABS: Glucose 695 mg/dl (70-99)
[2024-07-10] MEDS: DILAUDID 0.25 MG IV (13:58)
[2024-07-10 14:58] LABS: Blood Urea Nitrogen 50 mg/dl (7-17); Calcium 9.3 mg/dl (8.4-10.2); Carbon Dioxide 30 mmol/L (22-30); Chloride 122 mmol/L (98-107); Estimated Creatinine Clearance 37 ml/min; Glucose 445 mg/dl (70-99); Potassium 3.9 mmol/L (3.5-5.1); Sodium 163 mmol/L (135-145); eGFR 56.25
--- NOTE | 2024-07-10 15:08 | HPS.HSE ---
Addendum entered and electronically signed by Sarath De Paz MD 07/12/24 12:15:
Dictation error: Hyponatremia is incorrect, should read hypernatremia
Original Note:
Family Physician
-
Family Physician: James Mathews, DO
Chief Complaint
-
Altered mental status
History of Present Illness
83 y/o F with PMHx:
GERD
Essential hypertension
HLD
DM2
Dementia with behavioral disturbances
Severe dysphagia due to advanced dementia
Failure to thrive
h/o cerebrovascular accident
History of severe protein calorie malnutrition
History of cerebral aneurysm
who presents from [facility] with a chief complaint of altered mental status. Currently the patient moans to shoulder shaking cannot give a history at this time. History is obtained from discussion with the ER attending as well as ER
documentation. At baseline she does have confusion but can interact with staff. Patient generally can eat breakfast but otherwise has supplemental nutrition via PEG tube. The patient was noted this morning to be not as interactive as her baseline.
She then became less responsive. She was found to be tachycardic and hypertensive. She has diet-controlled diabetes .
Medical History
Past Medical History
Past Medical History: Reports Other (GERD Essential hypertension HLD DM2 Dementia with behavioral disturbances Severe dysphagia due to advanced dementia Failure to thrive h/o cerebrovascular accident History of severe protein calorie malnutrition
History of cerebral aneurysm)
Past Surgical History: Reports Other (N/A)
Social History
Tobacco: Non-smoker
Alcohol: None
Drug: None
Family History
Family History: Not pertinent
Allergies / Home Medications
Allergies reflects when Allergies were last updated in [facility].
Home Medications with original date entered in [facility]
Allergy/Medication List:
Allergies
Allergy/AdvReac Type Severity Reaction Status Date / Time
ADULT DIAPER Allergy Unknown Uncoded 07/10/24 11:26
Home Medications
acetaminophen 325 mg tablet 650 mg (2 x 325 mg) feeding tube Q6HPRN PRN mild pain, temp>101 #0 tabs 08/05/23
clonidine HCl 0.1 mg tablet 0.1 mg feeding tube BID #0 tabs 08/05/23
famotidine 20 mg tablet 20 mg feeding tube DAILY #0 tabs 08/05/23
haloperidol 2 mg tablet 2 mg feeding tube BID #0 tabs 08/05/23
lamotrigine 100 mg tablet 100 mg feeding tube BID #60 tabs 08/05/23
mirtazapine 7.5 mg tablet 7.5 mg feeding tube HS #0 tabs 08/05/23
polyethylene glycol 3350 17 gram oral powder packet (HealthyLax) 17 g feeding tube DAILYPRN PRN constipation #0 ea 08/05/23
sodium phosphates 19 gram-7 gram/118 mL enema (Enema) 135 ml MT DAILY PRN if suppository is ineffective #0 mL 08/05/23
sorbitol 70 % solution 30 ml feeding tube [id number] PRN if no bm x 3 days #0 mL 08/05/23
amlodipine 10 mg tablet (Norvasc) 10 mg PO DAILY 07/10/24
bisacodyl 10 mg rectal suppository 10 mg MT DAILYPRN PRN if mom ineffective 07/10/24
rmpujp-jqozhazl-qculxbv 3,000-9,500-15,000 unit capsule, delayed rel (Creon) 1 cap PO DAILYPRN PRN clogged feeding tube 07/10/24
magnesium oxide 400 mg feeding tube BID 07/10/24
Review of Systems
-
Unable to obtain full review of systems at this time due to: Dementia
Physical Exam
Vital Signs
Vital Signs
Temp Pulse Resp BP Pulse Ox
99 F 104 20 154/85 98
07/10/24 11:53 07/10/24 15:00 07/10/24 15:00 07/10/24 14:22 07/10/24 15:00
Physical Exam
General: Other (.)
Laboratory Results
-
07/10/24 11:43
Laboratory Results
Total Bilirubin 0.6 mg/dl (0.2-1.3) 07/10/24 11:43
AST 22 U/L (14-36) 07/10/24 11:43
ALT 26 U/L (0-35) 07/10/24 11:43
Alkaline Phosphatase 221 U/L (38-126) H 07/10/24 11:43
Impression/Plan
-
Gen: NAD, NCAT
Neck: supple.
CV: Tachycardic, regular rhythm, +S1/S2, no m/r/g.
Resp: CTAB, no rales, wheezes, or rhonchi.
Abd: +BS, soft, NT, ND
Skin: No rashes. Moderate skin tenting
Neuro: CN 2-12 intact, patient moans to shoulder shake
Psych: Calm
CT brain, CT A/P and CXR are pending at this time.
Hyperglycemic, hyperosmolar, nonketotic state:
- Underlying type 2 diabetes mellitus that is diet controlled prior to admission
- with severe hyponatremia
- No anion gap
- At the time of this documentation the patient's most recent blood glucose was in the 200s
- Patient was on an insulin drip in the ER when her blood glucose was in the 700s. Will stop the insulin drip at this time.
- Received 1 L of normal saline in the ER
- Further IV fluid with 1/2NS @ 125cc/hr
- Trend BMP Q6H
- Lantus 8U SC x 1 now
- Moderate resistance sliding scale insulin, Accu-Cheks
- Consult diabetes nurse practitioner
Other problems:
GERD
Essential hypertension: cont Clonidine/Norvasc
HLD
Dementia with behavioral disturbances
Severe dysphagia due to advanced dementia: c/s speech and nutrition
Failure to thrive
h/o cerebrovascular accident
History of severe protein calorie malnutrition
History of cerebral aneurysm
FULL code as per [place] records
Lovenox
[2024-07-10 15:17] LABS: Glucose - Point of Care 291 mg/dl (70-99)
[2024-07-10] MEDS: LANTUS 0.08 UNITS SC (16:57)
[2024-07-10 16:58] LABS: Glucose - Point of Care 254 mg/dl (70-99)
[2024-07-10] MEDS: 0.45%NACL 1000 IV (19:32)
[2024-07-10] MEDS: LOVENOX 40 MG SC (19:32)
[2024-07-10] MEDS: NOVOLOG FLEXPEN-MODERATE RESISTANCE 5 UNITS SC (19:39)
[2024-07-10 19:43] LABS: Glucose - Point of Care 284 mg/dl (70-99)
[2024-07-10 20:55] LABS: Glucose - Point of Care 265 mg/dl (70-99)
[2024-07-10] MEDS: CATAPRES 0.1 MG TUBE (21:57)
[2024-07-10] MEDS: MAGNESIUM OXIDE 500 MG TUBE (21:57)
[2024-07-10] MEDS: LAMICTAL 100 MG TUBE (21:57)
[2024-07-10 22:23] LABS: Blood Urea Nitrogen 48 mg/dl (7-17); Calcium 9.5 mg/dl (8.4-10.2); Carbon Dioxide 30 mmol/L (22-30); Chloride 124 mmol/L (98-107); Estimated Creatinine Clearance 37 ml/min; Glucose 271 mg/dl (70-99); Potassium 4.4 mmol/L (3.5-5.1); Sodium 162 mmol/L (135-145); eGFR 56.25
[2024-07-10 23:47] LABS: Glucose - Point of Care 215 mg/dl (70-99)
[2024-07-10] MEDS: NOVOLOG FLEXPEN-MODERATE RESISTANCE 3 UNITS SC (23:54)
[2024-07-11] MEDS: REMERON TUBE (00:49)
[2024-07-11] MEDS: HALDOL TUBE (00:49)
[2024-07-11 02:48] VITALS: BP 129/71
[2024-07-11] MEDS: 0.45%NACL 1000 IV ×2 (03:12→11:36)
[2024-07-11 05:35] LABS: Glucose - Point of Care 171 mg/dl (70-99)
[2024-07-11 05:35] LABS: Blood Urea Nitrogen 51 mg/dl (7-17); Calcium 9.2 mg/dl (8.4-10.2); Carbon Dioxide 25 mmol/L (22-30); Chloride 123 mmol/L (98-107); Estimated Creatinine Clearance 34 ml/min; Glucose 191 mg/dl (70-99); Potassium 4.3 mmol/L (3.5-5.1); Sodium 158 mmol/L (135-145); eGFR 50.17
[2024-07-11] MEDS: NOVOLOG FLEXPEN-MODERATE RESISTANCE 1 UNITS SC ×2 (05:36→14:13)
[2024-07-11 06:54] LABS: Hematocrit 42.5 % (37.0-47.0); Mean Corp Hgb Conc. 30.6 g/dL (33.0-37.0); Mean Corpuscular Hgb 26.5 pg (27.0-31.0); Mean Corpuscular Volume 86.6 fL (81.0-99.0); Mean Platelet Volume 10.9 fL (7.4-10.4); Platelet Count 153 10^3/uL (130-400); Red Blood Cell Count 4.91 10^6/uL (4.20-5.40); Red Cell Dist. Width 15.9 % (11.5-14.5); White Blood Cell Count 11.9 10^3/uL (4.8-10.8)
--- NOTE | 2024-07-11 07:24 | PTCARENOTE ---
1900 pt is drowsy, but moans w/ movement. pupils 3mm reactive. pt is on tele ST PI=[phone]. MdcyGnaan=[phone]. Started IVF and administered NovoLog. pt has Gtube and iglesias. pt on aspiration precautions. and mouth care performed.
pt continue on heart monitor - SR HR=90's w/ PVC.
informed CERTIFIED ORTHOPTIST León of lab results - okay to draw next set at 0400.
0200 pt on tele in vent trigeminy. Informed CERTIFIED ORTHOPTIST if she wanted additional labs drawn.
[2024-07-11 07:28] VITALS: BP 154/81
[2024-07-11 07:29] LABS: Magnesium 2.9 mg/dl (1.6-2.3)
[2024-07-11] MEDS: MAGNESIUM OXIDE 500 MG TUBE ×2 (08:25→20:45)
[2024-07-11] MEDS: HALDOL 2 MG TUBE ×2 (08:25→20:46)
[2024-07-11] MEDS: PEPCID 20 MG TUBE (08:25)
[2024-07-11] MEDS: CATAPRES 0.1 MG TUBE ×2 (08:25→20:45)
[2024-07-11] MEDS: NORVASC 10 MG PO (08:25)
[2024-07-11] MEDS: LAMICTAL 100 MG TUBE ×2 (08:25→20:45)
--- NOTE | 2024-07-11 08:33 | PN.DE.MGMTRT ---
Insulin Management
- -
07/11/2024: Diabetes Management Consult
83 year old female who presented from [facility] with a chief complaint of altered mental status.
PMH: GERD, Essential HTN, HLD, CVA,T2DM, Dementia with behavioral disturbances. Found to have severe protein calorie malnutrition, severe dysphagia due to advanced dementia and Failure to thrive. Her diabetes is diet controlled. A1C is 9.7%, Cr 1.1,
eGFR 50.17
Pt awake, alert, resting in bed, eyes closed, non-verbal at this time, unable to provide any hx due to cognitive impairment. History is obtained from chart review.
Glucose was 772 on admission, improved with corrective insulin and Lantus 8 units, pt received 1st dose @ HS, FBG 191.
Currently NPO with PEG tube in place. Lantus administration schedule was changed to AM and dose was increased to [address] De Paz
Her current glucose range of 170 to 195 is acceptable in this pt of advanced age with severe cognitive impairment, multiple chronic illnesses and failure to thrive.
Will not make any changes to avoid stringent glucose control and allow for glucose range of 140-200, given potential risk for hypoglycemia while NPO.
Will cont to follow.
Diabetes History
- -
Type of Diabetes: 2
Pre-Admission Diabetes Regimen
07/10/24 07/10/24 07/10/24
11:43 13:09 14:33
Creatinine 1.2 H 1.1 H 1.0
07/10/24 07/10/24 07/11/24
16:45 21:43 00:21
Creatinine Cancelled 1.0 Cancelled
07/11/24
05:00
Creatinine 1.1 H
Insulin Pump Settings
IP Diabetes Regimen
07/10/24 07/10/24 07/10/24
11:28 11:43 13:09
Glucose 772 H* 695 H*
POC Glucose > 600 H*
07/10/24 07/10/24 07/10/24
14:33 15:15 16:45
Glucose 445 H Cancelled
POC Glucose 291 H
07/10/24 07/10/24 07/10/24
16:57 19:39 20:54
Glucose
POC Glucose 254 H 284 H 265 H
07/10/24 07/10/24 07/11/24
21:43 23:45 00:21
Glucose 271 H Cancelled
POC Glucose 215 H
07/11/24 07/11/24
05:00 05:34
Glucose 191 H
POC Glucose 171 H
Patient Education
[2024-07-11] MEDS: LANTUS 0.08 UNITS SC (09:17)
[2024-07-11 09:21] LABS: Glucose - Point of Care 195 mg/dl (70-99)
--- NOTE | 2024-07-11 09:37 | PTOTSP ---
Speech Therapy Evaluation:
Pt with known hx of severe oropharyngeal dysphagia 2/2 advanced dementia with subsequent PEG placement in July of 2023. At baseline, pt consumes breakfast (unknown diet level, though was previously d/c on minced and moist) with supplemental
nutrition/hydration via PEG. On this date, pt lethargic with minimal participation in bedside swallow evaluation. Attempted cold oral swab and ice chip for increased arousal. Pt with no oral opening, oral defensiveness, and moaning that increased as
SADDLE STITCHING MACHINE OPERATOR continued attempts. PO trials d/c d/t safety concerns. Pt's mentation not currently supportive of PO intake. WBC increased and CXR without PNA.
Recommend:
1. Continue NPO with primary source of nutrition/hydration via PEG
2. Medications non-oral
3. Oral care 3x/daily via suction toothbrush
4. SADDLE STITCHING MACHINE OPERATOR to follow to assess candidacy for initiation of PO diet
[2024-07-11 10:32] LABS: Glycohemoglobin (HgbA1c) 9.7 % (4.0-5.6)
[2024-07-11 11:04] VITALS: BP 121/70
[2024-07-11 11:41] LABS: Glucose - Point of Care 170 mg/dl (70-99)
[2024-07-11 11:58] VITALS: BMI 24.7
--- NOTE | 2024-07-11 12:12 | W.PN.HOSP.TC ---
Addendum entered and electronically signed by Sarath De Paz MD 07/12/24 12:15:
Dictation error: Hyponatremia is incorrect, should read hypernatremia
Original Note:
Today's Communication/Plan
-
see plan
Assessment / Plan
Assessment / Plan
Gen: NAD, NCAT
Neck: supple.
CV: RRR, +S1/S2, no m/r/g.
Resp: CTAB anteriorly, no rales, wheezes, or rhonchi.
Abd: +BS, soft, NT, ND
Skin: No rashes.
Neuro: remains CN 2-12 intact, patient moans to shoulder shake
Psych: Calm
CT brain, CT A/P and CXR are pending at this time.
Hyperglycemic, hyperosmolar, nonketotic state:
- Underlying type 2 diabetes mellitus that is diet controlled prior to admission
- with severe hyponatremia on admission
- No anion gap
- Patient was on an insulin drip in the ER when her blood glucose was in the 700s. Insulin drip stopped in the ER when BG 200s.
- Received 1 L of normal saline in the ER
- change IVFs to 1/4NS (unable to use D5W with hyperglycemia)
- Trend BMP
- increase Lantus to 10U
- Moderate resistance sliding scale insulin, Accu-Cheks
- Consult diabetes nurse practitioner
Other problems:
GERD
Essential hypertension: cont Clonidine/Norvasc
HLD
Dementia with behavioral disturbances
Severe dysphagia due to advanced dementia: PEG feeds as per nutrition
Failure to thrive
h/o cerebrovascular accident
History of severe protein calorie malnutrition
History of cerebral aneurysm
FULL code as per NH records
Lovenox
Total time spent on today's encounter was 50 minutes which included time spent in counseling the patient/family regarding diagnosis and treatment plan as listed above, goals of care, and symptom management. Case was discussed with nursing staff,
specialists, and care coordinators/case management. All labs and imaging personally reviewed by me. Remainder the time spent in detailed review of previous records, lab data, imaging, and other medical provider documentation.
Anticipated Discharge: 24 - 48 hours
Subjective/Interval History
-
Date of Service: July 11, 2024
Nonverbal.
Objective Data
-
Labs:
Laboratory Results
07/11/24 07/11/24
00:21 05:00
WBC 11.9 H
Hgb 13.0
Hct 42.5
Plt Count 153 D
Sodium Cancelled 158 H
Potassium Cancelled 4.3
Chloride Cancelled 123 H
Carbon Dioxide Cancelled 25
BUN Cancelled 51 H
Creatinine Cancelled 1.1 H
Glucose Cancelled 191 H
Calcium Cancelled 9.2
Vital Signs:
Vital Signs
Temp Pulse Resp BP Pulse Ox
98.7 F 87 20 121/70 96
07/11/24 11:04 07/11/24 11:04 07/11/24 11:04 07/11/24 11:04 07/11/24 11:04
I&O
07/10/24 07/11/24 07/12/24
06:59 06:59 06:59
Intake Total 1620 / 1620
Output Total 400 / 400
Balance 1220 / 1220
[2024-07-11 13:40] LABS: Blood Urea Nitrogen 55 mg/dl (7-17); Carbon Dioxide 26 mmol/L (22-30); Chloride 121 mmol/L (98-107); Estimated Creatinine Clearance 29 ml/min; Glucose 174 mg/dl (70-99); Potassium 4.9 mmol/L (3.5-5.1); Sodium 153 mmol/L (135-145); eGFR 41.06
[2024-07-11] MEDS: SODIUM CHLORIDE 1009.625 MEQ IV (13:59)
--- NOTE | 2024-07-11 14:50 | CM ---
CM reviewed chart, patient LTC resident [facility], per detention transfer documentation- patient has [facility] [employer], [facility]. Patient hx dementia, PEG tube. Per Admissions at [facility], patient is dependent for all care,
bedbound/ nonambulatory, total assistance required. Patient PCP James Mathews, pharmacy [facility]. Return of care referral placed in [facility] to [facility]. CM will continue to follow for all discharge planning needs.
Plan; return to [facility] LT when medically stable
[2024-07-11 14:59] VITALS: BP 137/70
[2024-07-11 17:44] LABS: Glucose - Point of Care 129 mg/dl (70-99)
[2024-07-11] MEDS: LOVENOX 40 MG SC (18:18)
[2024-07-11] MEDS: NOVOLOG FLEXPEN-MODERATE RESISTANCE SC (18:19)
[2024-07-11 19:49] VITALS: BP 130/77
[2024-07-11] MEDS: REMERON 7.5 MG TUBE (20:46)
[2024-07-11 23:42] VITALS: BP 111/72
[2024-07-12 00:11] LABS: Glucose - Point of Care 188 mg/dl (70-99)
[2024-07-12] MEDS: NOVOLOG FLEXPEN-MODERATE RESISTANCE 1 UNITS SC (00:24)
[2024-07-12] MEDS: SODIUM CHLORIDE 1009.625 MEQ IV ×2 (02:42→15:25)
[2024-07-12 03:24] VITALS: BP 143/77
[2024-07-12 06:07] LABS: Glucose - Point of Care 357 mg/dl (70-99)
[2024-07-12] MEDS: NOVOLOG FLEXPEN-MODERATE RESISTANCE 9 UNITS SC (06:08)
[2024-07-12 07:47] VITALS: BP 162/60
[2024-07-12] MEDS: LANTUS 0.1 UNITS SC (08:09)
[2024-07-12] MEDS: HALDOL 2 MG TUBE ×2 (08:09→21:08)
[2024-07-12] MEDS: NORVASC 10 MG TUBE (08:09)
[2024-07-12] MEDS: CATAPRES 0.1 MG TUBE ×2 (08:09→21:07)
[2024-07-12] MEDS: MAGNESIUM OXIDE 500 MG TUBE ×2 (08:09→21:07)
[2024-07-12] MEDS: PEPCID 20 MG TUBE (08:09)
[2024-07-12] MEDS: LAMICTAL 100 MG TUBE ×2 (08:09→21:08)
[2024-07-12] MEDS: NORVASC PO (08:12)
--- NOTE | 2024-07-12 10:19 | PN.DE.MGMTRT ---
Insulin Management
- -
07/12/2024: Diabetes Management Follow up
83 year old female who presented from [facility] with a chief complaint of altered mental status.
PMH: GERD, Essential HTN, HLD, CVA,T2DM, Dementia with behavioral disturbances. Found to have severe protein calorie malnutrition, severe dysphagia due to advanced dementia and Failure to thrive. Her diabetes is diet controlled. A1C is 9.7%, Cr 1.1,
eGFR 50.17
Pt awake, alert, resting in bed, eyes closed, non-verbal at this time, unable to discuss diabetes care plan due to cognitive impairment. No family at bedside.
Tube feeds have been started via PEG tube, glucose trending up to 357 this AM.
Will change Lantus dose to 12 units BID. Cont moderate corrective Q6hrs.
Avoid stringent glucose control. Allow for glucose range of 140-200, given potential risk for hypoglycemia in this pt of advanced age with severe cognitive impairment, multiple chronic illnesses and failure to thrive.
Will cont to follow.
Diabetes History
- -
Type of Diabetes: 2 requiring insulin
Pre-Admission Diabetes Regimen
07/11/24
12:59
Creatinine 1.3 H
Lab Results
Hemoglobin A1c 9.7 % (4.0-5.6) H 07/11/24 05:00
Insulin Pump Settings
IP Diabetes Regimen
07/11/24 07/11/24 07/11/24
11:39 12:59 17:43
Glucose 174 H
POC Glucose 170 H 129 H
07/12/24 07/12/24
00:10 06:06
Glucose
POC Glucose 188 H 357 H
Patient Education
--- NOTE | 2024-07-12 10:34 | CM ---
CM reviewed chart, patient seen asleep bedside. LTC resident of [facility], will require ambulance transport upon discharge, forms placed on chart. CM will continue to follow for all discharge planning needs.
Plan; return to [facility]
--- NOTE | 2024-07-12 10:37 | PN.CDI ---
CDI
- -
CDI:
Physician Documentation Request
Admit Date: 07/10/24 16:00
Dear Doctor Baldev,
Clinical Indicators:
Patient admitted with NK.
07/11 PN, 'with severe hyponatremia on admission'
Sodium levels:
07/10/24 07/10/24
11:43 14:33
Sodium 161 H* 163 H*
Based on the above, could you clarify in the progress notes, the appropriate diagnosis, that supports the above abnormalities and additional evaluation, monitoring and/or treatment rendered:
Hypernatremia
Other, please specify
Use of terms such as suspected, likely, concern for, or probable (associated with a specific diagnosis that is being evaluated, monitored, or treated as if it exists) are acceptable and can be coded in the inpatient setting, when documented at the
time of discharge.
Thank you,
Samantha Villalobos RN BSN
CDI Specialist
available via tiger text
Please use your independent medical judgment in providing your response.
[2024-07-12 10:43] LABS: Hematocrit 37.7 % (37.0-47.0); Hemoglobin 11.7 g/dL (12.0-16.0); Mean Corpuscular Hgb 26.3 pg (27.0-31.0); Mean Corpuscular Volume 84.7 fL (81.0-99.0); Mean Platelet Volume 11.8 fL (7.4-10.4); Platelet Count 123 10^3/uL (130-400); Red Blood Cell Count 4.45 10^6/uL (4.20-5.40); Red Cell Dist. Width 15.5 % (11.5-14.5); White Blood Cell Count 8.9 10^3/uL (4.8-10.8)
--- NOTE | 2024-07-12 10:47 | PN.CDI ---
CDI
- -
CDI:
Physician Documentation Request
Admit Date: 07/10/24 16:00
Dear Doctor Baldev,
Clinical Indicators:
Patient admitted with HHNK; PMN includes dementia & dysphagia, currently tube fed.
07/11 PT/OT assessments: Non ambulatory, bedbound, total assist with all self care
07/11, 07/12 Nursing assessments: Contractures to right elbow, wrist and hand
07/11 Case Management note, 'patient is dependent for all care, bedbound/ nonambulatory, total assistance required.'
Based on the above, could you clarify in the progress notes, the appropriate diagnosis, if significant, that supports the above abnormalities and additional evaluation, monitoring and/or treatment rendered:
Functional quadriplegia (complete immobility due to severe physical disability or frailty)
Age related weakness or frailty (without complete immobility)
Other, please specify
Use of terms such as suspected, likely, concern for, or probable (associated with a specific diagnosis that is being evaluated, monitored, or treated as if it exists) are acceptable and can be coded in the inpatient setting, when documented at the
time of discharge.
Thank you,
Samantha Villalobos RN BSN
CDI Specialist
available via tiger text
Please use your independent medical judgment in providing your response.
[2024-07-12 11:00] LABS: Blood Urea Nitrogen 45 mg/dl (7-17); Calcium 8.8 mg/dl (8.4-10.2); Carbon Dioxide 26 mmol/L (22-30); Chloride 116 mmol/L (98-107); Estimated Creatinine Clearance 37 ml/min; Glucose 176 mg/dl (70-99); Potassium 4.1 mmol/L (3.5-5.1); Sodium 148 mmol/L (135-145); eGFR 56.25
[2024-07-12 11:41] VITALS: BP 106/57
--- NOTE | 2024-07-12 12:14 | W.PN.HOSP.TC ---
Today's Communication/Plan
-
see plan
Assessment / Plan
Assessment / Plan
Gen: NAD, awake and alert, NCAT
Eyes: EOMI, no scleral icterus, thick discharge from eyes R>L
Neck: supple.
CV: RRR, +S1/S2, no m/r/g.
Resp: remains CTAB anteriorly, no rales, wheezes, or rhonchi.
Abd: +BS, soft, NT, ND
Skin: No rashes.
Neuro: remains CN 2-12 intact
Psych: Calm
CT brain, CT A/P and CXR are pending at this time.
Hyperglycemic, hyperosmolar, nonketotic state:
- Underlying type 2 diabetes mellitus that is diet controlled prior to admission
- with severe hypernatremia on admission
- No anion gap
- Patient was on an insulin drip in the ER when her blood glucose was in the 700s. Insulin drip stopped in the ER when BG 200s.
- Received 1 L of normal saline in the ER
- cont 1/4NS (unable to use D5W with hyperglycemia)
- Na improving
- increase Lantus to 12U
- Moderate resistance sliding scale insulin, Accu-Cheks
- Diabetes nurse practitioner following
Other problems:
Functional quadriplegia
GERD
Essential hypertension: cont Clonidine/Norvasc
HLD
Dementia with behavioral disturbances
Severe dysphagia due to advanced dementia: PEG feeds as per nutrition
Failure to thrive
h/o cerebrovascular accident
History of severe protein calorie malnutrition
History of cerebral aneurysm
Attempted to reach daughter Silvia over the phone, no answer, VM left.
FULL code as per [place] records
Lovenox
Anticipated Discharge: 24 - 48 hours
Subjective/Interval History
-
Date of Service: July 12, 2024
Patient states she has 'pain in my head.' No other complaints.
Objective Data
-
Labs:
Laboratory Results
07/12/24
10:16
WBC 8.9
Hgb 11.7 L
Hct 37.7
Plt Count 123 L
Sodium 148 H
Potassium 4.1
Chloride 116 H
Carbon Dioxide 26
BUN 45 H
Creatinine 1.0
Glucose 176 H
Calcium 8.8
Vital Signs:
Vital Signs
Temp Pulse Resp BP Pulse Ox
98.6 F 79 18 106/57 96
07/12/24 11:41 07/12/24 11:41 07/12/24 11:41 07/12/24 11:41 07/12/24 11:41
I&O
07/11/24 07/12/24 07/13/24
06:59 06:59 06:59
Intake Total 1620 / 1620 0 / 0 880 / 880
Output Total 400 / 400 300 / 300 700 / 700
Balance 1220 / 1220 -300 / -300 180 / 180
[2024-07-12 12:32] LABS: Glucose - Point of Care 210 mg/dl (70-99)
[2024-07-12] MEDS: NOVOLOG FLEXPEN-MODERATE RESISTANCE 3 UNITS SC (12:35)
[2024-07-12] MEDS: TYLENOL 650 MG TUBE (13:09)
[2024-07-12 15:48] VITALS: BP 118/62
[2024-07-12] MEDS: ERYTHROMYCIN 0.5% OPHTHALMIC OINTMENT 1 APPLIC OPHTH ×2 (17:40→21:08)
[2024-07-12] MEDS: LOVENOX 40 MG SC (17:40)
[2024-07-12] MEDS: NOVOLOG FLEXPEN-MODERATE RESISTANCE 5 UNITS SC (17:44)
[2024-07-12 17:45] LABS: Glucose - Point of Care 277 mg/dl (70-99)
[2024-07-12 19:23] VITALS: BP 132/76
[2024-07-12] MEDS: REMERON 7.5 MG TUBE (21:08)
[2024-07-12 21:15] LABS: Glucose - Point of Care 294 mg/dl (70-99)
[2024-07-12] MEDS: LANTUS 0.12 UNITS SC (21:16)
[2024-07-12 23:30] VITALS: BP 152/79
[2024-07-13] VITALS (7 sets, daily range): BP systolic 107–171; BP diastolic 57–85
[2024-07-13 00:26] LABS: Glucose - Point of Care 304 mg/dl (70-99)
[2024-07-13] MEDS: NOVOLOG FLEXPEN-MODERATE RESISTANCE 7 UNITS SC (00:32)
[2024-07-13] MEDS: SODIUM CHLORIDE 1009.625 MEQ IV ×2 (04:06→16:49)
[2024-07-13 06:33] LABS: Glucose - Point of Care 254 mg/dl (70-99)
[2024-07-13] MEDS: NOVOLOG FLEXPEN-MODERATE RESISTANCE 5 UNITS SC ×3 (06:34→23:59)
[2024-07-13] MEDS: LANTUS 0.12 UNITS SC (07:35)
[2024-07-13] MEDS: MAGNESIUM OXIDE 500 MG TUBE ×2 (07:36→21:25)
[2024-07-13] MEDS: NORVASC 10 MG TUBE (07:36)
[2024-07-13] MEDS: LAMICTAL 100 MG TUBE ×2 (07:36→21:25)
[2024-07-13] MEDS: CATAPRES 0.1 MG TUBE ×2 (07:36→21:25)
[2024-07-13] MEDS: ERYTHROMYCIN 0.5% OPHTHALMIC OINTMENT OPHTH ×4 (07:37→17:50)
[2024-07-13] MEDS: PEPCID 20 MG TUBE (07:37)
[2024-07-13] MEDS: HALDOL 2 MG TUBE ×2 (07:37→21:25)
--- NOTE | 2024-07-13 09:07 | PN.DE.MGMTRT ---
Insulin Management
- -
07/13/2024: Diabetes Management Follow up
83 year old female who presented from [facility] with a chief complaint of altered mental status.
PMH: GERD, Essential HTN, HLD, CVA,T2DM, Dementia with behavioral disturbances. Found to have severe protein calorie malnutrition, severe dysphagia due to advanced dementia and Failure to thrive. Her diabetes is diet controlled. A1C is 9.7%, Cr 1.1,
eGFR 50.17
Pt awake, resting in bed, non-verbal, unable to discuss diabetes care plan due to cognitive impairment. No family at bedside.
Tube feeds continued @ goal of 45 cc/hr via PEG tube, glucose remains elevated 210 to 277, FBG 254 this AM.
Will increase Lantus to 16 units BID. pt already received 12 units of Lantus this morning, will give 1 time dose of 8 units now. Cont moderate corrective Q6hrs.
Will consider adding Q6 hr standing dose of NovoLog if Hyperglycemia persists.
Gaol is to avoid stringent glucose control to allow for glucose range of 140-200, given potential risk for hypoglycemia in this pt of advanced age with severe cognitive impairment, multiple chronic illnesses and failure to thrive.
Will cont to follow. Discussed with Nurse.
Diabetes History
- -
Type of Diabetes: 2 requiring insulin
Pre-Admission Diabetes Regimen
07/12/24
10:16
Creatinine 1.0
Lab Results
Hemoglobin A1c 9.7 % (4.0-5.6) H 07/11/24 05:00
Insulin Pump Settings
IP Diabetes Regimen
07/12/24 07/12/24 07/12/24
10:16 12:31 17:44
Glucose 176 H
POC Glucose 210 H 277 H
07/12/24 07/13/24 07/13/24
21:14 00:25 06:31
Glucose
POC Glucose 294 H 304 H 254 H
Patient Education
[2024-07-13] MEDS: LANTUS 0.08 UNITS SC (09:52)
--- NOTE | 2024-07-13 11:08 | W.PN.HOSP.TC ---
Addendum entered and electronically signed by Sarath De Paz MD 07/13/24 13:55:
ITZ on CKD3a
Original Note:
Today's Communication/Plan
-
awaiting labs, likely d/c today
Assessment / Plan
Assessment / Plan
Gen: NAD, awake and alert, NCAT
Eyes: EOMI, no scleral icterus
Neck: supple.
CV: RRR, +S1/S2, no m/r/g.
Resp: remains CTAB anteriorly, no rales, wheezes, or rhonchi.
Abd: +BS, soft, NT, ND
Skin: No rashes.
Neuro: remains CN 2-12 intact
Psych: Calm
CT brain, CT A/P and CXR are pending at this time.
Hyperglycemic, hyperosmolar, nonketotic state:
- Underlying type 2 diabetes mellitus that is diet controlled prior to admission
- a1c 9.7%
- with severe hypernatremia on admission
- No anion gap
- Patient was on an insulin drip in the ER when her blood glucose was in the 700s. Insulin drip stopped in the ER when BG 200s.
- Received 1 L of normal saline in the ER
- cont 1/4NS (unable to use D5W with hyperglycemia)
- Na improving
- Lantus increased to 16U
- Moderate resistance sliding scale insulin, Accu-Cheks
- Diabetes nurse practitioner following
Other problems:
Functional quadriplegia
GERD
Essential hypertension: cont Clonidine/Norvasc
HLD
Dementia with behavioral disturbances
Severe dysphagia due to advanced dementia: PEG feeds as per nutrition
Failure to thrive
h/o cerebrovascular accident
History of severe protein calorie malnutrition
History of cerebral aneurysm
FULL code as per [place] records
Lovenox
Anticipated Discharge: Today
Subjective/Interval History
-
Date of Service: July 13, 2024
Denies any pain.
Objective Data
-
Labs:
Laboratory Results
07/13/24
06:00
WBC Pending
Hgb Pending
Hct Pending
Plt Count Pending
Sodium Pending
Potassium Pending
Chloride Pending
Carbon Dioxide Pending
BUN Pending
Creatinine Pending
Glucose Pending
Calcium Pending
Vital Signs:
Vital Signs
Temp Pulse Resp BP Pulse Ox
98.2 F 87 22 107/57 99
07/13/24 07:34 07/13/24 07:34 07/13/24 07:34 07/13/24 07:36 07/13/24 03:09
I&O
07/12/24 07/13/24 07/14/24
06:59 06:59 06:59
Intake Total 0 / 0 2680 / 2680
Output Total 300 / 300 1400 / 1400
Balance -300 / -300 1280 / 1280
--- NOTE | 2024-07-13 12:17 | PN.CDI ---
CDI
- -
CDI:
Physician Documentation Request
Admit Date: 07/10/24 16:00
Dear Doctor Baldev,
Clinical Indicators:
Patient admitted with HHNK; PMN includes HTN, diabetes mellitus.
Cr/GFR trend:
07/10/24 07/10/24 07/10/24
11:43 13:09 14:33
Creatinine 1.2 H 1.1 H 1.0
eGFR 45.19 50.17 56.25
07/10/24 07/11/24 07/11/24
21:43 21:43 10:16
Creatinine 1.0 1.3 1.0
eGFR 56.25 41.06 56.25
Please clarify which of the following accurately represents the patient's renal status:
ITZ
ITZ on CKD (please specify stage)
Rise in creatinine only
Other, please specify
Criteria for ITZ*
1 Increase in serum creatinine by > or = to 0.3 mg/dL (> or = to 26.5 micromol/L) within 48 hours, OR
2 Increase in serum creatinine to > or = to 1.5 times baseline, which is known or presumed to have occurred within 7 days, OR
3 Urine volume < 0.5 nL/kg/hour for six hours
Stages of Chronic Kidney Disease*
Level Description GFR
G1 Normal or High >90
G2 Mildly decreased 60-89
G3a Mildly to moderately decreased 45-59
G3b Moderately to severely decreased 30-44
G4 Severely decreased 15-29
G5 Kidney failure <15
Use of terms such as suspected, likely, concern for, or probable (associated with a specific diagnosis that is being evaluated, monitored, or treated as if it exists) are acceptable and can be coded in the inpatient setting, when documented at the
time of discharge.
Thank you,
Samantha Villalobos RN BSN
CDI Specialist
available via tiger text
Please use your independent medical judgment in providing your response.
*Source: Kidney Disease: Improving Global Outcomes (KDIGO) 2012
[2024-07-13 12:35] LABS: Glucose - Point of Care 384 mg/dl (70-99)
[2024-07-13] MEDS: NOVOLOG FLEXPEN-MODERATE RESISTANCE 9 UNITS SC (12:35)
[2024-07-13] MEDS: ERYTHROMYCIN 0.5% OPHTHALMIC OINTMENT 1 APPLIC OPHTH ×2 (12:35→21:27)
[2024-07-13 17:44] LABS: Glucose - Point of Care 281 mg/dl (70-99)
[2024-07-13] MEDS: LOVENOX 40 MG SC (17:45)
[2024-07-13] MEDS: LANTUS 0.16 UNITS SC (21:24)
[2024-07-13] MEDS: REMERON 7.5 MG TUBE (21:27)
[2024-07-13 23:44] LABS: Glucose - Point of Care 254 mg/dl (70-99)
[2024-07-14 03:41] VITALS: BP 158/89
[2024-07-14 05:55] LABS: Glucose - Point of Care 302 mg/dl (70-99)
[2024-07-14] MEDS: NOVOLOG FLEXPEN-MODERATE RESISTANCE 7 UNITS SC (05:56)
[2024-07-14 07:10] VITALS: BP 141/65
--- NOTE | 2024-07-14 07:43 | W.PN.HOSP.TC ---
Today's Communication/Plan
-
d/c
Assessment / Plan
Assessment / Plan
Gen: NAD, NCAT
CV: remains RRR, +S1/S2, no m/r/g.
Resp: CTAB anteriorly, no rales, wheezes, or rhonchi.
Abd: +BS, soft, NT, ND
Skin: No rashes.
Neuro: sleeping
CT brain, CT A/P and CXR are pending at this time.
Hyperglycemic, hyperosmolar, nonketotic state:
- Underlying type 2 diabetes mellitus that is diet controlled prior to admission
- a1c 9.7%
- with severe hypernatremia on admission
- No anion gap
- Patient was on an insulin drip in the ER when her blood glucose was in the 700s. Insulin drip stopped in the ER when BG 200s.
- Received 1 L of normal saline in the ER
- cont 1/4NS (unable to use D5W with hyperglycemia)
- Na now 141
- was on Lantus now changed to 70/30 30U BID by diabetes AUTOMATION SPECIALIST
- Moderate resistance sliding scale insulin, Accu-Cheks
Other problems:
Functional quadriplegia
GERD
Essential hypertension: cont Clonidine/Norvasc
HLD
Dementia with behavioral disturbances
Severe dysphagia due to advanced dementia: PEG feeds as per nutrition
Failure to thrive
h/o cerebrovascular accident
History of severe protein calorie malnutrition
History of cerebral aneurysm
FULL code as per [place] records
Lovenox
Medically cleared for discharge.
Total time spent on d/c = 32 min. This included today's physical exam, progress note, review of laboratory and diagnostic data, preparation of discharge documents and prescriptions, and discussions about the pt's hospital course and discharge plan
with the patient and other medical information specialist involved in the patient's care.
Anticipated Discharge: Today
Subjective/Interval History
-
Date of Service: July 14, 2024
Patient sleeping.
Objective Data
-
Labs:
Laboratory Results
07/13/24 07/14/24
15:00 06:00
Sodium Cancelled Pending
Potassium Cancelled Pending
Chloride Cancelled Pending
Carbon Dioxide Cancelled Pending
BUN Cancelled Pending
Creatinine Cancelled Pending
Glucose Cancelled Pending
Calcium Cancelled Pending
Vital Signs:
Vital Signs
Temp Pulse Resp BP Pulse Ox
97.4 F 86 18 158/89 99
07/14/24 03:41 07/14/24 03:41 07/14/24 03:41 07/14/24 03:41 07/14/24 03:41
I&O
07/13/24 07/14/24 07/15/24
06:59 06:59 06:59
Intake Total 2680 / 2680 2600 / 2600
Output Total 1400 / 1400
Balance 1280 / 1280 2600 / 2600
[2024-07-14] MEDS: PEPCID 20 MG TUBE (09:53)
[2024-07-14] MEDS: NORVASC 10 MG TUBE (09:53)
[2024-07-14] MEDS: HALDOL 2 MG TUBE (09:53)
[2024-07-14] MEDS: MAGNESIUM OXIDE 500 MG TUBE (09:53)
[2024-07-14] MEDS: CATAPRES 0.1 MG TUBE (09:53)
[2024-07-14] MEDS: LAMICTAL 100 MG TUBE (09:53)
[2024-07-14] MEDS: ERYTHROMYCIN 0.5% OPHTHALMIC OINTMENT 1 APPLIC OPHTH ×3 (09:54→17:37)
[2024-07-14] MEDS: LANTUS 0.16 UNITS SC (09:54)
--- NOTE | 2024-07-14 10:28 | PN.DE.MGMTRT ---
Insulin Management
- -
07/14/2024: Diabetes Management Follow up
83 year old female who presented from [facility] with a chief complaint of altered mental status.
PMH: GERD, Essential HTN, HLD, CVA,T2DM, Dementia with behavioral disturbances. Found to have severe protein calorie malnutrition, severe dysphagia due to advanced dementia and Failure to thrive. Her diabetes is diet controlled. A1C is 9.7%, Cr 1.1,
eGFR 50.17
Pt awake, resting in bed, non-verbal, unable to discuss diabetes care plan due to cognitive impairment. No family at bedside.
Tube feeds continued @ goal of 45 cc/hr via PEG tube, glucose remains elevated 254 to 384, requiring 5-9 units of corrective insulin. FBG 302 POC this AM.
Will STOP Lantus and switch to NovoLog 70/30 mixture for better glucose control. Cont moderate corrective Q6hrs.
Gaol is to avoid stringent glucose control to allow for glucose range of 140-200, given potential risk for hypoglycemia in this pt of advanced age with severe cognitive impairment, multiple chronic illnesses and failure to thrive.
Will cont to follow. Discussed with Nurse.
Diabetes History
- -
Type of Diabetes: 2 requiring insulin
Pre-Admission Diabetes Regimen
07/13/24
15:00
Creatinine Cancelled
Lab Results
Hemoglobin A1c 9.7 % (4.0-5.6) H 07/11/24 05:00
Insulin Pump Settings
IP Diabetes Regimen
07/13/24 07/13/24 07/13/24
12:34 15:00 17:43
Glucose Cancelled
POC Glucose 384 H 281 H
07/13/24 07/14/24
23:42 05:54
Glucose
POC Glucose 254 H 302 H
Patient Education
[2024-07-14 11:13] LABS: Blood Urea Nitrogen 27 mg/dl (7-17); Calcium 8.4 mg/dl (8.4-10.2); Carbon Dioxide 29 mmol/L (22-30); Chloride 107 mmol/L (98-107); Estimated Creatinine Clearance 42 ml/min; Glucose 232 mg/dl (70-99); Potassium 4.7 mmol/L (3.5-5.1); Sodium 141 mmol/L (135-145); eGFR > 60.00
[2024-07-14 11:30] VITALS: BP 108/53
--- NOTE | 2024-07-14 11:41 | CM ---
Addendum entered by Mala Means 07/14/24 12:48:
Patient scheduled for 5:30 p.m. transport
Original Note:
CM reviewed chart, patient for discharge today, return to [facility]. Clinical updates sent via [facility]. Patient will require ambulance transport. Updates to [facility], admissions at [facility]. IMM reviewed with [facility] as they are patients
Guardian. CM will continue to follow for all discharge planning needs.
Plan; return to [facility] LT, ambulance transport
[facility]:
Report: [phone], ask for third floor nurses station
[2024-07-14 11:50] LABS: Glucose - Point of Care 257 mg/dl (70-99)
[2024-07-14] MEDS: NOVOLOG FLEXPEN-MODERATE RESISTANCE 5 UNITS SC (12:48)
--- NOTE | 2024-07-14 13:05 | W.DCSUMMARY ---
Discharge Summary
Discharge Data
Date of Admission: 07/10/24
Date of Discharge: 07/14/24
-
Pending Results: No
Hospital Course
Primary diagnoses:
Hyperglycemic, hyperosmolar, nonketotic state
Severe hypernatremia/free water deficit
Acute metabolic encephalopathy
Secondary diagnoses:
Leukocytosis, reactive
Functional quadriplegia
Gastroesophageal reflux disease
Essential hypertension: cont Clonidine/Norvasc
Hyperlipidemia
Dementia with behavioral disturbances
Severe dysphagia due to advanced dementia
Failure to thrive
h/o cerebrovascular accident
History of severe protein calorie malnutrition
History of cerebral aneurysm
Consultants:
Diabetes nurse practitioner
Imaging:
CT brain: here is no acute change. There is a large focus of encephalomalacia in the left frontal and temporal lobes.
CT A/P: Air in the bladder is likely related to Felipe catheter. There is diverticulosis but no evidence of diverticulitis. There is a gastrostomy tube in the stomach.
CXR: There is mild cardiomegaly but no evidence of decompensation.
Hospital course: 83-year-old female who presented with a change in mental status as outlined in the H&P on admission. On admission the patient was found to be in HHNK and was also found to have severe hypernatremia/free water deficit. She was
initially placed on an insulin drip but her blood glucose improved from the 700s to 200s in the ER. She was volume resuscitated with hypotonic IV fluids. Her sodium improved to 141. She was initially on Lantus and then transition to 70/30 30U BID
by the diabetes REINFORCING BAR SETTER at the time of discharge. Patient was discharged in medically stable condition. Overall her prognosis is extremely poor.
Discharge Plan
-
Patient Disposition: Skilled Nursing/SNF
Discharge Diagnosis/Procedures: Hyperglycemic, hyperosmolar, nonketotic state
Severe hypernatremia/free water deficit
Condition: Fair
Diet: Tube feeding
Additional Diets: Jevity 1.5 at 45cc/hr with 25cc free water flushes every hour
Activity: With assistance
Driving Restrictions: No driving
Blood Work: BMP and CBC in 1 week, script from PCP
Referrals:
James Mathews, DO [Family Provider] - in less than 1 week
Prescriptions:
New
insulin asp prt-insulin aspart [Novolog Mix 70-30FlexPen U-100] 100 unit/mL (70-30) Insulin Pen
30 unit SC BID@0800,1700 Qty: 5 0RF
Rx Instructions:
TAKE 30 UNITS TWICE A DAY
Continued
clonidine HCl 0.1 mg Tablet
0.1 mg feeding tube BID Qty: 0 0RF
acetaminophen 325 mg Tablet
650 mg feeding tube Q6HPRN PRN (Reason: mild pain, temp>101) Qty: 0 0RF
famotidine 20 mg Tablet
20 mg feeding tube DAILY Qty: 0 0RF
Enema 19-7 gram/118 mL Enema
135 ml CA DAILY PRN (Reason: if suppository is ineffective) Qty: 0 0RF
haloperidol 2 mg Tablet
2 mg feeding tube BID Qty: 0 0RF
lamotrigine 100 mg Tablet
100 mg feeding tube BID Qty: 60 0RF
polyethylene glycol 3350 [HealthyLax] 17 gram Powder In Packet
17 g feeding tube DAILYPRN PRN (Reason: constipation) Qty: 0 0RF
mirtazapine 7.5 mg Tablet
7.5 mg feeding tube HS Qty: 0 0RF
sorbitol 70 % Solution
30 ml feeding tube [id number] PRN (Reason: if no bm x 3 days) Qty: 0 0RF
amlodipine [Norvasc] 10 mg Tablet
10 mg PO DAILY
Creon 3,000-9,500- 15,000 unit Capsule,Delayed Release(Dr/Ec)
1 cap PO DAILYPRN PRN (Reason: clogged feeding tube)
magnesium oxide 400 mg magnesium Tablet
400 mg feeding tube BID
bisacodyl 10 mg suppository
10 mg CA DAILYPRN PRN (Reason: if mom ineffective)
Discharge Orders:
Discharge Patient (As Directed); Ordered 07/14/24
Ordered By: Sarath De Paz
Discharge Date and Time
Print Language: TURKMEN
[2024-07-14 15:37] VITALS: BP 109/64
[2024-07-14 17:19] LABS: Glucose - Point of Care 246 mg/dl (70-99)
[2024-07-14] MEDS: LOVENOX 40 MG SC (17:37)
[2024-07-14] MEDS: NOVOLOG FLEXPEN-MODERATE RESISTANCE 3 UNITS SC (17:39)
[2024-07-14] MEDS: NOVOLOG MIX 70/30 FLEXPEN 30 UNITS SC (17:41)
== END 2024-07-14 19:23 | DRG 637 ==
LOC: 4 WEST ACU 16:00
PROVIDERS: ADMITTING PHYSICIAN Internal Medicine; EMERGENCY PHYSICIAN Emergency Medicine; FAMILY PHYSICIAN Internal Medicine
DX: E11.65 Type 2 diabetes mellitus with hyperglycemia (principal); E11.00 Type 2 diabetes mellitus with hyperosmolarity without nonketotic hyperglycemic-hyperosmolar coma (NKHHC); G93.41 Metabolic encephalopathy; R53.2 Functional quadriplegia; E87.0 Hyperosmolality and hypernatremia; F03.918 Unspecified dementia, unspecified severity, with other behavioral disturbance; N17.9 Acute kidney failure, unspecified; E78.00 Pure hypercholesterolemia, unspecified; D72.829 Elevated white blood cell count, unspecified; K21.9 Gastro-esophageal reflux disease without esophagitis; R13.10 Dysphagia, unspecified; N18.30 Chronic kidney disease, stage 3 unspecified; R62.7 Adult failure to thrive; K59.00 Constipation, unspecified; I12.9 Hypertensive chronic kidney disease with stage 1 through stage 4 chronic kidney disease, or unspecified chronic kidney disease; Z86.73 Personal history of transient ischemic attack (TIA), and cerebral infarction without residual deficits; Z79.4 Long term (current) use of insulin; Z79.899 Other long term (current) drug therapy
CPT/HCPCS: 51702; 70450; 71045; 74176; 80048; 80053; 81003; 81015; 82010; 82805; 82962; 83036; 83735; 85025; 85027; 87070; 87086; 87147; 92526; 92610; 93005; 96361; 96365; 96366; 96375; 99291